=== PATIENT | male | born 1935 | race Caucasian/White ===

== ENCOUNTER 2016-05-30 14:34 | Emergency (ER) | payer MEDICARE, BC ==
[2016-05-30 14:53] VITALS: BP 134/68
--- NOTE | 2016-05-30 15:55 | UC ---
Ear Complaint HPI - HPI Summary HPI Summary: ONE WEEK RIGHT EAR PAIN, MILD TENDERNESS (RIGHT SIDE) WITH SWALLOWING. HISTORY OF FREQUENT EAR INFECTIONS. - History of Current Complaint Chief Complaint: UCEar Stated Complaint: EAR COMPLAINT Time Seen by Provider: 05/30/16 14:49 Hx Obtained From: Patient Onset/Duration: Sudden Onset, Lasting Days, Still Present Severity Initially: Moderate Severity Currently: Moderate Pain Intensity: 5 Pain Scale Used: 0-10 Numeric Associated Signs/Symptoms: Negative: Hearing Loss, Foreign Body Sensation, Trauma to Ear, Swelling @, URI Symptoms - Allergies/Home Medications Allergies/Adverse Reactions: Allergies Allergy/AdvReac Type Severity Reaction Status Date / Time IVP DYE Allergy Intermediate Hives Uncoded 05/30/16 14:53 PMH/Surg Hx/FS Hx/Imm Hx Previously Healthy: Yes Endocrine History Of: Reports: Diabetes - TYPE 2 Denies: Thyroid Disease Cardiovascular History Of: Reports: Hypertension Denies: Cardiac Disorders, Pacemaker/ICD Respiratory History Of: Reports: COPD, Asthma - INHALER, Bronchitis - chronic GI/ History Of: Reports: Kidney Stones - ABOUT 10 YEARS AGO, NO PROBLEMS Denies: Ulcer Neurological History Of: Denies: Seizures, Migraine Psychological History Of: Denies: Anxiety, Depression - Surgical History Surgical History: Yes Surgery Procedure, Year, and Place: LESION REMOVED OFF CHEST, NON MALIGNANT- 2014, [place]. STENT PLACED- 2000. ANGIOPLASTIES-. right eye surgery for glaucoma- 2016. RIGHT eye cataract- 2016 - Family History Known Family History: Positive: Cardiac Disease, Hypertension - Social History Occupation: Retired Lives: With Family Alcohol Use: Occasionally Substance Use Type: None Smoking Status (MU): Former Smoker Amount Used/How Often: 1.5PPD When Did the Patient Quit Smoking/Using Tobacco: 30 YEARS AGO - Immunization History Most Recent Influenza Vaccination: 2016 Review of Systems Constitutional: Negative Skin: Negative Eyes: Negative ENT: Sore Throat, Ear Ache Respiratory: Negative Cardiovascular: Negative Gastrointestinal: Negative Genitourinary: Negative Motor: Negative Neurovascular: Negative Musculoskeletal: Negative Neurological: Negative Psychological: Negative All Other Systems Reviewed And Are Negative: Yes Physical Exam Triage Information Reviewed: Yes Appearance: Well-Appearing, No Pain Distress, Well-Nourished Vital Signs: Initial Vital Signs Temp 96.3 F 05/30/16 14:47 Pulse 67 05/30/16 14:47 Resp 20 03/25/17 14:47 BP 134/68 05/30/16 14:47 Pulse Ox 95 05/30/16 14:47 ENT: Positive: Hearing grossly normal, Pharynx normal, TM dull, TM red - RIGHT EAR Dental Exam: Normal Neck exam: Normal Neck: Positive: Supple, Nontender, No Lymphadenopathy Respiratory Exam: Normal Respiratory: Positive: Chest non-tender, Lungs clear, Normal breath sounds, No respiratory distress, No accessory muscle use Cardiovascular Exam: Normal Cardiovascular: Positive: RRR, No Murmur, Pulses Normal Abdominal Exam: Normal Abdomen Description: Positive: Nontender, No Organomegaly Musculoskeletal Exam: Normal Musculoskeletal: Positive: Strength Intact, ROM Intact Neurological Exam: Normal Psychological Exam: Normal Psychological: Positive: Normal Response To Family Skin Exam: Normal Ear Complaint Course/Dx - Differential Dx/Diagnosis Differential Diagnosis/HQI/PQRI: Otitis Externa, Otitis Media Provider Diagnoses: RIGHT EAR OTITIS MEDIA Discharge - Discharge Plan Condition: Stable Disposition: HOME Prescriptions: Amoxicillin/Clavulanate TAB* [Augmentin TAB 875*] 875 mg PO BID #20 tab Patient Education Materials: Otitis Media (ED) Referrals: Robin Nazario MD [Medical Doctor] -
== END 2016-05-30 15:30 | disposition home or self-care (01) ==
LOC: UCEAST 14:34
DX: H66.91 Otitis media, unspecified, right ear (principal); I10 Essential (primary) hypertension; E11.9 Type 2 diabetes mellitus without complications; J45.909 Unspecified asthma, uncomplicated; J42 Unspecified chronic bronchitis; Z87.442 Personal history of urinary calculi; Z91.041 Radiographic dye allergy status; Z87.891 Personal history of nicotine dependence
CPT/HCPCS: 99212; G0463

== ENCOUNTER 2016-12-29 16:19 | Emergency (ER) | payer MEDICARE, BC ==
--- NOTE | 2016-12-29 17:26 | RAD ---
INDICATION: Hypoglycemia COMPARISON: June 22, 2009 TECHNIQUE: PA and lateral views were obtained. FINDINGS: Bones/Soft Tissues: There are no acute bony findings. Cardiomediastinal: The cardiomediastinal silhouette is normal. Lungs: There is hyperinflation with mild chronic interstitial changes. Pleura: There are no pleural effusions. Other: None IMPRESSION: HYPERINFLATION. NO ACTIVE DISEASE.
[2016-12-29 17:40] LABS: Hematocrit 47 % (42-52); Mean Corpuscular HGB Conc 32 g/dl (31-36); Mean Corpuscular Hemoglobin 27 pg (27-31); Mean Corpuscular Volume 85 fL (80-94); Mean Platelet Volume 9 um3 (7.4-10.4); Red Blood Count 5.53 10^6/ul (4.0-5.4); Red Cell Distribution Width 18 % (10.5-15); White Blood Count 12.6 10^3/ul (3.5-10.8)
[2016-12-29 17:46] LABS: Venous Bicarbonate HCO3 24.7 mmol/L (24-28)
[2016-12-29 18:18] LABS: Albumin 3.6 g/dL (3.2-5.2); BUN/Creatinine Ratio 26.3 (8-20); C Reactive Protein 7.52 mg/L (< 5.00); Calcium 8.7 mg/dL (8.6-10.3); EGFR African American 93.3 (>60); EGFR Non-African American 72.6 (>60); Globulin 3.1 g/dL (2-4); Magnesium 2.3 mg/dL (1.9-2.7); Potassium 3.7 mmol/L (3.5-5.0); Total Bilirubin 0.7 mg/dL (0.2-1.0); Total Protein 6.7 g/dL (6.4-8.9)
[2016-12-29 18:55] LABS: Troponin I 0.02 ng/mL (<0.04)
[2016-12-29 19:03] VITALS: BP 130/65
--- NOTE | 2016-12-31 07:17 | ED ---
Rashard Sue Benjamin, scribed for Erwin San MD on 12/29/16 at 1713 . HPI Diabetic - HPI Summary HPI Summary: 81yo male c/o sudden onset of shaking and jerking this morning in a parking lot. Pt was also pale and briefly passed out. Pt is diabetic and symptoms resolved after receiving glucose. Pt states he may have taken insulin without having a meal. According to family, pt has also been confused lately, unable to remember very familiar places with his house. No hx of aFib. - History Of Current Complaint Chief Complaint: EDDiabeticProb Time Seen by Provider: 12/29/16 16:50 Hx Obtained From: Patient, Family/Quality Control Inspector - daughter Onset/Duration: Sudden Onset, Lasting Minutes, Resolved Timing: Constant Severity Initially: Moderate Severity Currently: Mild Character: Comatose Aggravating: Diet Change - no food intake after taking insulin Alleviating: Other - glucose Associated Signs & Symptoms: Decreased Level of Conciousness - Allergies/Home Medications Allergies/Adverse Reactions: Allergies Allergy/AdvReac Type Severity Reaction Status Date / Time IVP DYE Allergy Intermediate Hives Uncoded 05/30/16 14:53 PMH/Surg Hx/FS Hx/Imm Hx Endocrine/Hematology History: Reports: Hx Diabetes - TYPE 2, Hx Anemia - TAKES IRON Denies: Hx Thyroid Disease Cardiovascular History: Reports: Hx Coronary Artery Disease, Hx Hypertension Denies: Hx Pacemaker/ICD Respiratory History: Reports: Hx Asthma - INHALER, Hx Chronic Obstructive Pulmonary Disease (COPD) Denies: Hx Sleep Apnea GI History: Reports: Hx Gastroesophageal Reflux Disease Denies: Hx Crohn's Disease, Hx Irritable Bowel, Hx Ulcer History: Reports: Hx Kidney Stones - ABOUT 10 YEARS AGO, NO PROBLEMS Denies: Hx Kidney Infection, Other Problems/Disorders Musculoskeletal History: Reports: Hx Arthritis - KNEES Sensory History: Reports: Hx Cataracts - surgery 11/26, Hx Contacts or Glasses - READING Denies: Hx Hearing Aid Opthamlomology History: Reports: Hx Cataracts - surgery 11/26, Hx Contacts or Glasses - READING Neurological History: Denies: Hx Headaches, Hx Migraine, Hx Seizures Psychiatric History: Denies: Hx Anxiety, Hx Depression - Surgical History Surgery Procedure, Year, and Place: LESION REMOVED OFF CHEST, NON MALIGNANT- 2014, [place]. STENT PLACED- 2000. ANGIOPLASTIES-. right eye surgery for glaucoma- 2016. RIGHT eye cataract- 2016 Hx Anesthesia Reactions: No Infectious Disease History: No Infectious Disease History: Denies: Hx Hepatitis, Hx Human Immunodeficiency Virus (HIV), Traveled Outside the [place] in Last 30 Days - Family History Known Family History: Positive: Cardiac Disease, Hypertension - Social History Lives: With Family Alcohol Use: Occasionally Substance Use Type: Reports: None Smoking Status (MU): Former Smoker Amount Used/How Often: 1.5PPD Review of Systems Positive: Other - diabetic Sz Eyes: Negative ENT: Negative Cardiovascular: Negative Respiratory: Negative Gastrointestinal: Negative Genitourinary: Negative Musculoskeletal: Negative Skin: Negative Positive: Syncope Psychological: Normal All Other Systems Reviewed And Are Negative: Yes Physical Exam - Summary Physical Exam Summary: VITAL SIGNS: Reviewed. GENERAL: Patient is a well-developed and nourished male who is lying comfortable in the stretcher. Patient is not in any acute respiratory distress. HEAD AND FACE: No signs of trauma. No ecchymosis, hematomas or skull depressions. No sinus tenderness. EYES: PERRLA, EOMI x 2, No injected conjunctiva, no nystagmus. EARS: Hearing grossly intact. Ear canals and tympanic membranes are within normal limits. MOUTH: Oropharynx within normal limits. NECK: Supple, trachea is midline, no adenopathy, no JVD, no carotid bruit, no c- spine tenderness, neck with full ROM. CHEST: Symmetric, no tenderness at palpation LUNGS: Clear to auscultation bilaterally. No wheezing or crackles. CVS: Regular rate and rhythm, S1 and S2 present, no murmurs or gallops appreciated. ABDOMEN: Soft, non-tender. No signs of distention. No rebound no guarding, and no masses palpated. Bowel sounds are normal. EXTREMITIES: FROM in all major joints, no edema, no cyanosis or clubbing. NEURO: Alert and oriented x 3. No acute neurological deficits. Speech is normal and follows commands. SKIN: Dry and warm Triage Information Reviewed: Yes Vital Signs On Initial Exam: Initial Vitals Temp Pulse Resp BP Pulse Ox 97.3 F 74 18 151/63 90 12/29/16 16:46 12/29/16 16:46 12/29/16 16:46 12/29/16 16:46 12/29/16 16:46 Vital Signs Reviewed: Yes - Roman Coma Scale Coma Scale Total: 15 Diagnostics - Vital Signs Vital Signs Temp Pulse Resp BP Pulse Ox 12/29/16 16:46 97.3 F 74 18 151/63 90 - Laboratory Lab Results: Lab Results 12/29/16 Range/Units 16:53 POC Glucose (mg/dL) 176 H (70-100) mg/dL Result Diagrams: 12/29/16 17:29 12/29/16 17:29 Lab Statement: Any lab studies that have been ordered have been reviewed, and results considered in the medical decision making process. - Radiology CXR Xray Interpretation: No Acute Changes - IMPRESSION: HYPERINFLATION. NO ACTIVE DISEASE. Radiology Interpretation Completed By: Radiologist - ED physician has reviewed this radiology report and agrees. - EKG 1721. Cardiac Rate: NL - 76bpm EKG Rhythm: Sinus Rhythm Ectopy: None EKG Interpretation: ST depression in V2 to V4. Diabetic Course/Dx - Course Assessment/Plan: 81yo male c/o sudden onset of shaking and jerking this morning in a parking lot. Pt was also pale and briefly passed out. Pt is diabetic and symptoms resolved after receiving glucose. Pt states he may have taken insulin without having a meal. According to family, pt has also been confused lately, unable to remember very familiar places with his house. No hx of aFib. Pt denies CP, SOB, and palpitations. He has no cardiac complaints. I believe all of his symptoms are due to hypoglycemia since he injected insulin without eating. Pts symptoms resolved soon after eating eventually. Therefore, pt will be discharged with follow up referral to his PCP. - Diagnoses Differential Dx: Diabetic Ketoacidosis, Hyperglycemia, Hypoglycemia Provider Diagnoses: Hypoglycemia associated with diabetes Discharge - Discharge Plan Condition: Stable Disposition: HOME Patient Education Materials: Hypoglycemia in a Person with Diabetes (ED) Referrals: Edward Bain MD [Primary Care Provider] - The documentation as recorded by the Rashard greco Benjamin accurately reflects the service I personally performed and the decisions made by me, Erwin San MD.
== END 2016-12-29 19:14 | disposition home or self-care (01) ==
LOC: ED 16:19
DX: E11.649 Type 2 diabetes mellitus with hypoglycemia without coma (principal); R55 Syncope and collapse; Z87.891 Personal history of nicotine dependence
CPT/HCPCS: 36415; 71020; 80053; 82550; 82803; 83605; 83735; 84484; 85025; 86140; 93005; 99283

== ENCOUNTER 2017-04-21 16:53 | Inpatient (IN) | payer MEDICARE, BC ==
--- NOTE | 2017-04-21 18:08 | RAD ---
Indication: Syncope. CT of the brain was performed without IV contrast. Ventricular structures are midline. No midline shift is noted. Central and cortical atrophy is noted. There is no evidence of intracranial mass or hemorrhage. No other high or low density lesions are identified. Mastoid air cells and paranasal sinuses are otherwise unremarkable. No fracture is noted. IMPRESSION: No intracranial mass or hemorrhage is noted.
[2017-04-21 18:17] LABS: EGFR Non-African American 70.1 (>60)
--- NOTE | 2017-04-21 18:21 | RAD ---
Indication: Syncope. 2 views of the chest including dual energy PA views demonstrates cardiomegaly. Interstitial edema consistent with vascular congestion is noted. No evidence of alveolar consolidation is noted. When compared to previous exam of December 29, 2016 no significant change is noted. IMPRESSION: Findings consistent with mild vascular congestion.
[2017-04-21 18:40] LABS: Hematocrit 25 % (42-52); Hemoglobin 7.4 g/dl (14.0-18.0); Mean Corpuscular HGB Conc 29 g/dl (31-36); Mean Corpuscular Hemoglobin 21 pg (27-31); Mean Corpuscular Volume 72 fL (80-94); Mean Platelet Volume 9 um3 (7.4-10.4); Platelet Count 175 10^3/ul (150-450); Red Blood Count 3.54 10^6/ul (4.0-5.4); Red Cell Distribution Width 25 % (10.5-15); White Blood Count 11.1 10^3/ul (3.5-10.8)
[2017-04-21 18:44] LABS: ABS Basophils 0.1 10^3/ul (0-0.2); ABS Eosinophils 0.1 10^3/ul (0-0.6); ABS Lymphocytes 0.7 10^3/ul (1.0-4.8); ABS Monocytes 0.9 10^3/ul (0-0.8); ABS Neutrophils 9.3 10^3/ul (1.5-7.7); ABS Nucleated RBC 0 10^3/ul; Eosinophil % 0.7 % (0-6); Lymphocyte % 6.7 % (25-47); Nucleated Red Blood Cells % 0.2
[2017-04-21] MEDS ORDERED: Potassium Chlor TAB* 20 MEQ TAB.ER PO ONE (18:53)
[2017-04-21] MEDS ORDERED: Docusate CAP* 100 MG PO PRN (20:32)
[2017-04-21] MEDS ORDERED: Senna TAB PO PRN (20:32)
[2017-04-21] MEDS ORDERED: Al Hydrox/Mg Hydrox/Simet LIQ* 30 ML UDC PO PRN (20:32)
[2017-04-21] MEDS ORDERED: Acetaminophen TAB* 325 MG PO PRN (20:32)
[2017-04-21] MEDS ORDERED: Ondansetron INJ* 2 MG/ML VIAL IV PRN (20:32)
[2017-04-21] MEDS ORDERED: Pantoprazole IV* 40 MG IV ONE (20:37)
[2017-04-21] MEDS ORDERED: Polyethylene Glycol 3350* 17 GM PACKET PO PRN (20:45)
[2017-04-21] MEDS ORDERED: Dextrose 50% Syringe 50 ML* 25 GM/50 ML SYRINGE IV PUSH PRN (20:46)
[2017-04-21 20:50] LABS: Urine Appearance Clear; Urine Blood Negative (Negative); Urine Color Straw; Urine Ketones Negative (Negative); Urine Protein Negative (Negative); Urine Urobilinogen Negative (Negative)
[2017-04-21] MEDS ORDERED: Furosemide IV* 10 MG/ML 2 ML VIAL (20 MG) IV ONE (22:00)
--- NOTE | 2017-04-21 22:03 | RAD ---
Indication: Constipation. Flat plate of the abdomen demonstrates no free air. Small bowel demonstrates no abnormal dilatation. Stool is present throughout colon. Patient status post cholecystectomy. No organomegaly is noted. Degenerative changes of the lumbar spine is noted. IMPRESSION: STOOL IS PRESENT THROUGHOUT THE COLON. PATIENT STATUS POST CHOLECYSTECTOMY.
[2017-04-21 23:28] LABS: Hematocrit 23 % (42-52); Hemoglobin 6.7 g/dl (14.0-18.0)
--- NOTE | 2017-04-22 00:15 | HP ---
CC: Edward Bain MD * HISTORY AND PHYSICAL: DATE OF ADMISSION: 04/21/17 TIME OF EVALUATION: 1999. PRIMARY CARE PHYSICIAN: Edward Bain MD CHIEF COMPLAINT: Syncope. HISTORY OF PRESENT ILLNESS: This is an 81-year-old male with a past medical history of pulmonary hypertension on 8 L of oxygen, COPD, and diastolic heart failure, who states he has not been feeling well recently. He went to see his captain room service in [place], Dr. Sanchez, for a followup. He saw the nurse practitioner. Because he was fluid overloaded and doubled up on his Lasix on the , he lost about 10 pounds in 4 days. That morning he really did not eat or drink very much. He went in to see them, they took blood, he felt dizzy with the headache all day. He came back home. While he was getting into the house off his oxygen, he fell flat on his face. He states 2 days while he was driving, he seemed really out of it, he was swerving, his was trying to straighten out. He missed the driveway. He did not pass out, but the states he was very out of it. He also states that for the past 2 weeks he has been constipated, which is very unusual for him. He denied any NSAID use. He does have a history of polyps in the past. His last colonoscopy was several years ago and Dr. Alvarez said he did not need to have any more colonoscopies after that. He denies any blood in his stool or bright red blood per rectum or black stools. He has over the past 2 years lost a considerable amount of weight from 190 pounds to 153 pounds. He was 166 pounds a week ago prior to doubling up on his Lasix. The patient denies any shortness of breath at rest. He has no chest pain, no nausea, vomiting. No abdominal discomfort. He does not use inhalers for his COPD. He had an issue with terrible itching when he stopped all of his medications and inhalers to try to limit an adverse reaction contributing to the itching, which did improve the itching. He is scheduled to set up to see Dr. Morrow from Pulmonology, he has not yet seen her yet, but he has an appointment in May. In the emergency room, the patient had labs, imaging, he was given potassium and was referred to the hospitalist service for further evaluation. PAST MEDICAL HISTORY: 1. Diabetes. 2. Diastolic heart failure. 3. COPD. 4. Pulmonary hypertension, on 8 L of oxygen. 5. History of coronary artery disease status post PCI. 6. Hyperlipidemia. 7. History of cholecystectomy. MEDICATIONS: 1. Aspirin 81 mg daily. 2. Lasix 10 mg daily. 3. Atorvastatin 80 mg daily. 4. Vitamin D 1000 units daily. 5. PreserVision AREDS 2 softgel 1 each p.o. daily. ALLERGIES: He is allergic to CONTRAST DYE, develops hives. SOCIAL HISTORY: He lives at home with his . He has limited mobility due to his respiratory status. His is his healthcare proxy. He quit smoking 30 years ago. At that time, he smoked 2 packs per day for 25 years. Rare alcohol use. I did address the code status. He wishes to be a DNR/DNI. FAMILY HISTORY: Mother from old age. Father at age 79 from an [place]. REVIEW OF SYSTEMS: A 14-point review of systems as mentioned in the HPI, otherwise negative. PHYSICAL EXAMINATION GENERAL: Frail elderly male in no acute distress, pale appearing, with his and his daughter at the bedside. VITAL SIGNS: Temp 97.6, pulse rate 77, respiratory rate 21, oxygen saturation 98% on 4 L, blood pressure 105/55. HEENT: Head: Normocephalic. Pupils equal and reactive, anicteric. Oropharynx : Mucous membranes are moist. NECK: Supple. No lymphadenopathy. RESPIRATORY: Diminished breath sounds. No wheezes, rhonchi, or rales. Increased work of breathing. CARDIAC: Regular rate and rhythm. Soft systolic murmur heard, most pronounced at the right sternal base. ABDOMEN: Positive bowel sounds, soft, nontender, nondistended. EXTREMITIES: No clubbing, cyanosis or edema. +1 DPs. NEUROLOGIC: Alert, oriented x3. No focal neurologic deficits. DIAGNOSTIC STUDIES/LAB DATA: White count 11, hemoglobin 7.4, hematocrit 25, platelets 175,000. Sodium is 139, potassium 3.3, chloride 99, bicarb 30, BUN 27 , creatinine 1.02, glucose 284. Lactic acid 3.8. Troponin 0.05. BNP 1095. TSH is 2. Radiographic data. Head CT, no intracranial mass or hemorrhage is noted. Chest x-ray, findings consistent with mild vascular congestion. EKG, sinus rhythm with some ST depression in the lateral leads. ASSESSMENT: This is an 81-year-old male with past medical history of severe pulmonary hypertension, on 8 L of oxygen with diastolic heart failure, who presents to the emergency room after having a syncopal episode. 1. Syncope. Assessment: This appears to be likely vasovagal in the setting of hypovolemia being aggressively diuresed and with his anemia added to that. He just had an echocardiogram done at [facility] on Wednesday, the . We will obtain those records. Plan: We will admit him to telemetry. I am going to give him a unit of blood and give him Lasix. Following his unit, going to hold his p.o. Lasix for now and have the team assess him in the morning for when it is appropriate to resume this. We will hold his aspirin in the setting of GI bleed. We will follow up on his echo results. No indication of repeating his echo. Trend his troponin, monitor his H and H and place him on PPI. In regards to the etiology behind his GI bleed, I am concerned for an underlying malignancy and weight loss and his bowel changes. I discussed at length that he would not tolerate endoscopy or EGD due to his severe pulmonary hypertension. Also of note, he states when he eats food, it feels like there is a knot in his epigastric region , so concerning for an underlying malignancy. I also do not think he would tolerate any management such as chemotherapy or surgery for malignancy. I think starting with an abdominal film to rule out significant constipation and following up with goals of care after getting the echocardiogram results from outside hospital. I discussed with them at length that he may be a candidate for hospice, but without all the information at hand, it is hard to make that decision right now. He seems to be agreeable to pursuing this if it is appropriate. I think if his echo shows severe pulmonary hypertension, it may be worthwhile having Dr. Morrow see him to discuss any further management for him prior to discharge and discussion of hospice eligibility for him. CHRONIC MEDICAL PROBLEMS: 1. Diastolic heart failure. Assessment and plan. I think he is over diuresed. I am giving home Lasix after his blood. We will hold his home Lasix dose for now and reassess with I's and O's, daily weights and clinical exam. 2. Diabetes. Continue Lantus at a lower level of 20 and lispro sliding scale. 3. For the hyperlipidemia, continue his Lipitor 80. 4. We will hold his aspirin as mentioned. 5. FEN. Place him on a low salt heart healthy diet. 6. DVT prophylaxis. We will place the patient on SCDs in the setting of his GI bleed. 7. Code status. DNR/DNI. MOLST form will be completed. TIME SPENT: Greater than 75 minutes was spent doing the history and physical, more than half the time spent in direct patient contact. [id number]/CPS #: [id number] MARTIN
[2017-04-22 06:00] LABS: ABS Basophils 0.1 10^3/ul (0-0.2); ABS Eosinophils 0.2 10^3/ul (0-0.6); ABS Lymphocytes 1.3 10^3/ul (1.0-4.8); ABS Neutrophils 9.4 10^3/ul (1.5-7.7); ABS Nucleated RBC 0 10^3/ul; Eosinophil % 1.6 % (0-6); Hematocrit 27 % (42-52); Lymphocyte % 11.1 % (25-47); Mean Corpuscular HGB Conc 30 g/dl (31-36); Mean Corpuscular Hemoglobin 22 pg (27-31); Mean Corpuscular Volume 74 fL (80-94); Mean Platelet Volume 10 um3 (7.4-10.4); Nucleated Red Blood Cells % 0; Platelet Count 171 10^3/ul (150-450); Red Blood Count 3.62 10^6/ul (4.0-5.4); Red Cell Distribution Width 24 % (10.5-15)
[2017-04-22 06:23] LABS: EGFR Non-African American 72.6 (>60)
[2017-04-22] MEDS: Pantoprazole IV* 40 MG IV SCH (07:57)
[2017-04-22] MEDS: Cholecalciferol TAB* 1000 UNITS PO SCH (07:57)
[2017-04-22] MEDS: Atorvastatin* 80 MG TAB PO SCH (07:57)
[2017-04-22] MEDS: Insulin GLARGINE(*) 1 UNITS UNIT SUBCUT SCH (07:57)
[2017-04-22] MEDS: [UNRECOGNIZED DRUG - OTHER] PO SCH (07:58)
[2017-04-22] MEDS: Insulin LISPRO* 1 UNITS UNIT SUBCUT SCH ×3 (09:36→18:19)
--- NOTE | 2017-04-22 14:14 | PN ---
Subjective Date of Service: 04/22/17 Interval History: Mr. Yun reports feeling ok other than feeling tired. He denies chest pain, SOB, nausea, or abdominal pain. He has ambulated in his room with no symptoms of lightheadedness or dizziness. He is tolerating oral intake. Objective Active Medications: Acetaminophen (Tylenol Tab*) 650 mg PO Q4H PRN Al Hydrox/Mg Hydrox/Simethicone (Maalox Plus*) 30 ml PO Q6H PRN Atorvastatin Calcium (Lipitor*) 80 mg PO DAILY JASON Cholecalciferol (Vitamin D Tab*) 1,000 units PO DAILY JASON Dextrose (D50w Syringe 50 Ml*) 12.5 gm IV PUSH .FOR FS < 60 - SS PRN Docusate Sodium (Colace Cap*) 100 mg PO BID PRN Insulin Glargine (Lantus(*)) 20 units SUBCUT Q24H JASON Insulin Human Lispro (Humalog*) 0 units SUBCUT AC JASON Nf: (Vit C/E/Zn/Coppr/Lutein/Zeaxan [Preservision Areds 2 Softgel] 1 each PO DAILY JASON Ondansetron HCl (Zofran Inj*) 4 mg IV Q4H PRN Pantoprazole Sodium (Protonix Iv*) 40 mg IV Q24H JASON Polyethylene Glycol/Electrolytes (Miralax*) 17 gm PO DAILY PRN Senna (Senokot Tab*) 1 tab PO BID PRN Vital Signs - 8 hr Vital Signs: Temp Pulse Resp BP Pulse Ox 97.5 F 65 16 109/57 99 04/22/17 08:00 04/22/17 08:00 04/22/17 08:00 04/22/17 08:00 04/22/17 08:00 Oxygen Devices in Use Now: High Flow Nasal Cannula Appearance: Male lying in bed in NAD Eyes: No Scleral Icterus Ears/Nose/Mouth/Throat: Mucous Membranes Moist Neck: Trachea Midline Respiratory: Symmetrical Chest Expansion and Respiratory Effort, - - Diminished breath sounds Cardiovascular: NL Sounds; No Murmurs; No JVD, No Edema Abdominal: NL Sounds; No Tenderness; No Distention Lymphatic: No Cervical Adenopathy Extremities: No Edema Skin: No Rash or Ulcers Neurological: Alert and Oriented x 3, NL Muscle Strength and Tone Nutrition: Taking PO's Result Diagrams: 04/22/17 05:45 04/22/17 05:45 Assess/Plan/Problems-Billing Assessment: Mr. Yun is an 81 yo M with a PMH of pulmonary hypertension on 8L NC at home, diabetes, diastolic HF, and COPD who was admitted on 04/21/17 with syncope. - Patient Problems (1) GI bleed Comment: - Hgb responded appropriately to one unit PRBC. - Hemodynamically stable. - Stool occult blood positive. - Patient not a good candidate for endoscopy or colonoscopy due to severe pulmonary hypertension. Will continue to monitor H/H and if bleeding does not resolve with consult GI. (2) Syncope Comment: - Suspect secondary to hypovolemia with aggressive diuresis outpatient as well as anemia. - Patient not orthostatic as of last evening. (3) Pulmonary hypertension Comment: - Severe, on 8L NC at home. (4) COPD (chronic obstructive pulmonary disease) Comment: - No evidence of acute exacerbation. - Not on meds outpatient. (5) Diabetes Comment: - BG 200 this AM. - Continue lantus and lispro SSI coverage with meals. (6) Diastolic CHF Comment: - S/P aggressive diuresis outpatient. - Obtaining most recent echo from [facility] from 04/19/17. - Continue to hold lasix for now. (7) Hyperlipidemia Comment: - Continue atorvastatin. (8) DVT prophylaxis Comment: - SCDs only in setting of GI bleeding. (9) DNR (do not resuscitate) Comment: Status and Disposition: Inpatient with expected LOS > 2 days. Plan for hospice consult.
[2017-04-22] MEDS ORDERED: Potassium Chlor TAB* 20 MEQ TAB.ER PO ONE (16:45)
[2017-04-23 05:56] LABS: Hematocrit 26 % (42-52); Hemoglobin 7.9 g/dl (14.0-18.0)
--- NOTE | 2017-04-23 08:59 | PN ---
Subjective Date of Service: 04/23/17 Interval History: Mr. Yun reports that he is feeling well today. He denies lightheadedness, chest pain, SOB, nausea, or abdominal pain. He denies melena or blood in the stool. Objective Active Medications: Acetaminophen (Tylenol Tab*) 650 mg PO Q4H PRN Al Hydrox/Mg Hydrox/Simethicone (Maalox Plus*) 30 ml PO Q6H PRN Atorvastatin Calcium (Lipitor*) 80 mg PO DAILY JASON Cholecalciferol (Vitamin D Tab*) 1,000 units PO DAILY JASON Dextrose (D50w Syringe 50 Ml*) 12.5 gm IV PUSH .FOR FS < 60 - SS PRN Docusate Sodium (Colace Cap*) 100 mg PO BID PRN Insulin Glargine (Lantus(*)) 20 units SUBCUT Q24H JASON Insulin Human Lispro (Humalog*) 0 units SUBCUT AC JASON Nf: (Vit C/E/Zn/Coppr/Lutein/Zeaxan [Preservision Areds 2 Softgel] 1 each PO DAILY JASON Ondansetron HCl (Zofran Inj*) 4 mg IV Q4H PRN Pantoprazole Sodium (Protonix Iv*) 40 mg IV Q24H JASON Polyethylene Glycol/Electrolytes (Miralax*) 17 gm PO DAILY PRN Senna (Senokot Tab*) 1 tab PO BID PRN Vital Signs: Temp Pulse Resp BP Pulse Ox 99.3 F 71 16 111/57 95 04/23/17 03:57 04/23/17 03:57 04/23/17 03:57 04/23/17 03:57 04/23/17 03:57 Oxygen Devices in Use Now: High Flow Nasal Cannula Appearance: Male lying in bed in NAD Eyes: No Scleral Icterus Ears/Nose/Mouth/Throat: Mucous Membranes Moist Neck: Trachea Midline Respiratory: Symmetrical Chest Expansion and Respiratory Effort, Clear to Auscultation Cardiovascular: NL Sounds; No Murmurs; No JVD, No Edema Abdominal: NL Sounds; No Tenderness; No Distention Lymphatic: No Cervical Adenopathy Extremities: No Edema Skin: No Rash or Ulcers Neurological: Alert and Oriented x 3, NL Muscle Strength and Tone Nutrition: Taking PO's Result Diagrams: 04/23/17 05:37 04/22/17 05:45 Assess/Plan/Problems-Billing Assessment: Mr. Yun is an 81 yo M with a PMH of pulmonary hypertension on 8L NC at home, diabetes, diastolic HF, and COPD who was admitted on 04/21/17 with syncope. - Patient Problems (1) GI bleed Comment: - Hgb stable. Hemodynamically stable. - Stool occult blood positive. - Hold aspirin. - Patient not a good candidate for endoscopy or colonoscopy due to severe pulmonary hypertension. Will continue to monitor H/H and if bleeding does not resolve with consult GI. (2) Syncope Comment: - Suspect secondary to hypovolemia with aggressive diuresis outpatient as well as anemia. - Patient not orthostatic as of last evening. (3) Pulmonary hypertension Comment: - Severe, on 8L NC at home. (4) COPD (chronic obstructive pulmonary disease) Comment: - No evidence of acute exacerbation. - Not on meds outpatient. (5) Diabetes Comment: - BG 200 this AM. - Continue lantus and lispro SSI coverage with meals. (6) Diastolic CHF Comment: - S/P aggressive diuresis outpatient. - Obtaining most recent echo from [place] from 04/19/17. - Continue to hold lasix for now. (7) Hyperlipidemia Comment: - Continue atorvastatin. (8) DVT prophylaxis Comment: - SCDs only in setting of GI bleeding. (9) DNR (do not resuscitate) Comment: Status and Disposition: Inpatient with expected LOS > 2 days. Plan for hospice consult.
[2017-04-23] MEDS: Atorvastatin* 80 MG TAB PO SCH (09:18)
[2017-04-23] MEDS: Cholecalciferol TAB* 1000 UNITS PO SCH (09:18)
[2017-04-23] MEDS: Pantoprazole IV* 40 MG IV SCH (09:19)
[2017-04-23] MEDS: Insulin LISPRO* 1 UNITS UNIT SUBCUT SCH ×3 (09:20→18:11)
[2017-04-23] MEDS: Insulin GLARGINE(*) 1 UNITS UNIT SUBCUT SCH (09:20)
[2017-04-23] MEDS: [UNRECOGNIZED DRUG - OTHER] PO SCH (09:26)
[2017-04-23] MEDS ORDERED: Potassium Chlor TAB* 20 MEQ TAB.ER PO ONE (14:29)
[2017-04-23] MEDS ORDERED: Potassium Chloride LIQUID* 20 MEQ PACKET PO ONE (16:00)
--- NOTE | 2017-04-23 16:06 | ED ---
Chriss Sue Angela, scribed for Erwin San MD on 04/21/17 at 1723 . Syncope/Near Syncope - HPI Summary HPI Summary: This pt is a 81 y/o male presenting to [facility] via EMS for a witnessed syncopal episode. Pt reports that he had a syncopal episode today when he was trying to open the door. He had LOC of 1-2 minutes. Prior to syncopal episode pt denies any pain, he states he only felt weak. Additionally throughout the day he has had "shooting" headaches lasting 10-15 seconds at a time. After he woke up, pt denies chest pain, SOB, headache. He reports he only felt weak. Pt has been on a recently prescribed diuretic for a week. Per EMS, pt's blood sugar today was 413. - History Of Current Complaint Chief Complaint: EDSyncope Time Seen by Provider: 04/21/17 17:02 Hx Obtained From: Patient Onset/Duration: Sudden Onset, Resolved Timing: Minutes - 1-2 Context: Loss Of Consciousness Activity At Onset: Other - opening a door Aggravating Factor(s): Nothing Alleviating Factor(s): Spontaneous Resolution Associated Signs And Symptoms: Headache, Other - weakness - Allergies/Home Medications Allergies/Adverse Reactions: Allergies Allergy/AdvReac Type Severity Reaction Status Date / Time IVP DYE Allergy Intermediate Hives Uncoded 05/30/16 14:53 Home Medications: Home Medications Aspirin EC Low Dose* [Ecotrin EC Low Dose 81 MG*] 81 mg PO DAILY 04/21/17 [ History Confirmed 04/21/17] Atorvastatin* [Lipitor*] 80 mg PO DAILY 04/21/17 [History Confirmed 04/21/17] Cholecalciferol TAB* [Vitamin D TAB*] 1,000 unit PO DAILY 04/21/17 [History Confirmed 04/21/17] Furosemide TAB* [Lasix TAB*] 10 mg PO DAILY 04/21/17 [History Confirmed 04/21/17 ] Vit C/E/Zn/Coppr/Lutein/Zeaxan [Preservision Areds 2 Softgel] 1 each PO DAILY [History Confirmed 04/21/17] PMH/Surg Hx/FS Hx/Imm Hx Endocrine/Hematology History: Reports: Hx Diabetes - TYPE 2, Hx Anemia - TAKES IRON Denies: Hx Thyroid Disease Cardiovascular History: Reports: Hx Coronary Artery Disease, Hx Hypertension Denies: Hx Pacemaker/ICD Respiratory History: Reports: Hx Asthma - INHALER, Hx Chronic Obstructive Pulmonary Disease (COPD) Denies: Hx Sleep Apnea GI History: Reports: Hx Gastroesophageal Reflux Disease Denies: Hx Crohn's Disease, Hx Irritable Bowel, Hx Ulcer History: Reports: Hx Kidney Stones - ABOUT 10 YEARS AGO, NO PROBLEMS Denies: Hx Kidney Infection, Other Problems/Disorders Musculoskeletal History: Reports: Hx Arthritis - KNEES Sensory History: Reports: Hx Cataracts - surgery 11/26, Hx Contacts or Glasses - READING Denies: Hx Hearing Aid Opthamlomology History: Reports: Hx Cataracts - surgery 11/26, Hx Contacts or Glasses - READING Neurological History: Denies: Hx Headaches, Hx Migraine, Hx Seizures Psychiatric History: Denies: Hx Anxiety, Hx Depression - Surgical History Surgery Procedure, Year, and Place: LESION REMOVED OFF CHEST, NON MALIGNANT- 2014, AUGUSTE. STENT PLACED- 2000. ANGIOPLASTIES-. right eye surgery for glaucoma- 2015. RIGHT eye cataract- 2015 Hx Anesthesia Reactions: No Infectious Disease History: No Infectious Disease History: Denies: Hx Hepatitis, Hx Human Immunodeficiency Virus (HIV), Traveled Outside the [place] in Last 30 Days - Family History Known Family History: Positive: Cardiac Disease, Hypertension - Social History Alcohol Use: Occasionally Substance Use Type: Reports: None Smoking Status (MU): Former Smoker Amount Used/How Often: 1.5PPD Review of Systems Negative: Fever, Chills Negative: Chest Pain Negative: Shortness Of Breath Positive: Headache, Weakness - generalized, Syncope All Other Systems Reviewed And Are Negative: Yes Physical Exam - Summary Physical Exam Summary: VITAL SIGNS: Reviewed. GENERAL: Patient is a well-developed and nourished male who is lying comfortable in the stretcher. Patient is not in any acute respiratory distress. HEAD AND FACE: No signs of trauma. No ecchymosis, hematomas or skull depressions. No sinus tenderness. EYES: PERRLA, EOMI x 2, No injected conjunctiva, no nystagmus. EARS: Hearing grossly intact. Ear canals and tympanic membranes are within normal limits. MOUTH: Oropharynx within normal limits. NECK: Supple, trachea is midline, no adenopathy, no JVD, no carotid bruit, no c- spine tenderness, neck with full ROM. CHEST: Symmetric, no tenderness at palpation LUNGS: Clear to auscultation bilaterally. No wheezing or crackles. CVS: Regular rate and rhythm, S1 and S2 present, no murmurs or gallops appreciated. ABDOMEN: Soft, non-tender. No signs of distention. No rebound no guarding, and no masses palpated. Bowel sounds are normal. Rectal Exam: Normal sphincter tone, no tomas blood or melena. EXTREMITIES: FROM in all major joints, no edema, no cyanosis or clubbing. NEURO: Alert and oriented x 3. No acute neurological deficits. Speech is normal and follows commands. SKIN: Dry and warm Triage Information Reviewed: Yes Vital Signs On Initial Exam: Initial Vitals Temp Pulse Resp BP Pulse Ox 98.2 F 70 18 104/82 96 04/21/17 16:55 04/21/17 16:55 04/21/17 16:55 04/21/17 16:55 04/21/17 16:55 Vital Signs Reviewed: Yes Diagnostics - Vital Signs Vital Signs Temp Pulse Resp BP Pulse Ox 04/21/17 16:55 98.2 F 70 18 104/82 96 - Laboratory Result Diagrams: 04/21/17 17:50 04/21/17 17:50 Lab Statement: Any lab studies that have been ordered have been reviewed, and results considered in the medical decision making process. - Radiology Chest XR Xray Interpretation: Positive (See Comments) - Findings consistent with mild vascular congestion. Dr. San has reviewed this radiology report. Radiology Interpretation Completed By: Radiologist - CT Head CT CT Interpretation: No Acute Changes - No intracranial mass or hemorrhage is noted. Dr. San has reviewed this radiology report. CT Interpretation Completed By: Radiologist - EKG 16:51 Cardiac Rate: NL EKG Rhythm: Sinus Rhythm - at 71 bpm EKG Interpretation: No ST elevation. T wave inversion V3-V6. ST depression V3- V6. EKG Comparison: No Significant Change - Different from prior EKG. Course/Dx Assessment/Plan: This pt is a 81 y/o male presenting to [facility] via EMS for a witnessed syncopal episode. Pt reports that he had a syncopal episode today when he was trying to open the door. He had LOC of 1-2 minutes. Prior to syncopal episode pt denies any pain, he states he only felt weak. Additionally throughout the day he has had "shooting" headaches lasting 10-15 seconds at a time. After he woke up, pt denies chest pain, SOB, headache. He reports he only felt weak. Pt has been on a recently prescribed diuretic for a week. Per EMS, pt's blood sugar today was 413. Test results show WBC of 11.1, microcytic anemia 7.4/25, potassium of 3.3, for which pt was given potassium chloride, lactic acid of 3.6, troponin of 0.05, BNP 1095. Head CT: No intracranial mass or hemorrhage is noted. Chest XR: Findings consistent with mild vascular congestion. In the ED course the pt was given IV fluids and potassium chloride. At this time I discussed the test results and finding with Dr. Pearson, hospitalist, who accepted the pt for admission. Pt is hemodynamically stable, alert and oriented x3. - Diagnoses Provider Diagnoses: Syncope, Symptomatic anemia, CHF exacerbation - Physician Notifications Discussed Care of Patient With: Elizabeth Pearson Time Discussed With Above Provider: 18:52 Instructed by Provider To: Other - I discussed pt care with Dr. Pearson, hospitalist, who has agreed to admit the pt. Discharge - Discharge Plan Condition: Stable Disposition: ADMITTED TO [facility] Referrals: Edward Bain MD [Primary Care Provider] - The documentation as recorded by the Chriss greco Angela accurately reflects the service I personally performed and the decisions made by me, Erwin San MD.
[2017-04-24 08:50] LABS: Hematocrit 26 % (42-52); Hemoglobin 7.7 g/dl (14.0-18.0)
[2017-04-24] MEDS: Insulin GLARGINE(*) 1 UNITS UNIT SUBCUT SCH (09:23)
[2017-04-24] MEDS: Cholecalciferol TAB* 1000 UNITS PO SCH (09:24)
[2017-04-24] MEDS: Insulin LISPRO* 1 UNITS UNIT SUBCUT SCH ×3 (09:24→17:51)
[2017-04-24] MEDS: Pantoprazole IV* 40 MG IV SCH (09:24)
[2017-04-24] MEDS: Atorvastatin* 80 MG TAB PO SCH (09:29)
[2017-04-24] MEDS: [UNRECOGNIZED DRUG - OTHER] PO SCH (09:30)
--- NOTE | 2017-04-24 14:27 | PN ---
Subjective Date of Service: 04/24/17 Interval History: Mr. Yun continues to deny any complaint. He feels that his breathing and generalized tiredness are about at baseline. He denies chest pain, SOB, nausea , or abdominal pain. Objective Active Medications: Acetaminophen (Tylenol Tab*) 650 mg PO Q4H PRN Al Hydrox/Mg Hydrox/Simethicone (Maalox Plus*) 30 ml PO Q6H PRN Atorvastatin Calcium (Lipitor*) 80 mg PO DAILY JASON Cholecalciferol (Vitamin D Tab*) 1,000 units PO DAILY JASON Dextrose (D50w Syringe 50 Ml*) 12.5 gm IV PUSH .FOR FS < 60 - SS PRN Docusate Sodium (Colace Cap*) 100 mg PO BID PRN Insulin Glargine (Lantus(*)) 20 units SUBCUT Q24H JASON Insulin Human Lispro (Humalog*) 0 units SUBCUT AC JASON Nf: (Vit C/E/Zn/Coppr/Lutein/Zeaxan [Preservision Areds 2 Softgel] 1 each PO DAILY JASON Ondansetron HCl (Zofran Inj*) 4 mg IV Q4H PRN Pantoprazole Sodium (Protonix Iv*) 40 mg IV Q24H JASON Polyethylene Glycol/Electrolytes (Miralax*) 17 gm PO DAILY PRN Senna (Senokot Tab*) 1 tab PO BID PRN Vital Signs: Temp Pulse Resp BP Pulse Ox 97.2 F 80 20 107/46 88 04/24/17 08:16 04/24/17 08:16 04/24/17 08:16 04/24/17 08:16 04/24/17 08:16 Oxygen Devices in Use Now: High Flow Nasal Cannula Appearance: Male lying in bed in NAD Eyes: No Scleral Icterus Ears/Nose/Mouth/Throat: Mucous Membranes Moist Neck: Trachea Midline Respiratory: Symmetrical Chest Expansion and Respiratory Effort, Clear to Auscultation Cardiovascular: NL Sounds; No Murmurs; No JVD, No Edema Abdominal: NL Sounds; No Tenderness; No Distention Extremities: No Edema Skin: No Rash or Ulcers Neurological: Alert and Oriented x 3, NL Muscle Strength and Tone Nutrition: Taking PO's Result Diagrams: 04/24/17 06:32 04/24/17 06:32 Assess/Plan/Problems-Billing Assessment: Mr. Yun is an 81 yo M with a PMH of pulmonary hypertension on 8L NC at home, diabetes, diastolic HF, and COPD who was admitted on 04/21/17 with syncope. - Patient Problems (1) GI bleed Comment: - Hgb drifting down. Hemodynamically stable. - Plan for another unit PRBC given cardiopulmonary co-morbidities. - Stool occult blood positive. - Hold aspirin. - Patient not a good candidate for endoscopy or colonoscopy due to severe pulmonary hypertension. Will continue to monitor H/H and if bleeding does not resolve with consult GI. (2) Syncope Comment: - Suspect secondary to hypovolemia with aggressive diuresis outpatient as well as anemia. - Patient not orthostatic as of last evening. (3) Pulmonary hypertension Comment: - Severe, on 8L NC at home. (4) COPD (chronic obstructive pulmonary disease) Comment: - No evidence of acute exacerbation. - Not on meds outpatient. (5) Diabetes Comment: - BG 200 this AM. - Continue lantus and lispro SSI coverage with meals. (6) Diastolic CHF Comment: - S/P aggressive diuresis outpatient. - Obtaining most recent echo from [place] from 04/19/17. - Continue to hold lasix for now. (7) Hyperlipidemia Comment: - Continue atorvastatin. (8) DVT prophylaxis Comment: - SCDs only in setting of GI bleeding. (9) DNR (do not resuscitate) Comment: Status and Disposition: Inpatient with expected LOS > 2 days. Plan for palliative consult given severe pulmonary hypertension.
[2017-04-25 06:24] LABS: Hematocrit 28 % (42-52); Hemoglobin 8.8 g/dl (14.0-18.0)
[2017-04-25] MEDS: Atorvastatin* 80 MG TAB PO SCH (09:06)
[2017-04-25] MEDS: Pantoprazole IV* 40 MG IV SCH (09:06)
[2017-04-25] MEDS: Cholecalciferol TAB* 1000 UNITS PO SCH (09:06)
[2017-04-25] MEDS: Insulin LISPRO* 1 UNITS UNIT SUBCUT SCH ×2 (09:07→12:46)
[2017-04-25] MEDS: [UNRECOGNIZED DRUG - OTHER] PO SCH (09:07)
[2017-04-25] MEDS: Insulin GLARGINE(*) 1 UNITS UNIT SUBCUT SCH (09:07)
--- NOTE | 2017-04-25 12:44 | PN ---
Subjective Date of Service: 04/25/17 Interval History: Mr. Yun still feels well and is happy for discharge today. Objective Active Medications: Acetaminophen (Tylenol Tab*) 650 mg PO Q4H PRN Al Hydrox/Mg Hydrox/Simethicone (Maalox Plus*) 30 ml PO Q6H PRN Atorvastatin Calcium (Lipitor*) 80 mg PO DAILY JASON Cholecalciferol (Vitamin D Tab*) 1,000 units PO DAILY JASON Dextrose (D50w Syringe 50 Ml*) 12.5 gm IV PUSH .FOR FS < 60 - SS PRN Docusate Sodium (Colace Cap*) 100 mg PO BID PRN Insulin Glargine (Lantus(*)) 20 units SUBCUT Q24H JASON Insulin Human Lispro (Humalog*) 0 units SUBCUT AC JASON Ondansetron HCl (Zofran Inj*) 4 mg IV Q4H PRN Pantoprazole Sodium (Protonix Iv*) 40 mg IV Q24H JASON Polyethylene Glycol/Electrolytes (Miralax*) 17 gm PO DAILY PRN Senna (Senokot Tab*) 1 tab PO BID PRN Vital Signs - 8 hr 04/25/17 04/25/17 07:25 08:00 Temperature 97.8 F Pulse Rate 70 Respiratory 18 18 Rate Blood Pressure 128/61 (mmHg) O2 Sat by Pulse 94 Oximetry Oxygen Devices in Use Now: High Flow Nasal Cannula Appearance: Male lying in bed in NAD Eyes: No Scleral Icterus Ears/Nose/Mouth/Throat: Mucous Membranes Moist Neck: Trachea Midline Respiratory: Symmetrical Chest Expansion and Respiratory Effort, Clear to Auscultation Cardiovascular: NL Sounds; No Murmurs; No JVD, No Edema Abdominal: NL Sounds; No Tenderness; No Distention Lymphatic: No Cervical Adenopathy Extremities: No Edema Skin: No Rash or Ulcers Neurological: Alert and Oriented x 3, NL Muscle Strength and Tone Nutrition: Taking PO's Result Diagrams: 04/25/17 05:38 04/24/17 06:32 Assess/Plan/Problems-Billing Assessment: Mr. Yun is an 81 yo M with a PMH of pulmonary hypertension on 8L NC at home, diabetes, diastolic HF, and COPD who was admitted on 04/21/17 with syncope. - Patient Problems (1) GI bleed Comment: - Hgb 8.8 after 2 units PRBC since admission. - Asymptomatic. - Stool occult blood positive. - Hold aspirin. - Patient not a good candidate for endoscopy or colonoscopy due to severe pulmonary hypertension. - Patient to have close follow up with PCP and GI if needed (2) Syncope Comment: - Suspect secondary to hypovolemia with aggressive diuresis outpatient as well as anemia. - Patient not orthostatic as of last evening. (3) Pulmonary hypertension Comment: - Severe, on 8L NC at home. (4) COPD (chronic obstructive pulmonary disease) Comment: - No evidence of acute exacerbation. - Not on meds outpatient. (5) Diabetes Comment: - Continue lantus and lispro SSI coverage with meals. (6) Diastolic CHF Comment: - Resume home lasix. (7) Hyperlipidemia Comment: - Continue atorvastatin. (8) DVT prophylaxis Comment: - SCDs only in setting of GI bleeding. (9) DNR (do not resuscitate) Comment: Status and Disposition: Inpatient with expected LOS > 2 days. Discharge to home.
[2017-04-25 12:58] VITALS: BP 103/50
--- NOTE | 2017-04-26 12:01 | DS ---
CC: Dr. Bain. * DISCHARGE SUMMARY: DATE OF ADMISSION: 04/21/17 DATE OF DISCHARGE: 04/25/17 PRIMARY CARE PHYSICIAN: Dr. Bain. ATTENDING PHYSICIAN: Dr. Richard Holcomb * (dictation provided by Vanessa Reilly NP) PRIMARY DIAGNOSES: 1. Anemia. 2. Suspected upper GI bleed. SECONDARY DIAGNOSES: 1. Type 2 diabetes. 2. Diastolic congestive heart failure. 3. Chronic obstructive pulmonary disease. 4. Pulmonary hypertension on 8 liters oxygen. 5. History of coronary artery disease status post PCI. 6. Hyperlipidemia. 7. History of cholecystectomy. MEDICATIONS AT THE TIME OF DISCHARGE: Hold aspirin. 1. Lasix 10 mg p.o. daily. 2. Atorvastatin 80 mg p.o. daily. 3. Vitamin D of 1000 units p.o. daily. 4. PreserVision AREDS 2 softgels 1 each p.o. daily. 5. Omeprazole 20 mg p.o. b.i.d. HOSPITAL COURSE: Mr. Yun is an 81-year-old male with a past medical history of diabetes and severe pulmonary hypertension on 8 liters of oxygen at home, diastolic congestive heart failure, and COPD who presented to the hospital on after a syncopal episode at home. Please see the dictated H and P from Luly Rosario for complete details. In brief, at the time of admission it was reported that the patient had just seen his nurse practitioner at [facility] due to fluid overload on the 16 of April. It is reported that he had lost about 10 pounds over 4 days with increased diuresis for fluid overload. He got up in the morning on the day of admission and synopsized and fell "flat on his face". He had also had a period a couple of days prior where he felt out of it and was confused. In the emergency room Mr. Yun had labs which showed a hemoglobin of 7.4, his last hemoglobin from our records was from December 2016 and it was 15 at that time. The patient's guaiac stool was positive. He was hemodynamically stable without tachycardia or hypotension. Mr. Yun was admitted to the hospital. His aspirin was held and he was started on Protonix b.i.d. He was given 1 unit of blood. The following day his hemoglobin was 8. On April 24 his hemoglobin had fallen to 7.7 likely in part due to blood draws perhaps with equilibration, but based on his numerous comorbidities he was transfused an additional unit. Today his hemoglobin is 8.8. I reviewed this case several times with Dr. Garcia from gastroenterology. We note that the patient would be a poor candidate for endoscopic evaluation given his severe pulmonary hypertension and 8 liters home oxygen. It is also likely that given the slow nature of the bleed that we might not find a treatable source. Plan was to hold the patient's aspirin and to monitor for 24 to 48 hours which we have accomplished. The patient has no overt evidence of bleeding. Our hope is that he will hopefully stop bleeding on his own, especially given they were holding aspirin and adding in a Proton-pump inhibitor b.i.d. Mr. Yun is feeling well today. He is up ambulating in his room without any difficulty. He is tired and short of breath at times, but he states this is entirely consistent with his baseline history of severe pulmonary hypertension on 8 liters nasal cannula. Mr. Yun is to follow up with a hemoglobin and hematocrit check on Wednesday with results forwarded to Dr. Bain. I have also asked that he follow up closely with Dr. Bain or someone from his staff this week. DISPOSITION: Home. DIET: Regular. ACTIVITY: As tolerated. FOLLOWUP PLANS: 1. Please follow up with Dr. Bain within the next week. 2. Please follow up with hemoglobin and hematocrit on Wednesday of this week. 3. Please follow up with gastroenterology as needed regarding this suspected slow upper GI bleed. TIME SPENT: Approximately 60 minutes were spent on the discharge of this patient, more than half the time spent with the patient at the bedside reviewing the events leading up to and during this hospitalization, performing the physical examination, and reviewing my plan of care. VANESSA REILLY NP [id number]/[facility] #: [id number] [facility]
== END 2017-04-25 16:14 | disposition home or self-care (01) | DRG 812 ==
LOC: ED 16:53 → MEDTELE 20:32
PROVIDERS: ADMIT Pediatrics; ATTEND Internal Medicine
PROC: 30233N1 Transfusion of Nonautologous Red Blood Cells into Peripheral Vein, Percutaneous Approach (ICD-10-PCS; principal; 2017-04-21)
DX: D64.9 Anemia, unspecified (principal); I11.0 Hypertensive heart disease with heart failure; I50.30 Unspecified diastolic (congestive) heart failure; I27.20 Pulmonary hypertension, unspecified; K92.2 Gastrointestinal hemorrhage, unspecified; E11.9 Type 2 diabetes mellitus without complications; J44.9 Chronic obstructive pulmonary disease, unspecified; I25.10 Atherosclerotic heart disease of native coronary artery without angina pectoris; E78.5 Hyperlipidemia, unspecified; Z98.61 Coronary angioplasty status; Z99.81 Dependence on supplemental oxygen; Z79.82 Long term (current) use of aspirin; Z79.899 Other long term (current) drug therapy; Z91.041 Radiographic dye allergy status; Z87.891 Personal history of nicotine dependence; Z66 Do not resuscitate; Z82.49 Family history of ischemic heart disease and other diseases of the circulatory system; E86.1 Hypovolemia
CPT/HCPCS: 36415; 70450; 71046; 74018; 80048; 80053; 81003; 82270; 82550; 82728; 83036; 83540; 83550; 83605; 83735; 83880; 84443; 84484; 85014; 85018; 85025; 85060; 85730; 86850; 86900; 86901; 86922; 93005; 94760; 99284; A9270-GY; J1940; P9040

== ENCOUNTER 2018-02-13 08:55 | Emergency (ER) | payer MEDICARE, BC ==
--- OUTSIDE RECORDS SUMMARY | 2018-02-13 09:13 | XMS REPORT | Continuity of Care Document ---
:1935 External Reference #:[id number] Author Name Boo Danielle M.D. Address [address] [place] [address] Care Team Providers Name Role Phone Edward Bain M.D. Primary Care Physician Unavailable Payers Type Date Identification Numbers Payment Provider Subscriber Effective: 2000 Policy Number: [id number] Medicare - [facility] Harjinder Yun PayID: [id number] [address] [facility] [place] [address] Policy Number: [id number] [facility] Emilia Yun PayID: [id number] [address] [address] [place] [address] Policy Number: [id number] [facility] Harjinder Yun PayID: [id number] [address] [place] [address] Advance Directives Description No Information Available Problems Date Description Provider Status Onset: 05/28/2014 Essential hypertension Active Onset: 05/28/2014 Pure hypercholesterolemia Active Onset: Asthma Active Onset: Pulmonary emphysema Active Onset: Benign prostatic hyperplasia Active Onset: Seasonal allergy Active Onset: Kidney stone Active Onset: Anemia Active Onset: Type 2 diabetes mellitus Active Onset: 08/13/2014 Primary open angle glaucoma Boo Danielle M.D. Active Onset: 08/13/2014 Severe / Advanced / End Stage Boo Danielle M.D. Active Glaucoma Onset: [place] - Hard of hearing Active Onset: 05/17/2015 Nonexudative age-related macular Boo Danielle M.D. Active degeneration Onset: 05/17/2015 Combined form of senile cataract Boo Danielle M.D. Active Onset: 05/17/2015 Type 2 diabetes mellitus with mild Boo Danielle M.D. Active nonproliferative diabetic retinopathy without macular edema Onset: 06/25/2015 Exudative age-related macular Boo Danielle M.D. Active degeneration Onset: 10/21/2015 Retinal edema Boo Danielle M.D. Active Onset: 12/26/2015 Presence of intraocular lens Boo Danielle M.D. Active Onset: 12/26/2015 Type 2 diabetes mellitus with mild Boo Danielle M.D. 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 Active degeneration, bilateral, with inactive choroidal neovascularization Onset: 02/19/2016 Type 2 diabetes mellitus with severe Eusebio Saunders M.D. Active nonproliferative diabetic retinopathy with macular edema, left eye Onset: 04/14/2016 Central retinal vein occlusion with Boo Danielle M.D. Active macular edema Onset: 04/14/2016 Bilateral primary open angle glaucoma Boo Danielle M.D. 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 Active disorders, left eye, moderate stage Onset: 10/11/2017 Migraine with typical aura Boo Danielle M.D. Active Family History Date Family Member(s) Problem(s) Comments Father No Current Problems Mother Cataract Social History Type Date Description Comments Sex Unknown Marital Status Legal Status: Occupation [employer] - Retired ETOH Use Rarely consumes alcohol Tobacco Use Start: Unknown End: Unknown Patient is a former smoker Recreational Drug Use Denies Drug Use Smoking Status Reviewed: 02/01/18 Patient is a former smoker Allergies, Adverse Reactions, Alerts Date Description Reaction Status Severity Comments 06/22/2016 Atenolol Active 06/22/2016 Sildenafil Active 05/28/2014 NKDA Inactive Medications Medication Date Status Form Strength Qnty SIG Indications Ordering Provider Patricia 05/31 Active Suspension 1-0.2% 8ml one drop H40.52x2 Boo Shrestha /2017 left eye Oseas Danielle twice per day Timolol Maleate 12/04 Active GFS 0.5% 5unit Instill 1 Boo Shrestha Ophthalmic Gel s Drop Into Oseas Danielle Forming Each Eye Once Daily Preservision 06/23 Active Capsules Areds 2 60cap 1 cap by Boo Shrestha Aresudarshan s mouth Oseas Danielle twice a day Accu-Chek Ena Active Strips Unknown Plus Oxygen Active Unknown Lantus Solostar Active Solution 100Unit/M Shelby,Matth Pen-Inject L leonard M.DDiane Vitamin D Active Tablets 2000Unit every day Unknown Atorvastatin Active Tablets 80mg McClintic, Calcium Urban Farooq Pantoprazole Active Tablets DR 20mg Unknown Sodium / Losartan Active Tablets 50mg Shelby,Matth Potassium ew M.DDiane Anoro Ellipta Active Aerosol 62.5-25mc Shelby,Matth 0000 g/Inh ew M.DDiane Vigamox 06/03 Hx Solution 0.5% 6ml one drop Boo Shrestha /2017 left eye Oseas Danielle - three 07/04 times day, start the day before surgery Prednisolone 06/03 Hx Suspension 1% 15uni 1 drops Boo Chavez ts left eye Oseas Danielle - three 07/16 times day. taper as directed Prednisolone 07/19 Hx Suspension 1% 10ml 1 drop Boo Shrestha Acetate /2016 right eye Oseas Danielle - every day 08/06 Simbrinza 12/04 Hx Suspension 1-0.2% 8ml 1 drop Z96.1 Boo Shrestha right eye Oseas Danielle - twice a 12/24 day /2015 Ciprofloxacin 11/21 Hx Solution 0.3% 10ml instill Boo Shrestha HCL one drop Oseas Danielle - in the 11/30 right eye /2015 three times a day, start the day before surgery Ketorolac 11/21 Hx Solution 0.5% 10ml 1 drop Boo Shrestha Tromethamine /2015 right eye Oseas Danielle - twice 12/24 /2015 Prednisolone 11/21 Hx Suspension 1% 15ml 1 drop Boo Shrestha Acetate /2015 right eye Oseas Danielle - twice 12/24 Atropine 01/03 Hx Solution 1% 5ml 1 drop Boo Shrestha Sulfate /2014 right eye Oseas Danielle - three 02/07 times a day Pred Forte 01/03 Hx Suspension 1% 15ml one in Boo Shrestha /2014 the drop Oseas Danielle - right eye 05/15 times a day Vigamox 01/03 Hx Solution 0.5% 3ml one drop Boo Shrestha /2014 right eye Oseas Danielle - three 01/09 times day Travoprost 10/28 Hx Solution 0.004% 5ml 1 drop Boo Shrestha /2014 right eye Oseas Danielle - every 01/04 Brimonidine 10/28 Hx Solution 0.15% 90Day 1 drop Boo Shrestha Tarconsuelo /2014 right matilde Danielle M.D. - twice a Alphagan P 10/15 Hx Solution 0.1% 1 drop 365.11 Boo Shrestha /2014 right matilde Danielle M.D. - twice a Simbrinza 08/31 Hx Suspension 1-0.2% 8ml 1 drop 365.11 Boo Shrestha /2014 right eye Oseas Danielle - twice a Alphagan P 08/13 Hx Solution 0.15% 15ml 1 drop 365.11 Boo Shrestha /2014 right matilde Danielle M.D. - twice a Travoprost 05/28 Hx Solution 0.004% 5ml 1 drop 365.11 Boo Shrestha /2014 Right Shashi M.D. - eyes 08/30 night Timolol Maleate 05/27 Hx GFS 0.5% 5ml 1 drop Boo Shrestha /2014 both eyes Oseas Danielle - every day 12/04 Humalog Mix 00 Hx Supn (75-25)10 25 units Unknown 75/25 Kwikpen /0000 0Unit/ML 2x per - day 07/04 Proventil HFA 00/ Hx Aerosol 108(90Bas Unknown e) - mcg/Act 11/28 Tamsulosin HCL 00/ Hx Capsules 0.4mg Unknown - 12/21 Valsartan / Hx Tablets 320mg Unknown / - 11/02 Diltiazem HCL / Hx Caps ER 180mg Unknown ER Coated Beads / 24HR - 05/15 Atenolol / Hx Tablets 25mg Unknown / - 06/22 Pantoprazole / Hx Tablets DR 40mg Unknown Sodium / - 11/02 Janumet Hx Tablets 50-1000mg - 12/21 Atorvastatin / Hx Tablets 80mg Unknown Calcium / - 11/02 Nitrostat Hx Tablets Sub 0.4mg 06/22 Aspir-[address] 81mg Unknown - 11/28 Iron / Hx Tablets 325(65Fe) Unknown / mg - 08/06 Brilinta / Hx Tablets 90mg Unknown - 03/04 Clopidogrel 00/00 Hx Tablets 75mg Unknown Bisulfate / - 11/02 Janumet Hx Tablets 50-500mg Unknown - 11/02 Advair Diskus 00/00 Hx Aerosol 100-50mcg Shelby,Matth / /Petar valle M.D. - 07/04 Prednisone 00/00 Hx Tablets 20mg McClintic, Urban García M.D. 06/22 Sildenafil 00/00 Hx Tablets 20mg McClintic, Citrate / Urban García M.D. 06/22 Aspirin Low /00 Hx Chewtabs 81mg Unknown Strength / - 11/02 Doxepin HCL 00/00 Hx Capsules 25mg Jama, Jose Aguila M.D. 07/04 Clopidogrel 00/00 Hx Tablets 75mg McClintic, Bisulfate / Urban García M.D. 06/07 Hydroxyzine HCL 00/00 Hx Tablets 25mg Unknown - 10/13 Doxepin HCL 00/00 Hx Capsules 10mg Unknown /0000 - 07/[address] 20mg Odell,Matth /0000 ew M.D. - 07/04 Atropine Hx Solution 1% 1 drop Boo Shrestha Sulfate /0000 left eye Oseas Danielle - 3 times 07/16 Latanoprost Hx Solution 0.005% 7.5un 1 drop Boo Shrestha /0000 its left eye Oseas Danielle - daily 07/[address] 20mg Odell,Matth / ew M.DDiane - 01/06 Medications Administered in Office Medication Date Status Form Strength Qnty SIG Indications Ordering Provider Avastin Administered Injection Boo Shrestha Bevacizumab Darrick Danielle M.D. Avastin Administered Injection Boo Shrestha Bevacizumab Darrick Danielle M.D. Avastin Administered Injection Boo Shrestha Bevacizumab 018 Oseas Danielle Avastin Administered Injection Boo Shrestha Bevacizumab 018 Oseas Danielle Avastin Administered Injection Boo Shrestha Bevacizumab 017 Oseas Danielle Avastin Administered Injection Boo Shrestha Bevacizumab Yu Danielle M.D. Avastin Administered Injection Boo Shrestha Bevacizumab Yu Danielle M.D. Avastin Administered Injection Boo Shrestha Bevacizumab 017 Oseas Danielle Avastin Administered Injection Boo Shrestha Bevacizumab 017 Oseas Danielle Avastin Administered Injection Boo Ha. Bevacizumab 017 Oseas Danielle Avastin Administered Injection Boo Shrestha Bevacizumab 017 Oesas Danielle Avastin Administered Injection Boo Ha. Bevacizumab 017 Oseas Danielle Avastin Administered Injection Boo J. Bevacizumab 017 Oseas Danielle Avastin Administered Injection Boo Shrestha Bevacizumab 017 Oseas Danielle Avastin Administered Injection Boo Shrestha Bevacizumab 017 Oseas Danielle Avastin Administered Injection Boo J. Bevacizumab 017 Oseas Danielle Avastin Administered Injection Boo Shrestha Bevacizumab 017 Oseas Danielle Avastin Administered Injection Boo Shrestha Bevacizumab 017 Oseas Danielle Avastin Administered Injection Eusebio Bevacizumab 016 Oseas Saunders Avastin Administered Injection Eusebio Bevacizumab 016 Oseas Saunders Avastin Administered Injection Eusebio Bevacizumab 016 Oseas Saunders Avastin Administered Injection Boo Shrestha Bevacizumab 016 Oseas Danielle Avastin Administered Injection Boo Shrestha Bevacizumab 016 Oseas Danielle Avastin Administered Injection Boo Shrestha Bevacizumab 016 Oseas Danielle Avastin Administered Injection Boo Shrestha Bevacizumab 016 Oseas Danielle Avastin Administered Injection Boo Shrsetha Bevacizumab Jose Antonio Danielle M.D. Immunizations Description No Information Available Vital Signs Date Vital Result Comment 01/10/2018 2:33pm BP Systolic 148 mmHg BP Diastolic 70 mmHg Heart Rate 68 /min Respiratory Rate 16 /min 12/06/2017 3:03pm BP Systolic 152 mmHg BP Diastolic 78 mmHg Heart Rate 74 /min Respiratory Rate 15 /min 07/05/2017 2:21pm BP Systolic 138 mmHg BP Diastolic 70 mmHg Heart Rate 74 /min Respiratory Rate 16 /min 06/01/2017 1:27pm BP Systolic 154 mmHg BP Diastolic 79 mmHg Heart Rate 70 /min Respiratory Rate 16 /min 03/22/2017 2:22pm BP Systolic 132 mmHg BP Diastolic 69 mmHg Heart Rate 78 /min Respiratory Rate 16 /min 02/15/2017 2:15pm BP Systolic 168 mmHg BP Diastolic 90 mmHg Heart Rate 88 /min Respiratory Rate 16 /min 01/11/2017 3:12pm BP Systolic 165 mmHg BP Diastolic 88 mmHg Heart Rate 88 /min Respiratory Rate 16 /min 11/23/2016 2:19pm BP Systolic 156 mmHg BP Diastolic 90 mmHg Heart Rate 77 /min Respiratory Rate 16 /min 11/03/2016 2:11pm BP Systolic 142 mmHg BP Diastolic 78 mmHg Heart Rate 80 /min Respiratory Rate 16 /min 10/05/2016 2:24pm BP Systolic 142 mmHg BP Diastolic 84 mmHg Heart Rate 89 /min Respiratory Rate 13 /min 09/28/2016 2:10pm BP Systolic 128 mmHg BP Diastolic 66 mmHg Heart Rate 88 /min Respiratory Rate 12 /min 08/31/2016 1:54pm BP Systolic 150 mmHg BP Diastolic 84 mmHg Heart Rate 94 /min Respiratory Rate 15 /min 08/24/2016 2:26pm BP Systolic 184 mmHg BP Diastolic 95 mmHg Heart Rate 72 /min Respiratory Rate 17 /min 07/20/2016 2:07pm BP Systolic 162 mmHg BP Diastolic 64 mmHg Heart Rate 86 /min Respiratory Rate 16 /min 06/22/2016 3:28pm BP Systolic 120 mmHg BP Diastolic 73 mmHg Heart Rate 70 /min Respiratory Rate 16 /min 06/15/2016 2:05pm BP Systolic 116 mmHg BP Diastolic 62 mmHg Heart Rate 64 /min Respiratory Rate 16 /min 05/12/2016 2:55pm BP Systolic 138 mmHg BP Diastolic 71 mmHg Heart Rate 60 /min Respiratory Rate 12 /min 04/14/2016 2:44pm BP Systolic 110 mmHg BP Diastolic 55 mmHg Heart Rate 60 /min Respiratory Rate 16 /min 03/31/2016 3:36pm BP Systolic 150 mmHg BP Diastolic 76 mmHg Heart Rate 79 /min Respiratory Rate 12 /min 03/04/2016 3:20pm BP Systolic 112 mmHg BP Diastolic 64 mmHg Heart Rate 73 /min Respiratory Rate 16 /min 02/19/2016 1:30pm BP Systolic 128 mmHg BP Diastolic 60 mmHg Heart Rate 80 /min Respiratory Rate 18 /min 01/15/2016 2:23pm BP Systolic 140 mmHg BP Diastolic 73 mmHg Heart Rate 70 /min Respiratory Rate 20 /min 10/21/2015 3:13pm BP Systolic 115 mmHg BP Diastolic 70 mmHg Heart Rate 60 /min Respiratory Rate 16 /min 09/30/2015 2:54pm BP Systolic 166 mmHg BP Diastolic 86 mmHg Heart Rate 69 /min Respiratory Rate 12 /min 09/23/2015 4:26pm BP Systolic 120 mmHg BP Diastolic 75 mmHg Heart Rate 68 /min Respiratory Rate 15 /min 09/02/2015 1:48pm BP Systolic 113 mmHg BP Diastolic 60 mmHg Heart Rate 63 /min Respiratory Rate 20 /min 07/29/2015 3:22pm BP Systolic 109 mmHg BP Diastolic 57 mmHg Heart Rate 83 /min Respiratory Rate 16 /min Results Description No Information Available Procedures Date Code Description Status 01/10/2018 77217 Injection Intravitreal Of A Pharmacologic Agent Completed 12/06/2017 16982 Injection Intravitreal Of A Pharmacologic Agent Completed 11/29/2017 61900 Scanning Computerized Opthalmic Diagnostic Posterior Seg Completed Retina 11/29/2017 18991 Est Patient Intermediate Exam Completed 10/25/2017 29191 Scanning Computerized Opthalmic Diagnostic Posterior Seg Completed Retina 10/25/2017 44192 Est Patient Intermediate Exam Completed 10/11/2017 93030 Scanning Computerized Opthalmic Diagnostic Posterior Seg Completed Retina 10/11/2017 40102 Est Patient Comprehensive Exam Completed 06/01/2017 30460 Injection Intravitreal Of A Pharmacologic Agent Completed 05/31/2017 57088 Scanning Computerized Opthalmic Diagnostic Posterior Seg Completed Retina 05/31/2017 97328 Est Patient Intermediate Exam Completed 03/22/2017 01794 Injection Intravitreal Of A Pharmacologic Agent Completed 02/15/2017 53564 Injection Intravitreal Of A Pharmacologic Agent Completed 01/11/2017 44610 Injection Intravitreal Of A Pharmacologic Agent Completed 12/11/2016 55378 Scanning Computerized Opthalmic Diagnostic Posterior Seg Completed Retina 12/11/2016 82947 Visual Field Exam Extended Completed 12/11/2016 55884 Est Patient Comprehensive Exam Completed 11/23/2016 75890 Injection Intravitreal Of A Pharmacologic Agent Completed 11/03/2016 35797 Injection Intravitreal Of A Pharmacologic Agent Completed 10/05/2016 67369 Injection Intravitreal Of A Pharmacologic Agent Completed 09/28/2016 70048 Injection Intravitreal Of A Pharmacologic Agent Completed 08/31/2016 06906 Injection Intravitreal Of A Pharmacologic Agent Completed 08/24/2016 38066 Injection Intravitreal Of A Pharmacologic Agent Completed 08/07/2016 06451 Scanning Computerized Opthalmic Diagnostic Posterior Seg Completed Retina 08/07/2016 70191 Est Patient Comprehensive Exam Completed 07/20/2016 01597 Injection Intravitreal Of A Pharmacologic Agent Completed 06/22/2016 17083 Injection Intravitreal Of A Pharmacologic Agent Completed 06/15/2016 39583 Injection Intravitreal Of A Pharmacologic Agent Completed 05/12/2016 12760 Injection Intravitreal Of A Pharmacologic Agent Completed 04/14/2016 70296 Scanning Computerized Opthalmic Diagnostic Posterior Seg Completed Retina 04/14/2016 08359 Est Patient Comprehensive Exam Completed 04/14/2016 86189 Injection Intravitreal Of A Pharmacologic Agent Completed 03/31/2016 85046 Injection Intravitreal Of A Pharmacologic Agent Completed 03/04/2016 46981 Injection Intravitreal Of A Pharmacologic Agent Completed 02/19/2016 31940 Injection Intravitreal Of A Pharmacologic Agent Completed 01/15/2016 54939 Injection Intravitreal Of A Pharmacologic Agent Completed 01/07/2016 97581 Scanning Computerized Opthalmic Diagnostic Posterior Seg Completed Retina 11/27/2015 98741 Extracapsular Cataract Extraction W/Intraocular Lens Completed 11/27/2015 0191T I-Stent Aqueous Drainage Device Completed 11/22/2015 21704 Computerized Corneal Topography Completed 11/22/2015 08163 Ophthalmic Biometry Completed 11/07/2015 54269 Scanning Computerized Opthalmic Diagnostic Posterior Seg Completed Retina 11/07/2015 47508 Est Patient Comprehensive Exam Completed 10/21/2015 34256 Injection Intravitreal Of A Pharmacologic Agent Completed 09/30/2015 12263 Injection Intravitreal Of A Pharmacologic Agent Completed 09/23/2015 93241 Injection Intravitreal Of A Pharmacologic Agent Completed 09/16/2015 01287 Scanning Computerized Opthalmic Diagnostic Posterior Seg Completed Retina 09/16/2015 85559 Est Patient Comprehensive Exam Completed 09/02/2015 87626 Injection Intravitreal Of A Pharmacologic Agent Completed 07/29/2015 30631 Injection Intravitreal Of A Pharmacologic Agent Completed 07/23/2015 31815 Scanning Computerized Opthalmic Diagnostic Posterior Seg Completed Retina 07/23/2015 65664 Est Patient Comprehensive Exam Completed 06/25/2015 61926 Est Patient Comprehensive Exam Completed 06/25/2015 69591 Determination Of Refractive State Completed 06/25/2015 56169 Scanning Computerized Opthalmic Diagnostic Posterior Seg Completed Retina 05/17/2015 82325 Scanning Computerized Ophthalmic Diagnostic Imag Posterior Completed Seg On 05/17/2015 74965 Visual Field Exam Extended Completed 05/17/2015 62876 Est Patient Comprehensive Exam Completed 01/02/2015 27254 Fistulization Sclera For Glaucoma, Trabeculectomy AB Completed Externo 10/15/2014 33646 Est Patient Intermediate Exam Completed 08/13/2014 94378 Visual Field Exam Extended Completed 08/13/2014 72411 Est Patient Intermediate Exam Completed 04/19/2014 54149 Trabeculoplasty By Laser Surgery Completed 03/23/2014 77996 Scanning Computerized Opthalmic Diagnostic Posterior Seg Completed Retina 03/23/2014 06836 Est Patient Comprehensive Exam Completed 03/17/2014 84512 Est Patient Comprehensive Exam Completed 02/08/2014 50992 Visual Field Exam Extended Completed 02/06/2014 34485 Est Patient Comprehensive Exam Completed 08/08/2013 44248 Scanning Computerized Opthalmic Diagnostic Posterior Seg Completed Retina 08/08/2013 92530 Visual Field Exam Extended Completed 08/08/2013 46706 Est Patient Comprehensive Exam Completed 01/02/2013 09700 Fundus Photography With Interpretation And Report Completed 01/02/2013 26515 Est Patient Comprehensive Exam Completed 06/28/2012 54688 Visual Field Exam Extended Completed 06/28/2012 16123 Est Patient Intermediate Exam Completed 12/31/2011 70607 Scanning Computerized Ophthalmic Diagnostic Imag Posterior Completed Seg On 12/31/2011 22031 Visual Field Exam Extended Completed 12/31/2011 64804 Determination Of Refractive State Completed 12/31/2011 97487 Est Patient Comprehensive Exam Completed 08/17/2011 06062 Trabeculoplasty By Laser Surgery Completed 08/10/2011 29906 Trabeculoplasty By Laser Surgery Completed 05/29/2011 51963 Visual Field Exam Extended Completed 05/29/2011 84566 Est Patient Intermediate Exam Completed 11/14/2010 95230 Scanning Computerized Ophthalmic Diagnostic Imag Posterior Completed Seg On 11/14/2010 30242 Est Patient Comprehensive Exam Completed 05/12/2010 22522 Scanning Computerized Ophthalmic Diagnostic Imag Posterior Completed Seg On 05/12/2010 31904 Scanning Computerized Ophthalmic Diagnostic Imag Posterior Completed Seg On 05/12/2010 78494 Visual Field Exam Extended Completed 05/12/2010 27217 Est Patient Comprehensive Exam Completed 10/15/2009 23704 Visual Field Exam Extended Completed 10/08/2009 46319 Est Patient Comprehensive Exam Completed 09/19/2008 82055 Visual Field Exam Extended Completed 09/11/2008 39033 Fundus Photography With Interpretation And Report Completed 09/11/2008 72790 Est Patient Comprehensive Exam Completed 08/31/2007 62609 Pachymetry Completed 08/31/2007 91104 Visual Field Exam Extended Completed 08/12/2007 17802 Scanning Laser W/Interp And Report Completed 08/12/2007 48766 Determination Of Refractive State Completed 08/12/2007 24236 Est Patient Comprehensive Exam Completed 03/30/2006 15276 Determination Of Refractive State Completed 03/30/2006 49652 Est Patient Comprehensive Exam Completed 02/13/2005 78756 Fundus Photography With Interpretation And Report Completed 02/13/2005 63287 Determination Of Refractive State Completed 02/13/2005 23350 Est Patient Comprehensive Exam Completed 02/13/2005 507 Refresh Tears Eye Drops Completed 01/22/2004 03661 Determination Of Refractive State Completed 01/22/2004 29374 Est Patient Comprehensive Exam Completed 12/24/2003 36725 Rescheduled Appointment Completed Encounters Type Date Location Provider Dx Diagnosis Office Visit 08/30/2017 Boo So H40.52x2 Glaucoma sec to 11:15a hollie PENALOZA M.D. [facility], left eye, moderate stage H34.8120 Central retinal vein occlusion, left eye, with macular edema H35.3212 Exdtve age-rel mclr degn, right eye, with inact chrdl neovas Office Visit 07/16/2017 11:45a Boo So H40.52x2 Glaucoma sec to hollie PENALOZA M.D. [facility], left eye, moderate stage Office Visit 07/05/2017 2:00p Boo So H40.52x2 Glaucoma sec to hollie PENALOZA M.D. [facility], left eye, moderate stage Office Visit 06/10/2017 1:00p Boo So H40.52x2 Glaucoma sec to hollie PENALOZA M.D. [facility], left eye, moderate stage H34.8120 Central retinal vein occlusion, left eye, with macular edema Office Visit 06/03/2017 1:00p Boo So H40.52x2 Glaucoma sec to hollie PENALOZA M.D. [facility], left eye, moderate stage H34.8120 Central retinal vein occlusion, left eye, with macular edema Office Visit 11/22/2015 11:45a Boo Shrestha H25.811 Combined forms of MD Danielle pc Arle[place], M.D. age-related cataract, right eye H25.812 Combined forms of age-related cataract, left eye H40.11x2 Primary open-angle glaucoma, moderate stage H35.32 Exudative age-related macular degeneration E11.329 Type 2 diab w mild nonprlf diabetic rtnop w/o macular edema Office Visit 12/21/2014 11:15a Boo Shrestha H40.11x3 Primary MD Danielle pc Arleo, M.D. open-angle glaucoma, severe stage Office Visit 10/29/2014 10:45a Boo Shrestha 365.11 Primary Open MD Shashi, hollie Danielle M.D. Angle Glaucoma 365.73 Severe / Advanced / End Stage Glaucoma Office Visit 08/31/2014 8:00a Boo So 365.11 Primary Open hollie PENALOZA M.D. Angle Glaucoma 365.73 Severe / Advanced / End Stage Glaucoma Office Visit 05/28/2014 9:15a Boo So 365.11 Primary Open hollie PENALOZA M.D. Angle Glaucoma 365.73 Severe / Advanced / End Stage Glaucoma Office Visit 09/28/2011 9:00a Boo So 365.11 Primary Open hollie PENALOZA M.D. Angle Glaucoma 365.72 Moderate Glaucoma Office Visit 07/10/2011 10:45a Boo So.11 Primary Open hollie PENALOZA M.D. Angle Glaucoma 365.73 Severe / Advanced / End Stage Glaucoma Plan of Treatment 02/01/2018 - Boo Danielle M.D.H35.3211 Exudative age-related macular degeneration, right eye, withComments:Smoking can increase the risk of developing or worsening any eye related disease, as well as affect your overall health. If you are a smoker, we strongly recommend that you quit.If you are not a smoker, we strongly recommend that you do not start. Dr. Danielle can detect changes in your Macular Degeneration that require treatment in your right eye. It is very important to keep all of your appointments and follow Dr. Danielle's instructions. If you have any questions, please call our office.Follow up:See Procedure Order LogH40.52x2 Glaucoma secondary to other eye disorders, left eye, ibiytnmS88.1 Presence of intraocular lensComments:The artificial lens implants in both eyes appear to be stable at this time.H34.4127 Central retinal vein occlusion, left eye, with macular edemaComments:You have a Central Retinal Vein Occlusion. This occurs when the retinal veins have become blocked by, amongst other things, fat deposits or a blood clot. You are at an increased risk of having a Central Retinal Vein Occlusion if there has been any hardening of the arteries in the eye. Please follow any instructions given to you by Dr. Danielle.
[2018-02-13 09:35] LABS: ABS Basophils 0.1 10^3/ul (0-0.2); ABS Eosinophils 0.2 10^3/ul (0-0.6); ABS Lymphocytes 0.9 10^3/ul (1.0-4.8); ABS Monocytes 0.7 10^3/ul (0-0.8); ABS Nucleated RBC 0 10^3/ul; Eosinophil % 1.6 %; Hematocrit 49 % (42-52); Hemoglobin 15.9 g/dl (14.0-18.0); Lymphocyte % 9.5 %; Mean Corpuscular HGB Conc 32 g/dl (31-36); Mean Corpuscular Hemoglobin 31 pg (27-31); Mean Corpuscular Volume 94 fL (80-94); Mean Platelet Volume 10.6 fL (7.4-10.4); Nucleated Red Blood Cells % 0.1; Platelet Count 134 10^3/ul (150-450); Red Blood Count 5.22 10^6/ul (4.00-5.40); Red Cell Distribution Width 15 % (10.5-15); White Blood Count 9.9 10^3/ul (3.5-10.8)
[2018-02-13 09:50] LABS: INR 1.23 (0.77-1.02)
[2018-02-13] MEDS ORDERED: Tranexamic Acid 1,000 MG/10 ML SDV IV ONE (09:56)
[2018-02-13 11:09] VITALS: BP 173/99
--- NOTE | 2018-02-13 11:12 | ED ---
Throat Pain/Nasal Congestion - HPI Summary HPI Summary: Pt. is an 82 y.o male who presents to the ER for a nose bleed x 3 days. Pt. lives at home with his . He has a hx COPD and pulmonary HTN and wears 6L NC for the last two years. Pt. is not anticoagulated. He denies hx of epistaxis. Pt. denies SOB, CP, lightheadness, dizziness, syncope. Pt. states his nose has been "gushing" blood the last few days. Pt. notes spitting out blood clots. Pt. states he was seen yesterday at [facility] and they attempted to cauterize right nare with silver nitrate stick. Symptoms are moderate in severity. No current modifying factors. - History of Current Complaint Chief Complaint: EDEpistaxis Time Seen by Provider: 02/13/18 09:10 Hx Obtained From: Patient, Family/[employer] Curer - Allergies/Home Medications Allergies/Adverse Reactions: Allergies Allergy/AdvReac Type Severity Reaction Status Date / Time Iodinated Contrast- Oral and Allergy Intermediate Hives Verified 02/13/18 09:01 IV Dye PMH/Surg Hx/FS Hx/Imm Hx Previously Healthy: Yes Endocrine/Hematology History: Reports: Hx Diabetes - TYPE 1, TAKES LANTUS DAILY , Hx Anemia - TAKES IRON Denies: Hx Bone Marrow Disease, Hx Sickle Cell Disease, Hx Thyroid Disease Cardiovascular History: Reports: Hx Congestive Heart Failure, Hx Coronary Artery Disease - STENTS PLACED X 2, 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, 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, Hx Hypertension , Other Cardiovascular Problems/Disorders - PULMONARY HTN, HYPERLIPIDEMIA Denies: Hx Pacemaker/ICD Respiratory History: Reports: Hx Asthma - INHALER, Hx Chronic Obstructive Pulmonary Disease (COPD), Other Respiratory Problems/Disorders - PULMONARY HTN Denies: Hx Sleep Apnea GI History: Reports: Hx Gastroesophageal Reflux Disease, Other GI Disorders - GI BLEED 04/25 Denies: Hx Cirrhosis, Hx Crohn's Disease, Hx Hiatal Hernia, Hx Irritable Bowel, Hx Jaundice, Hx Ulcer History: Reports: Hx Kidney Stones - ABOUT 10 YEARS AGO, NO PROBLEMS Denies: Hx Kidney Infection, Other Problems/Disorders Musculoskeletal History: Reports: Hx Arthritis - KNEES Sensory History: Reports: Hx Cataracts - SURGERY- RIGHT EYE 2016, Hx Contacts or Glasses - READING, Hx Glaucoma - LEFT EYE, Hx Hearing Problem Denies: Hx Hearing Aid Opthamlomology History: Reports: Hx Cataracts - SURGERY- RIGHT EYE 2016, Hx Contacts or Glasses - READING, Hx Glaucoma - LEFT EYE Neurological History: Denies: Hx Headaches, Hx Migraine, Hx Seizures Psychiatric History: Denies: Hx Anxiety, Hx Depression - Cancer History Hx Chemotherapy: No - Surgical History Surgery Procedure, Year, and Place: ANGIOPLASTIES- [facility]. STENTS PLACED- 2000, 2014 [facility]. LESION REMOVED FROM CHEST, BENIGN- 12/2014, [facility]. CATARACT RIGHT EYE 2016 [facility]. GLAUCOMA RIGHT EYE 2016 [facility] Hx Anesthesia Reactions: Yes - PT STATES NO GENERAL ANES, PULMONARY HTN - Immunization History Immunizations Up to Date: Yes Infectious Disease History: No Infectious Disease History: Denies: Hx Hepatitis, Hx Human Immunodeficiency Virus (HIV), Traveled Outside the US in Last 30 Days - Family History Known Family History: Positive: Cardiac Disease, Hypertension - Social History Occupation: Retired Lives: With Family Alcohol Use: Rare Alcohol Amount: 1 BEER/WEEK Substance Use Type: Reports: None Smoking Status (MU): Former Smoker Type: Cigarettes Amount Used/How Often: 1.5 PPD FOR 30 YRS Length of Time of Smoking/Using Tobacco: 30 YRS Have You Smoked in the Last Year: No Review of Systems Positive: Epistaxis Cardiovascular: Negative Respiratory: Negative Neurological: Negative All Other Systems Reviewed And Are Negative: Yes Physical Exam Triage Information Reviewed: Yes Vital Signs On Initial Exam: Initial Vitals Temp Pulse Resp BP Pulse Ox 97.1 F 87 16 159/108 85 02/13/18 08:58 02/13/18 08:58 02/13/18 08:58 02/13/18 08:58 02/13/18 08:58 Vital Signs Reviewed: Yes Appearance: Positive: Well-Appearing - Pt. sitting on side of bed in NAD. Wearing O2 mask. Family present Skin: Positive: Warm, Dry Head/Face: Positive: Normal Head/Face Inspection Eyes: Positive: Normal, EOMI ENT: Positive: Other - Small amount of dried blood in left nare. Mild active bleeding from right nare. I cannot see a definite source of bleeding. Small amount of blood in posterior pharynx. Neck: Positive: Supple Neurological: Positive: Normal, CN Intact II-III Psychiatric: Positive: Affect/Mood Appropriate Procedures - Procedure Summary Procedure Summary: 2cc TXA placed on 7.5cm anterior/posterior rhinorocket that was placed into right nare. 3cc air used to inflate balloon. Secured to right cheek with tape. Pt. tolerated well. Diagnostics - Vital Signs Vital Signs Temp Pulse Resp BP Pulse Ox 02/13/18 08:58 97.1 F 87 16 159/108 85 - Laboratory Lab Results: Lab Results 02/13/18 02/13/18 Range/Units 09:30 09:30 WBC 9.9 (3.5-10.8) 10^3/ul RBC 5.22 (4.00-5.40) 10^6/ul Hgb 15.9 (14.0-18.0) g/dl Hct 49 (42-52) % MCV 94 (80-94) fL MCH 31 (27-31) pg MCHC 32 (31-36) g/dl RDW 15 (10.5-15) % Plt Count 134 L (150-450) 10^3/ul MPV 10.6 H (7.4-10.4) fL Neut % (Auto) 80.3 % Lymph % (Auto) 9.5 % Charles % (Auto) 7.4 % Eos % (Auto) 1.6 % Baso % (Auto) 1.2 % Absolute Neuts (auto) 8.0 H (1.5-7.7) 10^3/ul Absolute Lymphs (auto) 0.9 L (1.0-4.8) 10^3/ul Absolute Monos (auto) 0.7 (0-0.8) 10^3/ul Absolute Eos (auto) 0.2 (0-0.6) 10^3/ul Absolute Basos (auto) 0.1 (0-0.2) 10^3/ul Absolute Nucleated RBC 0 10^3/ul Nucleated RBC % 0.1 INR (Anticoag Therapy) 1.23 H (0.77-1.02) APTT 30.1 (26.0-36.3) seconds Result Diagrams: 02/13/18 09:30 Lab Statement: Any lab studies that have been ordered have been reviewed, and results considered in the medical decision making process. EENT Course/Dx - Course Course Of Treatment: Pt. presenting with ongoing epistaxis from right nare. He chronically wears O2 NC. Suspect cause of his bleeding. Pt. was switched to a face mask. Pt. examined by Dr. Corrigan as well. Basic labs checked. Given fail of cauterization yeserday we have decided to place a rhinorocket for ongoing bleeding. VS stable and pt. well appearing. Dr. Corrigan recommends using TXA on packing. Right nare packed as noted above. CBC shows stable H and H. Platelets mildly low at 134k, INR 1.34, APTT 30. Pt. observed for about an hour of packing placed. On re-exam he has had no further bleeding and no blood in posterior pharynx. Will send pt. home with face mask. Augmentin rx. Pt. given ENT f.u and to schedule an apt. for packing removal in 48-72 hours. To avoid touching and blowing nose. To return to ER if bleeding returns. Pt. and family understand and agree with plan. - Differential Diagnoses Differential Diagnoses: Epistaxis - Diagnoses Provider Diagnoses: Epistaxis Discharge - Sign-Out/Discharge Documenting (check all that apply): Patient Departure - Discharge Plan Condition: Improved Disposition: HOME Prescriptions: Amoxicillin/Clavulanate TAB* [Augmentin TAB 875*] 875 mg PO BID #14 tab Patient Education Materials: Nosebleed (ED) Referrals: Toño Jaime MD [Medical Doctor] - Additional Instructions: Call Dr. Jaime's office tomorrow morning to schedule an appointment for Wednesday or Wednesday to have packing removed Schedule a follow up appointment with your PCP for repeat blood work Take antibiotic as directed to prevent infection Wear oxygen mask instead of nasal cannula Avoid touching and blowing nose Return to ER if bleeding returns - Billing Disposition and Condition Condition: IMPROVED Disposition: Home
== END 2018-02-13 11:09 | disposition home or self-care (01) ==
LOC: ED 08:55
DX: R04.0 Epistaxis (principal); Z87.442 Personal history of urinary calculi; Z87.891 Personal history of nicotine dependence; D69.6 Thrombocytopenia, unspecified
CPT/HCPCS: 36415; 85025; 85610; 85730; 99282

== ENCOUNTER 2018-07-13 20:47 | Inpatient (IN) | payer MEDICARE, BC ==
[2018-07-13] MEDS ORDERED: methylPREDNISolone 125 MG* 2 ML VIAL IV ONE (21:21)
[2018-07-13] MEDS ORDERED: Albuterol/Ipratropium NEB.SOL* Albuterol 2.5 MG/Ipratropium 0.5 MG 3 ML INH ONE (21:21)
--- NOTE | 2018-07-13 21:22 | ED ---
HPI Diabetic - HPI Summary HPI Summary: An 83 y/o male accompanied by family presents to [facility] with a chief complaint of low blood sugar today. The patient has a Hx of DM and takes Lantus. Per family, the patient did not eat much this morning, and at 14:00 he had a blood glucose of 35, he drank orange juice and it improved to 70, then he ate beans and chicken and it improved to 85 but then went back down to 72 over the course of 5 hours. He denies any pain or fever, but family reports that he was weak and confused. The patient is also having difficulty breathing upon arrival, but family report that he is always SOB. The patient is on O2 at home. He says that he usually sleeps in a recliner with no pillows. - History Of Current Complaint Chief Complaint: EDShortnessOfBreath Time Seen by Provider: 07/13/18 21:07 Hx Obtained From: Patient Onset/Duration: Lasting Hours, Still Present Timing: Hours Severity Initially: Mild Severity Currently: Mild Character: Alert Aggravating: Nothing Alleviating: Nothing Associated Signs & Symptoms: Shortness of Breath - Allergies/Home Medications Allergies/Adverse Reactions: Allergies Allergy/AdvReac Type Severity Reaction Status Date / Time Iodinated Contrast- Oral and Allergy Intermediate Hives Verified 02/13/18 09:01 IV Dye PMH/Surg Hx/FS Hx/Imm Hx Endocrine/Hematology History: Reports: Hx Diabetes - TYPE 1, TAKES LANTUS DAILY , Hx Anemia - TAKES IRON Denies: Hx Bone Marrow Disease, Hx Sickle Cell Disease, Hx Thyroid Disease Cardiovascular History: Reports: Hx Congestive Heart Failure, Hx Coronary Artery Disease - STENTS PLACED X 2, 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, 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, Hx Hypertension , Other Cardiovascular Problems/Disorders - PULMONARY HTN, HYPERLIPIDEMIA Denies: Hx Pacemaker/ICD Respiratory History: Reports: Hx Asthma - INHALER, Hx Chronic Obstructive Pulmonary Disease (COPD), Other Respiratory Problems/Disorders - PULMONARY HTN Denies: Hx Sleep Apnea GI History: Reports: Hx Gastroesophageal Reflux Disease, Other GI Disorders - GI BLEED 04/25 Denies: Hx Cirrhosis, Hx Crohn's Disease, Hx Hiatal Hernia, Hx Irritable Bowel, Hx Jaundice, Hx Ulcer History: Reports: Hx Kidney Stones - ABOUT 10 YEARS AGO, NO PROBLEMS Denies: Hx Kidney Infection, Other Problems/Disorders Musculoskeletal History: Reports: Hx Arthritis - KNEES Sensory History: Reports: Hx Cataracts - SURGERY- RIGHT EYE 2016, Hx Contacts or Glasses - READING, Hx Glaucoma - LEFT EYE, Hx Hearing Problem Denies: Hx Hearing Aid Opthamlomology History: Reports: Hx Cataracts - SURGERY- RIGHT EYE 2016, Hx Contacts or Glasses - READING, Hx Glaucoma - LEFT EYE Neurological History: Denies: Hx Headaches, Hx Migraine, Hx Seizures Psychiatric History: Denies: Hx Anxiety, Hx Depression - Cancer History Hx Chemotherapy: No - Surgical History Surgery Procedure, Year, and Place: ANGIOPLASTIES- [facility]. STENTS PLACED- 2000, 2014 [facility]. LESION REMOVED FROM CHEST, BENIGN- 12/2014, [place]. CATARACT RIGHT EYE 2016 [facility]. GLAUCOMA RIGHT EYE 2016 [facility] Hx Anesthesia Reactions: Yes - PT STATES NO GENERAL ANES, PULMONARY HTN Infectious Disease History: No Infectious Disease History: Denies: Hx Hepatitis, Hx Human Immunodeficiency Virus (HIV), Traveled Outside the US in Last 30 Days - Family History Known Family History: Positive: Cardiac Disease, Hypertension - Social History Alcohol Use: Rare Alcohol Amount: 1 BEER/WEEK Substance Use Type: Reports: None Smoking Status (MU): Former Smoker Type: Cigarettes Amount Used/How Often: 1.5 PPD FOR 30 YRS Length of Time of Smoking/Using Tobacco: 30 YRS Have You Smoked in the Last Year: No Review of Systems Positive: Other - 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 GENERAL: Patient is a well-developed and nourished MALE who is lying comfortable in the stretcher. Patient is not in any acute respiratory distress. HEAD AND FACE: No signs of trauma. No ecchymosis, hematomas or skull depressions. No sinus tenderness. EYES: PERRLA, EOMI x 2, No injected conjunctiva, no nystagmus. EARS: Hearing grossly intact. Ear canals and tympanic membranes are within normal limits. MOUTH: Oropharynx within normal limits. NECK: Supple, trachea is midline, no adenopathy, no JVD, no carotid bruit, no c- spine tenderness, neck with full ROM CHEST: Barrel chest, no tenderness at palpation LUNGS: Decreased breath sounds bilaterally. CVS: Regular rate and rhythm, S1 and S2 present, no murmurs or gallops appreciated. ABDOMEN: Soft, non-tender. No signs of distention. No rebound no guarding, and no masses palpated. Bowel sounds are normal. EXTREMITIES: FROM in all major joints, no edema, no cyanosis or clubbing. NEURO: Alert and oriented x 3. No acute neurological deficits. Speech is normal and follows commands. SKIN: Dry and warm Triage Information Reviewed: Yes Vital Signs On Initial Exam: Initial Vitals Temp Pulse Resp BP Pulse Ox 97.4 F 77 22 115/70 83 07/13/18 20:49 07/13/18 20:49 07/13/18 20:49 07/13/18 20:49 07/13/18 20:49 Vital Signs Reviewed: Yes Diagnostics - Vital Signs Vital Signs Temp Pulse Resp BP Pulse Ox 07/13/18 20:49 97.4 F 77 22 115/70 83 - Laboratory Result Diagrams: 07/13/18 21:30 07/13/18 21:33 Lab Statement: Any lab studies that have been ordered have been reviewed, and results considered in the medical decision making process. - Radiology CXR Radiology Interpretation Completed By: ED Physician Summary of Radiographic Findings: no acute process. Pending official imaging report. - EKG 22:19 Cardiac Rate: NL - 68 bpm EKG Rhythm: Sinus Rhythm Summary of EKG Findings: NSR at 68 bpm, minimal ST depression in ekaterina-septal leads. Diabetic Course/Dx - Course Course Of Treatment: An 83 y/o male presents to [facility] c/o low blood sugar and SOB. The physical exam revealed barrel chest and decreased breath sounds bilaterally. In the ED course the patient was given Albuterol INH, Duoneb INH, Magnesium IV, and Solu-medrol IV. CXR showed no acute process. Bloodwork and chemistries obtained. Troponin of 0.04 at 21:33. EKG showed NSR at 68 bpm, minimal ST depression in ekaterina-septal leads. Case discussed with Dr. Rosario, hospitalist, who accepted the patient for admission. The patient is agreeable with this plan. - Diagnoses Provider Diagnoses: COPD (chronic obstructive pulmonary disease) - Physician Notifications Discussed Care Of Patient With: Luly Rosario Time Discussed With Above Provider: 22:16 Instructed by Provider To: Admit As Inpatient Discharge - Sign-Out/Discharge Documenting (check all that apply): Patient Departure - admit Patient Received Moderate/Deep Sedation with Procedure: No - Discharge Plan Condition: Fair Disposition: ADMITTED TO [facility] - Billing Disposition and Condition Condition: FAIR Disposition: Admitted to [facility] - Attestation Statements Document Initiated by Scribe: Yes Documenting Scribe: Quoc Burrows Provider For Whom Scribe is Documenting (Include Credential): Reyna Shah MD Scribe Attestation: Quoc Sue, scribed for Reyna Shah MD on 07/14/18 at 0558. Scribe Documentation Reviewed: Yes Provider Attestation: The documentation as recorded by the Quoc greco accurately reflects the service I personally performed and the decisions made by Yelena alejandro MD Status of Scribe Document: Viewed
[2018-07-13] MEDS ORDERED: Magnesium Sulfate 2 GM IV* 2 GM/50 ML BAG IVPB ONE (21:23)
[2018-07-13 21:43] LABS: ABS Basophils 0.1 10^3/ul (0-0.2); ABS Eosinophils 0.2 10^3/ul (0-0.6); ABS Lymphocytes 0.8 10^3/ul (1.0-4.8); ABS Monocytes 0.6 10^3/ul (0-0.8); ABS Neutrophils 5.6 10^3/ul (1.5-7.7); Eosinophil % 2.9 %; Hematocrit 50 % (42-52); Hemoglobin 16.1 g/dL (14.0-18.0); Lymphocyte % 11.5 %; Mean Corpuscular HGB Conc 32 g/dL (31-36); Mean Corpuscular Hemoglobin 29 pg (27-31); Mean Corpuscular Volume 91 fL (80-94); Platelet Count 131 10^3/uL (150-450); Red Blood Count 5.54 10^6 /uL (4.18-5.48); Red Cell Distribution Width 18 % (10.5-15); White Blood Count 7.3 10^3/uL (3.5-10.8)
[2018-07-13 21:52] LABS: Activated Partial Thrombo Time 30.7 seconds (26.0-36.3); INR 1.41 (0.82-1.09)
[2018-07-13 22:03] LABS: Albumin 3.7 g/dL (3.2-5.2); Anion Gap 7 mmol/L (2-11); CO2 Carbon Dioxide 32 mmol/L (22-32); Calcium 9.1 mg/dL (8.6-10.3); Chloride 104 mmol/L (101-111); Potassium 3.8 mmol/L (3.5-5.0); Sodium 143 mmol/L (135-145)
[2018-07-13 22:09] LABS: ALT 24 U/L (7-52); AST 26 U/L (13-39); Albumin/Globulin Ratio 1.2 (1-3); Alkaline Phosphatase 144 U/L (34-104); BUN/Creatinine Ratio 22.8 (8-20); Blood Urea Nitrogen 36 mg/dL (6-24); C Reactive Protein 13.87 mg/L (<8.01); EGFR African American 50.9 (>60); EGFR Non-African American 42.1 (>60); Globulin 3.1 g/dL (2-4); Glucose 126 mg/dL (70-100); Total Protein 6.8 g/dL (6.4-8.9)
[2018-07-13 22:11] LABS: Troponin I 0.04 ng/mL (<0.04)
[2018-07-13] MEDS: Albuterol 2.5 MG/3 ML NEB.SOL* (0.083%) INH SCH (22:27)
[2018-07-14] MEDS ORDERED: Furosemide IV* 10 MG/ML 10 ML VIAL (100 MG) IV ONE (00:10)
[2018-07-14] MEDS ORDERED: hydrOXYzine HCL TAB* 25 MG PO PRN (00:11)
[2018-07-14] MEDS ORDERED: Acetaminophen TAB* 325 MG PO PRN (00:14)
[2018-07-14] MEDS ORDERED: Albuterol/Ipratropium NEB.SOL* Albuterol 2.5 MG/Ipratropium 0.5 MG 3 ML INH PRN (00:14)
[2018-07-14 00:55] LABS: Magnesium 2.8 mg/dL (1.9-2.7)
[2018-07-14 00:58] LABS: Troponin I 0.03 ng/mL (<0.04)
[2018-07-14] MEDS: Albuterol 2.5 MG/3 ML NEB.SOL* (0.083%) INH SCH (01:03)
[2018-07-14 01:26] LABS: TSH (Thyroid Stimulating Horm) 1.96 mcIU/mL (0.34-5.60)
--- NOTE | 2018-07-14 03:46 | HP ---
CC: Edward Bain MD* HISTORY AND PHYSICAL: DATE OF ADMISSION: 07/14/18 TIME OF EVALUATION: 0000 PRIMARY CARE PHYSICIAN: Edward Bain MD CHIEF COMPLAINT: Low blood sugars. HISTORY OF PRESENT ILLNESS: This is an 83-year-old man with a past medical history of severe pulmonary hypertension and COPD, on 6 to 8 L continuous, who presented to the emergency room for concern with low blood sugars. The and the daughter who are constantly with him had to go out and around 2 p.m. when they returned home earlier today, he seemed out of it, asking for juice. They checked his blood sugar, it was 36. They give him several glasses of orange juice, it came up somewhat to 67 and then he ate some chicken and beans and his blood glucose went up to 85 at that point, but then it started to go back down in the 70s and because of this, he came in for further evaluation. He also fell while he was trying to get up when his blood sugar was low. The patient denies any chest pain. He states his breathing is the same, no worse, he sleeps in a recliner. He has noticed an increase in lower extremity swelling and abdominal distention and 10-pound weight gain over the past month despite minimal p.o. intake. They could not get in to see their primary care physician, so the daughter was giving him torsemide 10 mg in the morning and giving him another dose in the afternoon for the past week. He had lost a few pounds, but still has a lot of lower extremity swelling. The patient denies any fevers, states he is always cold. No recent changes in his insulin. He normally takes Lantus 35 units in the morning. He states regarding his COPD and pulmonary hypertension, he is usually on 6 to 8 L. When he wakes up, his O2 stat is usually in the high 70s and then he has to cough and take some deep breaths and then eventually he can bring it up to the high to low 90s. Otherwise, review of systems is negative. In the emergency room, the patient had labs and imaging, there were concerns for his hypoxia. He was given Solu-Medrol 125 mg, magnesium 2 g, 1 DuoNeb and albuterol neb and referred to the hospitalist service for further evaluation. PAST MEDICAL HISTORY: 1. COPD, on 6 to 8 L. 2. Severe pulmonary hypertension. 3. Diabetes. 4. Coronary artery disease. 5. Recent diagnosis of chronic itching with an unclear etiology, followed by Dr. Yun. 6. Hyperlipidemia. 7. GERD. 8. History of an upper GI bleed. MEDICATIONS: 1. The patient is taking 2 medications, triamcinolone cream for the itching and another oral medication. They are not sure for the cream as well. 2. Lantus 35 units in the morning. 3. Torsemide 10 mg, recently increased over the past week to b.i.d. by the family. 4. Atorvastatin 80 mg p.o. daily. 5. Timolol eye drops. 6. Simbrinza eye drops. 7. Anoro Ellipta. 8. Albuterol inhaler as needed. ALLERGIES: CONTRAST. FAMILY HISTORY: Reviewed and noncontributory. SOCIAL HISTORY: The patient lives at home with his . He is a former smoker , quit more than 30 years ago, 50-pack year history. No alcohol use or illicit drug use. He does ambulate independently. He is independent with ADLs, but takes very long to do anything. According to the daughter, he sleeps about 90% of the time. Code status confirmed he is a DNR/DNI. REVIEW OF SYSTEMS: A 14-point review of systems is as mentioned in the HPI, otherwise negative. PHYSICAL EXAMINATION GENERAL: Frail, elderly male, in no acute distress. Daughter at the bedside. VITAL SIGNS: Temp 97.4, pulse rate 79, respiratory rate 17, oxygen saturation 88% on 10 L, blood pressure 144/93. HEENT: Head normocephalic. Pupils equal and reactive. Conjunctivae injected. No purulent drainage. Oropharynx: Mucous membranes moist. Positive posterior oropharynx erythema. No exudate or tonsillar edema. NECK: Supple. No lymphadenopathy. RESPIRATORY: Poor aeration. No wheeze, rhonchi, or rales. CARDIAC: Regular rate and rhythm. Systolic murmur heard throughout. ABDOMEN: Positive bowel sounds. Soft, nontender, nondistended. EXTREMITIES: +2 pretibial edema, +1 DPs. NEUROLOGIC: Alert and oriented x3. No gross focal neurologic deficits. DIAGNOSTIC STUDIES/LAB DATA: White count 7.3, hemoglobin 16.1, hematocrit 50, platelets 131. INR is 1.41. Sodium 143, potassium 3.8, chloride 104, bicarb 32 , BUN 36, creatinine 1.58, glucose 126, troponin is 0.04, CRP is 13. BNP is greater than 1300. Radiographic Data: Chest x-ray is unremarkable. No significant findings. EKG: Normal sinus rhythm with nonspecific ST changes. 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 1. Hypoglycemia. Assessment: I suspect with patient's bump in his BUN and creatinine that the Lantus was not excreted appropriately and with his minimal p.o. intake, this further exacerbated his hypoglycemia. Plan: We will check his glucose q.4 hours. We will hold his Lantus this evening. Anticipate if his renal function improves, this may improve his hypoglycemia issues, but would dramatically drop his Lantus at discharge. 2. Acute kidney injury. The patient with elevated BUN and creatinine. I suspect this is related to acute decompensated diastolic heart failure. His respiratory status seems to be at his baseline, but he has gained some weight and has some lower extremity edema. Plan: We will go ahead and give him 1 dose of Lasix and see how he responds, then repeat his labs in the morning. The daughter states he just had an echocardiogram in the past few months at [place]. We will request records and follow up with that. There is likely no indication of getting another echo and I recommend adjusting his diuretics at discharge. 3. Chronic obstructive lung disease/pulmonary hypertension. The patient is end - stage, likely hypoxic at baseline, unable to mentate and maintain normal reasonable function. I discussed hospice to them, stating he is eligible for hospice with end- stage lung disease with hypoxic respiratory failure. They did seem interested, but did not want to have anyone come and consult with them. The daughter states that she will call hospice care. Continue his inhaler regimen. I do not think he needs any steroids or any further treatment. 4. Chronic medical problems. We will resume his home medications as prescribed. His home med rec is not accurate, I am not sure what he is taking for his chronic itching. We will continue him on the hydroxyzine though and hold the Lantus as mentioned above. 5. FEN. Place the patient on a regular diet. 6. DVT prophylaxis: The patient scores high risk. Placed him on heparin subcu t.i.d. 7. Code status: The patient is a DNR/DNI. PATIENT TIME: Greater than 45 minutes spent doing the history and physical, more than half was spent in direct patient contact. [id number]/CPS #: [id number] MARTIN
[2018-07-14] MEDS: Heparin VIAL(*) 5000 UNITS/ML VIAL (FIVE THOUSAND) SUBCUT SCH ×3 (04:58→21:22)
[2018-07-14] MEDS ORDERED: Dextrose 50% Syringe 50 ML* 25 GM/50 ML SYRINGE IV PUSH PRN (06:21)
[2018-07-14 06:22] LABS: Hematocrit 47 % (42-52); Hemoglobin 15.1 g/dL (14.0-18.0); Mean Corpuscular HGB Conc 32 g/dL (31-36); Mean Corpuscular Hemoglobin 29 pg (27-31); Mean Corpuscular Volume 90 fL (80-94); Mean Platelet Volume 10.2 fL (7.4-10.4); Platelet Count 104 10^3/uL (150-450); Red Blood Count 5.18 10^6 /uL (4.18-5.48); Red Cell Distribution Width 18 % (10.5-15); White Blood Count 5.5 10^3/uL (3.5-10.8)
[2018-07-14 06:33] LABS: BUN/Creatinine Ratio 23.9 (8-20); Calcium 8.4 mg/dL (8.6-10.3); EGFR African American 57.6 (>60); EGFR Non-African American 47.6 (>60); Potassium 3.6 mmol/L (3.5-5.0)
[2018-07-14] MEDS: PTO: Umeclidin/Vilant 62.5 MDI 62.5/25 mcg 14 INH ELLIPTA DEVICE INH SCH (07:14)
[2018-07-14 07:32] LABS: ABS Lymphocytes 0.3 10^3/ul (1.0-4.8); ABS Monocytes 0.1 10^3/ul (0-0.8); ABS Neutrophils 5.1 10^3/ul (1.5-7.7); Eosinophil % 0.2 %; Lymphocyte % 4.8 %; Nucleated Red Blood Cells % 0.1
[2018-07-14] MEDS ORDERED: Insulin GLARGINE(*) 1 UNITS UNIT SUBCUT ONE (08:45)
[2018-07-14] MEDS ORDERED: Bumetanide TAB* 2 MG PO SCH (09:00)
[2018-07-14] MEDS: Pantoprazole TAB * 40 MG TAB PO SCH ×2 (09:21→20:12)
[2018-07-14] MEDS: Insulin LISPRO* 1 UNITS UNIT SUBCUT SCH ×3 (09:24→18:30)
[2018-07-14] MEDS: predniSONE TAB* 20 MG PO SCH (09:24)
[2018-07-14] MEDS: NFT: Multivitamins/Mins (NF) AREDS2 1 CAP CAP PO SCH (09:26)
[2018-07-14] MEDS: Timolol 0.5% OPTH.SOL* BTL LEFT EYE SCH (09:26)
--- NOTE | 2018-07-14 17:07 | PN ---
Subjective Date of Service: 07/14/18 Interval History: Patient awake, alert no acute events. He remains on high oxygen requirement. 10 Liters via NC. BG improved. Unable to wean off below 8 liters. He was started on prednisone and will reassess in am. Bumex 1 mg PO given while lasix on hold Past Medical History: Unchanged from Admission Objective Active Medications: Acetaminophen (Tylenol Tab*) 650 mg PO Q4H PRN PRN Reason: FEVER/PAIN Albuterol/Ipratropium (Duoneb (Albuterol 2.5 Mg/Ipratropium 0.5 Mg)) 1 neb INH [id number] AWAKE PRN PRN Reason: sob/wheexing Atorvastatin Calcium (Lipitor*) 80 mg PO QPM [facility] Bumetanide (Bumex Tab*) 1 mg PO DAILY [facility] Last Admin: 07/14/18 09:22 Dose: 1 mg Dextrose (D50w Syringe 50 Ml*) 12.5 gm IV PUSH .FOR FS < 60 - SS PRN PRN Reason: FS < 60 Heparin Sodium (Porcine) (Heparin Vial(*)) 5,000 units SUBCUT Q8HR [facility] Last Admin: 07/14/18 13:01 Dose: 5,000 units Hydroxyzine HCl (Atarax Tab*) 25 mg PO Q6H PRN PRN Reason: itching Insulin Human Lispro (Humalog*) 0 units SUBCUT AC [facility]; Protocol Last Admin: 07/14/18 13:01 Dose: 3 unit Multivitamins/Minerals (Preservision Areds 2) 1 cap PO QAM [facility] Last Admin: 07/14/18 09:26 Dose: Not Given Pantoprazole Sodium (Protonix Tab*) 40 mg PO BID [facility] Last Admin: 07/14/18 09:21 Dose: 40 mg Prednisone (Deltasone Tab*) 40 mg PO DAILY [facility] Last Admin: 07/14/18 09:24 Dose: 40 mg Timolol Maleate (Timoptic 0.5% Opth*) 1 drop LEFT EYE QAM [facility] Last Admin: 07/14/18 09:26 Dose: 1 drp Umeclidinium/Vilanterol (Anoro 62.5/25 Ellipta Device (Nf)) 1 inh INH DAILY [facility] Last Admin: 07/14/18 07:14 Dose: Not Given Vital Signs - 8 hr 07/14/18 07/14/18 07/14/18 13:04 13:06 13:10 O2 Sat by Pulse 78 89 90 Oximetry Oxygen Devices in Use Now: OxyMask Appearance: Awake, alert. no acute distress. Family not at bedside Eyes: No Scleral Icterus, - - EOMI Ears/Nose/Mouth/Throat: NL Teeth, Lips, Gums, Mucous Membranes Moist Neck: NL Appearance and Movements; NL JVP, Trachea Midline Respiratory: - - expiratory wheezing Cardiovascular: NL Sounds; No Murmurs; No JVD, - - + edema +1 B/L Abdominal: NL Sounds; No Tenderness; No Distention Extremities: - - + 1 Edema Skin: No Rash or Ulcers Neurological: Alert and Oriented x 3 Result Diagrams: 07/14/18 05:36 07/14/18 05:36 Assess/Plan/Problems-Billing Assessment: 83 year old male admitted for hypoglycemia and hypoxia with SOB most likely due to COPD exacerbations and CHF exacerbations - Patient Problems (1) COPD (chronic obstructive pulmonary disease) Current Visit: No Status: Acute Code(s): J44.9 - CHRONIC OBSTRUCTIVE PULMONARY DISEASE, UNSPECIFIED SNOMED Code(s): 62691252 Comment: - I suspect he has mild exacerbations - Continue Duoneb and Anoro - I added Prednisone 40 mg daily and I will add Doxycycline 100 mg po bid (2) Diabetes Current Visit: No Status: Acute Code(s): E11.9 - TYPE 2 DIABETES MELLITUS WITHOUT COMPLICATIONS SNOMED Code(s): 62537113 Comment: - Presented with hypoglycemia - Continue lantus (dose decrease to 20 units) and lispro SSI coverage with meals. (3) Diastolic CHF Current Visit: No Status: Acute Code(s): I50.30 - UNSPECIFIED DIASTOLIC ( CONGESTIVE) HEART FAILURE SNOMED Code(s): 052795176 Comment: - I will place him on bumex [address] lasix on hold for now (4) Hyperlipidemia Current Visit: No Status: Acute Code(s): E78.5 - HYPERLIPIDEMIA, UNSPECIFIED SNOMED Code(s): 97961151 Comment: - Continue atorvastatin 80 mg HS (5) DVT prophylaxis Current Visit: No Status: Acute Code(s): VYC3193 - SNOMED Code(s): 081876066 Comment: - Heparin 5000 SQ Q 8hrs
[2018-07-14] MEDS: Atorvastatin* 80 MG TAB PO SCH (18:29)
[2018-07-14] MEDS: Potassium Chlor TAB* 20 MEQ TAB.ER PO SCH (20:12)
[2018-07-14] MEDS: Bumetanide TAB* 1 MG PO SCH (20:12)
[2018-07-14] MEDS: DOXYcycline CAP(*) 100 MG PO SCH (20:12)
[2018-07-15] MEDS: Heparin VIAL(*) 5000 UNITS/ML VIAL (FIVE THOUSAND) SUBCUT SCH ×3 (05:51→22:00)
[2018-07-15] MEDS: DOXYcycline CAP(*) 100 MG PO SCH ×2 (09:31→21:57)
[2018-07-15] MEDS: Timolol 0.5% OPTH.SOL* BTL LEFT EYE SCH (09:31)
[2018-07-15] MEDS: Insulin LISPRO* 1 UNITS UNIT SUBCUT SCH ×3 (09:31→18:20)
[2018-07-15] MEDS: predniSONE TAB* 20 MG PO SCH (09:31)
[2018-07-15] MEDS: Pantoprazole TAB * 40 MG TAB PO SCH ×2 (09:31→21:57)
[2018-07-15] MEDS: Potassium Chlor TAB* 20 MEQ TAB.ER PO SCH ×2 (09:31→21:57)
[2018-07-15] MEDS: Bumetanide TAB* 1 MG PO SCH ×2 (09:31→21:56)
[2018-07-15] MEDS: NFT: Multivitamins/Mins (NF) AREDS2 1 CAP CAP PO SCH (09:35)
[2018-07-15] MEDS: PTO: Umeclidin/Vilant 62.5 MDI 62.5/25 mcg 14 INH ELLIPTA DEVICE INH SCH (09:35)
--- NOTE | 2018-07-15 17:58 | PN ---
Subjective Date of Service: 07/15/18 Interval History: Patient seen today, doing well. but remains on high oxygen requirement. He is on 10 Liters and has low oxygen saturations. Past Medical History: Unchanged from Admission Objective Active Medications: Acetaminophen (Tylenol Tab*) 650 mg PO Q4H PRN PRN Reason: FEVER/PAIN Albuterol/Ipratropium (Duoneb (Albuterol 2.5 Mg/Ipratropium 0.5 Mg)) 1 neb INH [id number] AWAKE PRN PRN Reason: sob/wheexing Atorvastatin Calcium (Lipitor*) 80 mg PO QPM [facility] Last Admin: 07/14/18 18:29 Dose: 80 mg Bumetanide (Bumex Tab*) 1 mg PO BID [facility] Last Admin: 07/15/18 09:31 Dose: 1 mg Dextrose (D50w Syringe 50 Ml*) 12.5 gm IV PUSH .FOR FS < 60 - SS PRN PRN Reason: FS < 60 Doxycycline Hyclate (Vibramycin Cap(*)) 100 mg PO BID [facility] Last Admin: 07/15/18 09:31 Dose: 100 mg Heparin Sodium (Porcine) (Heparin Vial(*)) 5,000 units SUBCUT Q8HR [facility] Last Admin: 07/15/18 13:19 Dose: 5,000 units Hydroxyzine HCl (Atarax Tab*) 25 mg PO Q6H PRN PRN Reason: itching Insulin Human Lispro (Humalog*) 0 units SUBCUT AC [facility]; Protocol Last Admin: 07/15/18 13:19 Dose: 3 unit Multivitamins/Minerals (Preservision Areds 2) 1 cap PO QAM [facility] Last Admin: 07/15/18 09:35 Dose: Not Given Pantoprazole Sodium (Protonix Tab*) 40 mg PO BID [facility] Last Admin: 07/15/18 09:31 Dose: 40 mg Potassium Chloride (Klor Con Er Tab*) 20 meq PO BID [facility] Last Admin: 07/15/18 09:31 Dose: 20 meq Prednisone (Deltasone Tab*) 40 mg PO DAILY [facility] Last Admin: 07/15/18 09:31 Dose: 40 mg Timolol Maleate (Timoptic 0.5% Opth*) 1 drop LEFT EYE QAM [facility] Last Admin: 07/15/18 09:31 Dose: 1 drp Umeclidinium/Vilanterol (Anoro 62.5/25 Ellipta Device (Nf)) 1 inh INH DAILY [facility] Last Admin: 07/15/18 09:35 Dose: Not Given Vital Signs - 8 hr 07/15/18 14:25 Temperature 96.7 F Pulse Rate 65 Respiratory 20 Rate Blood Pressure 114/53 (mmHg) O2 Sat by Pulse 94 Oximetry Oxygen Devices in Use Now: OxyMask Appearance: awake, alert Eyes: No Scleral Icterus Ears/Nose/Mouth/Throat: NL Teeth, Lips, Gums Neck: NL Appearance and Movements; NL JVP, Trachea Midline Respiratory: - - expiratory wheezing Cardiovascular: NL Sounds; No Murmurs; No JVD, No Edema Abdominal: NL Sounds; No Tenderness; No Distention Extremities: No Edema Skin: No Rash or Ulcers Neurological: Alert and Oriented x 3 Result Diagrams: 07/14/18 05:36 07/14/18 05:36 Microbiology and Other Data: Microbiology 07/13/18 21:33 Aerobic Blood Culture - Preliminary Blood Venous No Growth Day 1 Anaerobic Blood Culture - Preliminary No Growth Day 1 07/13/18 21:33 Aerobic Blood Culture - Preliminary Blood Venous No Growth Day 1 Anaerobic Blood Culture - Preliminary No Growth Day 1 Assess/Plan/Problems-Billing Assessment: 83 year old male admitted for hypoglycemia and hypoxia with SOB most likely due to COPD exacerbations and CHF exacerbations - Patient Problems (1) COPD (chronic obstructive pulmonary disease) Current Visit: No Status: Acute Code(s): J44.9 - CHRONIC OBSTRUCTIVE PULMONARY DISEASE, UNSPECIFIED SNOMED Code(s): 78667603 Comment: - I suspect he has mild exacerbations - Continue Duoneb and Anoro - I added Prednisone 40 mg daily and I did add Doxycycline 100 mg po bid - He is not improving accordingly. I will maintain on current treatment. check ABG in am to see if we are getting accurate pulse oximetry reading. (2) Diabetes Current Visit: No Status: Acute Code(s): E11.9 - TYPE 2 DIABETES MELLITUS WITHOUT COMPLICATIONS SNOMED Code(s): 66984982 Comment: - Presented with hypoglycemia - Continue lantus (dose decrease to 20 units) and lispro SSI coverage with meals. (3) Diastolic CHF Current Visit: No Status: Acute Code(s): I50.30 - UNSPECIFIED DIASTOLIC ( CONGESTIVE) HEART FAILURE SNOMED Code(s): 600833033 Comment: - I did place him on bumex [address] lasix on hold for now - I will check Echo as I do not have echo baseline to compare. (4) Hyperlipidemia Current Visit: No Status: Acute Code(s): E78.5 - HYPERLIPIDEMIA, UNSPECIFIED SNOMED Code(s): 34993410 Comment: - Continue atorvastatin 80 mg HS (5) DVT prophylaxis Current Visit: No Status: Acute Code(s): UWT7731 - SNOMED Code(s): 859679467 Comment: - Heparin 5000 SQ Q 8hrs Status and Disposition: Spoke to family in details and they are not ready for hospice or comfort care. They do want to provide full treatment as necessary with the exception of cardiopulmonary resuscitation. they confirmed the DNR but wishes to provide full course treatment
[2018-07-15] MEDS: Atorvastatin* 80 MG TAB PO SCH (18:20)
[2018-07-16] MEDS: Heparin VIAL(*) 5000 UNITS/ML VIAL (FIVE THOUSAND) SUBCUT SCH ×3 (05:08→21:01)
[2018-07-16 06:43] LABS: ABS Lymphocytes 0.8 10^3/ul (1.0-4.8); ABS Monocytes 0.7 10^3/ul (0-0.8); ABS Neutrophils 8.4 10^3/ul (1.5-7.7); Eosinophil % 0.2 %; Hematocrit 46 % (42-52); Hemoglobin 14.7 g/dL (14.0-18.0); Lymphocyte % 7.8 %; Mean Corpuscular HGB Conc 32 g/dL (31-36); Mean Corpuscular Hemoglobin 29 pg (27-31); Mean Corpuscular Volume 91 fL (80-94); Mean Platelet Volume 10.1 fL (7.4-10.4); Platelet Count 117 10^3/uL (150-450); Red Blood Count 5.07 10^6 /uL (4.18-5.48); Red Cell Distribution Width 18 % (10.5-15); White Blood Count 9.9 10^3/uL (3.5-10.8)
[2018-07-16 07:02] LABS: BUN/Creatinine Ratio 23.4 (8-20); Calcium 7.9 mg/dL (8.6-10.3); EGFR African American 64.9 (>60); EGFR Non-African American 53.7 (>60); Magnesium 1.8 mg/dL (1.9-2.7); Phosphorus 2.8 mg/dL (2.5-5.0); Potassium 3.3 mmol/L (3.5-5.0)
[2018-07-16] MEDS: PTO: Umeclidin/Vilant 62.5 MDI 62.5/25 mcg 14 INH ELLIPTA DEVICE INH SCH (07:03)
[2018-07-16] MEDS: Insulin LISPRO* 1 UNITS UNIT SUBCUT SCH ×3 (09:53→18:50)
[2018-07-16] MEDS: Bumetanide TAB* 1 MG PO SCH (09:55)
[2018-07-16] MEDS: Pantoprazole TAB * 40 MG TAB PO SCH ×2 (09:56→21:01)
[2018-07-16] MEDS: predniSONE TAB* 20 MG PO SCH (09:56)
[2018-07-16] MEDS: DOXYcycline CAP(*) 100 MG PO SCH ×2 (09:57→21:03)
[2018-07-16] MEDS: NFT: Multivitamins/Mins (NF) AREDS2 1 CAP CAP PO SCH (09:57)
[2018-07-16] MEDS: Potassium Chlor TAB* 20 MEQ TAB.ER PO SCH ×2 (09:57→21:01)
[2018-07-16] MEDS: Timolol 0.5% OPTH.SOL* BTL LEFT EYE SCH (09:57)
[2018-07-16] MEDS ORDERED: Dextrose 50% Syringe 50 ML* 25 GM/50 ML SYRINGE ONE (10:35)
[2018-07-16 11:36] LABS: Hematocrit 50 % (42-52); Hemoglobin 15.6 g/dL (14.0-18.0); Mean Corpuscular HGB Conc 32 g/dL (31-36); Mean Corpuscular Hemoglobin 29 pg (27-31); Mean Corpuscular Volume 91 fL (80-94); Mean Platelet Volume 9.9 fL (7.4-10.4); Platelet Count 140 10^3/uL (150-450); Red Blood Count 5.44 10^6 /uL (4.18-5.48); Red Cell Distribution Width 18 % (10.5-15); White Blood Count 13.1 10^3/uL (3.5-10.8)
[2018-07-16 12:00] LABS: ABS Eosinophils 0.1 10^3/ul (0-0.6); ABS Neutrophils 11.1 10^3/ul (1.5-7.7); ABS Neutrophils 11.3 10^3/ul (1.5-7.7)
[2018-07-16 12:02] LABS: Albumin 3.6 g/dL (3.2-5.2); Albumin/Globulin Ratio 1.2 (1-3); BUN/Creatinine Ratio 20.7 (8-20); Calcium 8.1 mg/dL (8.6-10.3); EGFR African American 54.1 (>60); EGFR Non-African American 44.7 (>60); Globulin 2.9 g/dL (2-4); Magnesium 1.9 mg/dL (1.9-2.7); Phosphorus 2.9 mg/dL (2.5-5.0); Potassium 3.3 mmol/L (3.5-5.0); Total Bilirubin 1.4 mg/dL (0.2-1.0); Total Protein 6.5 g/dL (6.4-8.9)
[2018-07-16 12:03] LABS: Troponin I 0.03 ng/mL (<0.04)
[2018-07-16] MEDS ORDERED: predniSONE TAB* 50 MG PO ONE ×2 (13:00→18:00)
[2018-07-16] MEDS ORDERED: Furosemide IV* 10 MG/ML VIAL (40 MG) ONE (13:20)
[2018-07-16] MEDS: Furosemide IV* 10 MG/ML VIAL (40 MG) IV SCH ×2 (13:21→22:49)
--- NOTE | 2018-07-16 15:48 | PN ---
Subjective Date of Service: 07/16/18 Interval History: Patient seen today during " CAT CALL " on the floor. His pulse oximetry dropped to low 60's unable to be aroused. found cyanotic but with pulse, diaphoretic. tele strip reviewed during the event it was sinus rhythm and 2 sec pause. Otherwise unremarkable. BG was in 170's. He was placed on 100% Fio2 we were not abble to bring his oxygen above 88%, Hence patient transferred to ICU and placed on Vapotherm. Family contacted and informed of the events and they did request full treatment but they did not want intubation. I spoke to the patient's Past Medical History: Unchanged from Admission Objective Active Medications: Acetaminophen (Tylenol Tab*) 650 mg PO Q4H PRN PRN Reason: FEVER/PAIN Albuterol/Ipratropium (Duoneb (Albuterol 2.5 Mg/Ipratropium 0.5 Mg)) 1 neb INH [id number] AWAKE PRN PRN Reason: sob/wheexing Atorvastatin Calcium (Lipitor*) 80 mg PO QPM [facility] Last Admin: 07/15/18 18:20 Dose: 80 mg Dextrose (D50w Syringe 50 Ml*) 12.5 gm IV PUSH .FOR FS < 60 - SS PRN PRN Reason: FS < 60 Diphenhydramine HCl (Benadryl Po*) 50 mg PO ONCE ONE Stop: 07/17/18 01:01 Doxycycline Hyclate (Vibramycin Cap(*)) 100 mg PO BID [facility] Last Admin: 07/16/18 09:57 Dose: 100 mg Furosemide (Lasix Iv*) 40 mg IV BID [facility] Last Admin: 07/16/18 13:21 Dose: 40 mg Heparin Sodium (Porcine) (Heparin Vial(*)) 5,000 units SUBCUT Q8HR [facility] Last Admin: 07/16/18 13:21 Dose: 5,000 units Hydroxyzine HCl (Atarax Tab*) 25 mg PO Q6H PRN PRN Reason: itching Insulin Human Lispro (Humalog*) 0 units SUBCUT AC [facility]; Protocol Last Admin: 07/16/18 13:11 Dose: Not Given Multivitamins/Minerals (Preservision Areds 2) 1 cap PO QAM [facility] Last Admin: 07/16/18 09:57 Dose: Not Given Pantoprazole Sodium (Protonix Tab*) 40 mg PO BID [facility] Last Admin: 07/16/18 09:56 Dose: 40 mg Potassium Chloride (Klor Con Er Tab*) 20 meq PO BID [facility] Last Admin: 07/16/18 09:57 Dose: 20 meq Prednisone (Deltasone Tab*) 40 mg PO DAILY [facility] Last Admin: 07/16/18 09:56 Dose: 40 mg Prednisone (Deltasone Tab*) 50 mg PO ONCE ONE Stop: 07/16/18 18:01 Prednisone (Deltasone Tab*) 50 mg PO ONCE ONE Stop: 07/17/18 01:01 Timolol Maleate (Timoptic 0.5% Opth*) 1 drop LEFT EYE QAM [facility] Last Admin: 07/16/18 09:57 Dose: 1 drp Umeclidinium/Vilanterol (Anoro 62.5/25 Ellipta Device (Nf)) 1 inh INH DAILY [facility] Last Admin: 07/16/18 07:03 Dose: Not Given Vital Signs - 8 hr 07/16/18 07/16/18 07/16/18 07:48 08:00 10:35 Temperature 97.8 F Pulse Rate 65 Respiratory 19 20 Rate Blood Pressure 142/86 92/60 (mmHg) O2 Sat by Pulse 99 Oximetry 07/16/18 10:42 Temperature 96.8 F Pulse Rate 59 Respiratory Rate Blood Pressure 102/64 (mmHg) O2 Sat by Pulse 82 Oximetry Oxygen Devices in Use Now: OxyMask Appearance: arousable, dyspneic. Eyes: No Scleral Icterus, - - EOMI Ears/Nose/Mouth/Throat: NL Teeth, Lips, Gums, - - dry oral mucosa. cyanotic Neck: Trachea Midline Respiratory: Symmetrical Chest Expansion and Respiratory Effort, - - poor airflow Cardiovascular: - - edema Abdominal: NL Sounds; No Tenderness; No Distention Result Diagrams: 07/16/18 11:29 07/16/18 11:29 Microbiology and Other Data: Microbiology 07/13/18 21:33 Aerobic Blood Culture - Preliminary Blood Venous No Growth Day 1 Anaerobic Blood Culture - Preliminary No Growth Day 1 07/13/18 21:33 Aerobic Blood Culture - Preliminary Blood Venous No Growth Day 1 Anaerobic Blood Culture - Preliminary No Growth Day 1 Assess/Plan/Problems-Billing Assessment: 83 year old male admitted for hypoglycemia and hypoxia with SOB most likely due to COPD exacerbations and CHF exacerbations - Patient Problems (1) Acute respiratory failure with hypoxia Current Visit: Yes Status: Acute Code(s): J96.01 - ACUTE RESPIRATORY FAILURE WITH HYPOXIA SNOMED Code(s): 26695465 Comment: - Initially his treatment was targetted for COPD and CHF exacerbations. - He does have poor lung disease (on high oxygen at home as baseline 6-8L) - Today hospital day # 3 and he has not improved on prednisone, doxy, neb and increase dose of diuretics. Given his CAT call this morning (07/16/18), I became more concerned that he may have had PE. I will pretreat his IV contrast allergy with benadyl and prednisone as per protocol and will send for CTA chest afterward. (He was covered with heparin for prophylaxis since admission). Meanwhile, I will change his diruetic to IV and will need to place him on IV solumedrol (2) COPD (chronic obstructive pulmonary disease) Current Visit: No Status: Acute Code(s): J44.9 - CHRONIC OBSTRUCTIVE PULMONARY DISEASE, UNSPECIFIED SNOMED Code(s): 36369182 Comment: - I suspect he has mild exacerbations , Continue Duoneb and Anoro - I did add Prednisone 40 mg daily and I did add Doxycycline 100 mg po bid but he has not improved and he continue to decline espescially this morning in the setting of his acute hypoxia, - Concerned for PE. Allergic to IV dye will pre treat and order CTA post Allergy contrast treatment (3) Diabetes Current Visit: No Status: Acute Code(s): E11.9 - TYPE 2 DIABETES MELLITUS WITHOUT COMPLICATIONS SNOMED Code(s): 03436828 Comment: - Presented with hypoglycemia - Continue lantus (dose decrease to 20 units) and lispro SSI coverage with meals. (4) Diastolic CHF Current Visit: No Status: Acute Code(s): I50.30 - UNSPECIFIED DIASTOLIC ( CONGESTIVE) HEART FAILURE SNOMED Code(s): 891989534 Comment: - I did place him on bumex 1 mg bid and I placed hos home PO lasix on hold - I did order Echo awaiting test to be done - Given his acute respiratory decline and the CAT CALL, I will swith to IV lasix for now and d/c his po diuretics. (5) Hyperlipidemia Current Visit: No Status: Acute Code(s): E78.5 - HYPERLIPIDEMIA, UNSPECIFIED SNOMED Code(s): 30136136 Comment: - Continue atorvastatin 80 mg HS (6) DVT prophylaxis Current Visit: No Status: Acute Code(s): XSD2887 - SNOMED Code(s): 932662750 Comment: - Heparin 5000 SQ Q 8hrs Status and Disposition: Spoke to family in details and they are not ready for hospice or comfort care. They do want to provide full treatment as necessary with the exception of cardiopulmonary resuscitation. they confirmed the DNR but wishes to provide full course treatment
[2018-07-16] MEDS: Atorvastatin* 80 MG TAB PO SCH (19:08)
[2018-07-17] MEDS ORDERED: diPHENhydraMINE PO* 50 MG PO ONE (01:00)
[2018-07-17] MEDS ORDERED: predniSONE TAB* 50 MG PO ONE (01:00)
[2018-07-17] MEDS ORDERED: Iodixanol* (CONTRAST) 320 MG/ML 100 ML SDV IV ONE (01:42)
[2018-07-17] MEDS: Heparin VIAL(*) 5000 UNITS/ML VIAL (FIVE THOUSAND) SUBCUT SCH ×3 (05:28→21:17)
[2018-07-17 05:40] LABS: ABS Lymphocytes 0.6 10^3/ul (1.0-4.8); ABS Monocytes 0.2 10^3/ul (0-0.8); ABS Neutrophils 7.2 10^3/ul (1.5-7.7); Hematocrit 49 % (42-52); Hemoglobin 15.7 g/dL (14.0-18.0); Lymphocyte % 7.5 %; Mean Corpuscular HGB Conc 32 g/dL (31-36); Mean Corpuscular Hemoglobin 29 pg (27-31); Mean Corpuscular Volume 91 fL (80-94); Mean Platelet Volume 9.9 fL (7.4-10.4); Nucleated Red Blood Cells % 0.2; Platelet Count 109 10^3/uL (150-450); Red Blood Count 5.43 10^6 /uL (4.18-5.48); Red Cell Distribution Width 18 % (10.5-15)
[2018-07-17 06:02] LABS: BUN/Creatinine Ratio 22.4 (8-20); Calcium 8.1 mg/dL (8.6-10.3); EGFR African American 57.1 (>60); EGFR Non-African American 47.2 (>60); Magnesium 1.7 mg/dL (1.9-2.7); Potassium 3.4 mmol/L (3.5-5.0)
[2018-07-17] MEDS: PTO: Umeclidin/Vilant 62.5 MDI 62.5/25 mcg 14 INH ELLIPTA DEVICE INH SCH (07:47)
[2018-07-17] MEDS ORDERED: methylPREDNISolone SOD 40 MG* 1 ML VIAL IV SCH (09:00)
--- NOTE | 2018-07-17 09:21 | PN ---
Progress Note - Progress Note Date of Service: 07/17/18 - Pulmonary note Note: Pt seen and examined at bedside. Pt known to me from out pt evaluation. Pt with h/o severe pulm fibrosis, hypoxic resp failure. Pt had progressively worsening course with progression of hypoxic resp failure. Pt has been requiring high flow and BiPAP. Pt is lethargic, non-communicative. Is on BiPAP, in mild distress Active Medications Generic Name Dose Route Start Last Admin Trade Name Freq PRN Reason Stop Dose Admin Acetaminophen 650 mg 07/14/18 00:14 Tylenol Tab* PO Q4H PRN FEVER/PAIN Albuterol/Ipratropium 1 neb 07/14/18 00:14 Duoneb (Albuterol 2.5 Mg/Ipratropium 0.5 Mg) INH [id number] AWAKE PRN sob/wheexing Atorvastatin Calcium 80 mg 07/14/18 18:00 07/16/18 19:08 Lipitor* PO 80 mg QPM [facility] Administration Dextrose 12.5 gm 07/14/18 06:21 D50w Syringe 50 Ml* IV PUSH .FOR FS < 60 - SS PRN FS < 60 Doxycycline Hyclate 100 mg 07/14/18 21:00 07/16/18 21:03 Vibramycin Cap(*) PO 100 mg BID [facility] Administration Furosemide 40 mg 07/16/18 13:01 07/16/18 22:49 Lasix Iv* IV 40 mg BID [facility] Administration Heparin Sodium (Porcine) 5,000 units 07/14/18 06:00 07/17/18 05:28 Heparin Vial(*) SUBCUT 5,000 units Q8HR [facility] Administration Hydroxyzine HCl 25 mg 07/14/18 00:11 Atarax Tab* PO Q6H PRN itching Insulin Human Lispro 0 units 07/14/18 07:30 07/16/18 18:50 Humalog* SUBCUT Not Given AC REPLACED BY [facility] Protocol Methylprednisolone Sodium Succinate 40 mg 07/17/18 09:00 Solu-Medrol 40 Mg IV Q6H REPLACED BY [facility] Multivitamins/Minerals 1 cap 07/14/18 09:00 07/16/18 09:57 Preservision Areds 2 PO Not Given QAM [facility] Pantoprazole Sodium 40 mg 07/14/18 09:00 07/16/18 21:01 Protonix Tab* PO 40 mg BID [facility] Administration Potassium Chloride 20 meq 07/14/18 21:00 07/16/18 21:01 Klor Con Er Tab* PO 20 meq BID [facility] Administration Prednisone 40 mg 07/14/18 09:00 07/16/18 09:56 Deltasone Tab* PO 40 mg DAILY [facility] Administration Timolol Maleate 1 drop 07/14/18 09:00 07/16/18 09:57 Timoptic 0.5% Opth* LEFT EYE 1 drp QAM [facility] Administration Umeclidinium/Vilanterol 1 inh 07/14/18 09:00 07/17/18 07:47 Anoro 62.5/25 Ellipta Device (Nf) INH Not Given DAILY [facility] Vital Signs Temp Pulse Resp BP Pulse Ox 98.4 F 64 16 154/91 94 07/17/18 08:00 07/17/18 07:00 07/17/18 07:00 07/17/18 07:00 07/17/18 07:00 O/E: Pt in mild distress, using accessory muscles of respiration HEENT: Pupils reactive Lungs: Diminished air entry b/l, scattered rhonchi CVS: S1, S2+, irregular Abd: Soft, BS+ Neuro: Lethargic Laboratory Results - last 24 hr 07/16/18 07/16/18 07/16/18 10:34 10:40 11:29 WBC RBC Hgb Hct MCV MCH MCHC RDW Plt Count MPV Neut % (Auto) Lymph % (Auto) Gar[place] % (Auto) Eos % (Auto) Baso % (Auto) Absolute Neuts (auto) Absolute Lymphs (auto) Absolute Monos (auto) Absolute Eos (auto) Absolute Basos (auto) Absolute Nucleated RBC Neutrophils % Lymphocytes % Monocytes % Eosinophils % Basophils % Nucleated RBC % Abs Neuts (Manual) Abs Lymphs (Manual) Abs Monocytes (Manual) Absolute Eos (Manual) Abs Basophils (Manual) Normal RBC Morphology D-Dimer, Quantitative Patient Temperature Not Reportable ABG pH 7.41 ABG pH (Temp Correct) Not Reportable ABG pCO2 31 L ABG pCO2 (Temp Corrct Not Reportable ABG pO2 51 L* ABG pO2 (Temp Correct Not Reportable ABG HCO3 21.4 ABG O2 Saturation 83.5 L ABG Base Excess -4.0 L Respiration Rate Not Reportable O2 Delivery Device oxymask Ventilator Type Not Reportable Vent Mode Not Reportable FiO2 15 Inspiratory Time Not Reportable PEEP Not Reportable Pressure Support Not Reportable Pressure Control Not Reportable EPAP Not Reportable IPAP Not Reportable BiPAP Not Reportable Sodium 140 Potassium 3.3 L Chloride 100 L Carbon Dioxide 33 H Anion Gap 7 BUN 31 H Creatinine 1.50 H Est GFR ( Amer) 54.1 Est GFR (Non-Af Amer) 44.7 BUN/Creatinine Ratio 20.7 H Glucose 148 H POC Glucose (mg/dL) 170 H Calcium 8.1 L Phosphorus 2.9 Magnesium 1.9 Total Bilirubin 1.40 H Direct Bilirubin 0.40 H Indirect Bilirubin 1.0 AST 35 ALT 28 Alkaline Phosphatase 113 H Troponin I 0.03 Total Protein 6.5 Albumin 3.6 Globulin 2.9 Albumin/Globulin Ratio 1.2 07/16/18 07/16/18 07/16/18 11:29 11:29 17:32 WBC 13.1 H RBC 5.44 Hgb 15.6 Hct 50 MCV 91 MCH 29 MCHC 32 RDW 18 H Plt Count 140 L MPV 9.9 Neut % (Auto) Not Reportable Lymph % (Auto) Not Reportable Garland % (Auto) Not Reportable Eos % (Auto) Not Reportable Baso % (Auto) Not Reportable Absolute Neuts (auto) 11.1 H Absolute Lymphs (auto) Not Reportable Absolute Monos (auto) Not Reportable Absolute Eos (auto) Not Reportable Absolute Basos (auto) Not Reportable Absolute Nucleated RBC Not Reportable Neutrophils % 86.0 Lymphocytes % 8.0 Monocytes % 5.0 Eosinophils % 1.0 Basophils % 0.0 Nucleated RBC % Not Reportable Abs Neuts (Manual) 11.3 H Abs Lymphs (Manual) 1.0 Abs Monocytes (Manual) 0.7 Absolute Eos (Manual) 0.1 Abs Basophils (Manual) 0.0 Normal RBC Morphology Normal D-Dimer, Quantitative 288 H Patient Temperature ABG pH ABG pH (Temp Correct) ABG pCO2 ABG pCO2 (Temp Corrct ABG pO2 ABG pO2 (Temp Correct ABG HCO3 ABG O2 Saturation ABG Base Excess Respiration Rate O2 Delivery Device Ventilator Type Vent Mode FiO2 Inspiratory Time PEEP Pressure Support Pressure Control EPAP IPAP BiPAP Sodium Potassium Chloride Carbon Dioxide Anion Gap BUN Creatinine Est GFR ( Amer) Est GFR (Non-Af Amer) BUN/Creatinine Ratio Glucose POC Glucose (mg/dL) 160 H Calcium Phosphorus Magnesium Total Bilirubin Direct Bilirubin Indirect Bilirubin AST ALT Alkaline Phosphatase Troponin I Total Protein Albumin Globulin Albumin/Globulin Ratio 07/16/18 07/17/18 07/17/18 22:57 05:26 05:26 WBC 8.0 RBC 5.43 Hgb 15.7 Hct 49 MCV 91 MCH 29 MCHC 32 RDW 18 H Plt Count 109 L MPV 9.9 Neut % (Auto) 89.5 Lymph % (Auto) 7.5 Garland % (Auto) 2.8 Eos % (Auto) 0.0 Baso % (Auto) 0.2 Absolute Neuts (auto) 7.2 Absolute Lymphs (auto) 0.6 L Absolute Monos (auto) 0.2 Absolute Eos (auto) 0.0 Absolute Basos (auto) 0.0 Absolute Nucleated RBC 0.0 Neutrophils % Lymphocytes % Monocytes % Eosinophils % Basophils % Nucleated RBC % 0.2 Abs Neuts (Manual) Abs Lymphs (Manual) Abs Monocytes (Manual) Absolute Eos (Manual) Abs Basophils (Manual) Normal RBC Morphology D-Dimer, Quantitative Patient Temperature ABG pH ABG pH (Temp Correct) ABG pCO2 ABG pCO2 (Temp Corrct ABG pO2 ABG pO2 (Temp Correct ABG HCO3 ABG O2 Saturation ABG Base Excess Respiration Rate O2 Delivery Device Ventilator Type Vent Mode FiO2 Inspiratory Time PEEP Pressure Support Pressure Control EPAP IPAP BiPAP Sodium 141 Potassium 3.4 L Chloride 99 L Carbon Dioxide 31 Anion Gap 11 BUN 32 H Creatinine 1.43 H Est GFR ( Amer) 57.1 Est GFR (Non-Af Amer) 47.2 BUN/Creatinine Ratio 22.4 H Glucose 174 H POC Glucose (mg/dL) 158 H Calcium 8.1 L Phosphorus 4.0 Magnesium 1.7 L Total Bilirubin Direct Bilirubin Indirect Bilirubin AST ALT Alkaline Phosphatase Troponin I Total Protein Albumin Globulin Albumin/Globulin Ratio I/R: 83 y o m with severe pulm fibrosis and hypoxic resp failure Pt with progression of pulm fibrosis with possible acute exacerbation Hypoxic resp failure is worsening Pt in resp distress inspite of BiPAP Discussed with family at bedside. Family would like comfort measures Morphine prn ordered for comfort All meds and invasive measures were d/rajinder Will switch to vapotherm D/w bedside RN
[2018-07-17] MEDS: Potassium Chlor TAB* 20 MEQ TAB.ER PO SCH ×2 (10:04→20:10)
[2018-07-17] MEDS: Pantoprazole TAB * 40 MG TAB PO SCH ×2 (10:04→20:10)
[2018-07-17] MEDS: DOXYcycline CAP(*) 100 MG PO SCH ×2 (10:05→20:11)
[2018-07-17] MEDS: Timolol 0.5% OPTH.SOL* BTL LEFT EYE SCH (10:05)
[2018-07-17] MEDS ORDERED: Magnesium Sulfate 1 GM IV* 1 GM/100 ML BAG IV ONE (10:07)
[2018-07-17] MEDS ORDERED: Potassium Chlor TAB* 10 MEQ TAB.ER PO ONE (10:08)
--- NOTE | 2018-07-17 10:13 | PN ---
Subjective Date of Service: 07/17/18 Interval History: Pt feels better. Feels hungry. Denies cough, wants to go home. Past Medical History: Unchanged from Admission Objective Active Medications: Acetaminophen (Tylenol Tab*) 650 mg PO Q4H PRN PRN Reason: FEVER/PAIN Albuterol/Ipratropium (Duoneb (Albuterol 2.5 Mg/Ipratropium 0.5 Mg)) 1 neb INH [id number] AWAKE PRN PRN Reason: sob/wheexing Atorvastatin Calcium (Lipitor*) 80 mg PO QPM [facility] Last Admin: 07/16/18 19:08 Dose: 80 mg Dextrose (D50w Syringe 50 Ml*) 12.5 gm IV PUSH .FOR FS < 60 - SS PRN PRN Reason: FS < 60 Doxycycline Hyclate (Vibramycin Cap(*)) 100 mg PO BID [facility] Last Admin: 07/17/18 10:05 Dose: 100 mg Heparin Sodium (Porcine) (Heparin Vial(*)) 5,000 units SUBCUT Q8HR [facility] Last Admin: 07/17/18 05:28 Dose: 5,000 units Hydroxyzine HCl (Atarax Tab*) 25 mg PO Q6H PRN PRN Reason: itching Magnesium Sulfate/Dextrose (Magnesium Sulfate 1 Gm Iv*) 1 gm in 100 mls @ 200 mls/hr IV ONCE ONE Stop: 07/17/18 10:36 Insulin Human Lispro (Humalog*) 0 units SUBCUT AC [facility]; Protocol Last Admin: 07/16/18 18:50 Dose: Not Given Magnesium Oxide (Magox 400 Tab*) 400 mg PO DAILY [facility] Methylprednisolone Sodium Succinate (Solu-Medrol 40 Mg) 40 mg IV Q6H [facility] Last Admin: 07/17/18 10:05 Dose: 40 mg Multivitamins/Minerals (Preservision Areds 2) 1 cap PO QAM [facility] Last Admin: 07/16/18 09:57 Dose: Not Given Pantoprazole Sodium (Protonix Tab*) 40 mg PO BID [facility] Last Admin: 07/17/18 10:04 Dose: 40 mg Potassium Chloride (Klor Con Er Tab*) 20 meq PO BID [facility] Last Admin: 07/17/18 10:04 Dose: 20 meq Potassium Chloride (Klor Con Er Tab*) 20 meq PO ONCE ONE Stop: 07/17/18 10:09 Timolol Maleate (Timoptic 0.5% Opth*) 1 drop LEFT EYE QAM [facility] Last Admin: 07/17/18 10:05 Dose: 1 drp Umeclidinium/Vilanterol (Anoro 62.5/25 Ellipta Device (Nf)) 1 inh INH DAILY [facility] Last Admin: 07/17/18 07:47 Dose: Not Given Vital Signs - 8 hr 07/17/18 07/17/18 07/17/18 02:30 02:45 03:00 Temperature Pulse Rate 68 69 74 Respiratory 13 15 23 Rate Blood Pressure 151/91 151/87 (mmHg) O2 Sat by Pulse 98 98 90 Oximetry 07/17/18 07/17/18 07/17/18 03:10 03:15 03:30 Temperature Pulse Rate 69 70 66 Respiratory 15 15 14 Rate Blood Pressure 156/91 148/86 156/89 (mmHg) O2 Sat by Pulse 96 95 94 Oximetry 07/17/18 07/17/18 07/17/18 03:45 04:00 04:15 Temperature Pulse Rate 64 69 70 Respiratory 14 17 12 Rate Blood Pressure 153/88 150/89 161/88 (mmHg) O2 Sat by Pulse 96 93 96 Oximetry 07/17/18 07/17/18 07/17/18 04:30 04:45 04:49 Temperature Pulse Rate 65 69 Respiratory 19 13 14 Rate Blood Pressure 157/84 152/88 (mmHg) O2 Sat by Pulse 95 95 Oximetry 07/17/18 07/17/18 07/17/18 05:00 05:02 05:15 Temperature Pulse Rate 80 78 67 Respiratory 17 19 17 Rate Blood Pressure 140/99 158/90 (mmHg) O2 Sat by Pulse 92 89 97 Oximetry 07/17/18 07/17/18 07/17/18 05:30 05:45 06:00 Temperature Pulse Rate 68 68 68 Respiratory 14 15 12 Rate Blood Pressure 150/88 158/91 159/89 (mmHg) O2 Sat by Pulse 96 97 96 Oximetry 07/17/18 07/17/18 07/17/18 06:01 06:15 06:30 Temperature Pulse Rate 63 68 69 Respiratory 17 15 13 Rate Blood Pressure 157/89 152/90 (mmHg) O2 Sat by Pulse 96 95 95 Oximetry 07/17/18 07/17/18 07/17/18 06:45 07:00 08:00 Temperature 98.4 F Pulse Rate 69 64 Respiratory 17 17 Rate Blood Pressure 161/92 154/91 (mmHg) O2 Sat by Pulse 95 94 Oximetry Oxygen Devices in Use Now: OxyMask Appearance: 83 yo M in nAD, AAOx3 Eyes: No Scleral Icterus, PERRLA Ears/Nose/Mouth/Throat: NL Teeth, Lips, Gums, Mucous Membranes Moist Neck: NL Appearance and Movements; NL JVP, Trachea Midline Respiratory: Symmetrical Chest Expansion and Respiratory Effort, Clear to Auscultation Cardiovascular: NL Sounds; No Murmurs; No JVD, RRR Abdominal: NL Sounds; No Tenderness; No Distention Lymphatic: No Cervical Adenopathy Extremities: No Clubbing, Cyanosis, - - trace ankle edema b/l Skin: No Nodules or Sclerosis Neurological: Alert and Oriented x 3, NL Muscle Strength and Tone Result Diagrams: 07/17/18 05:26 07/17/18 05:26 Microbiology and Other Data: Microbiology 07/13/18 21:33 Aerobic Blood Culture - Preliminary Blood Venous No Growth Day 1 Anaerobic Blood Culture - Preliminary No Growth Day 1 07/13/18 21:33 Aerobic Blood Culture - Preliminary Blood Venous No Growth Day 1 Anaerobic Blood Culture - Preliminary No Growth Day 1 Assess/Plan/Problems-Billing Assessment: 83 year old male admitted for hypoglycemia and hypoxia with SOB most likely due to COPD exacerbations and CHF exacerbations - Patient Problems (1) Acute respiratory failure with hypoxia Comment: - Initially his treatment was targetted for COPD and CHF exacerbations. - He does have severe lung disease (on high oxygen at home as baseline 6-8L) - had CAT call (07/16/18) that appeared to be related more to diastolic CHF. Today after diuresis pt is doing much better. Down to 11 L 02 via mask -CTA 07/16 neg for PE, but shows severe COPD (2) COPD (chronic obstructive pulmonary disease) Comment: - with exacerbation , Continue Duoneb and Anoro - cont Solu Medrol and Doxycycline (3) Diabetes Comment: - Presented with hypoglycemia - lispro SSI coverage with meals, holding Lantus (4) Diastolic CHF Comment: - d/c IV Lasix, cont home PO torsemide today - Echo -awaiting test to be done (5) DVT prophylaxis Comment: - Heparin 5000 SQ Q 8hrs Status and Disposition: cont ICU for now, poss transfer to floor later on today
[2018-07-17] MEDS: Magnesium Oxide TAB* 400 MG PO SCH (10:42)
[2018-07-17] MEDS: Insulin LISPRO* 1 UNITS UNIT SUBCUT SCH ×4 (11:22→20:39)
[2018-07-17] MEDS: NFT: Multivitamins/Mins (NF) AREDS2 1 CAP CAP PO SCH (11:23)
--- NOTE | 2018-07-17 16:18 | CONS ---
PULMONARY CONSULTATION REPORT: DATE OF CONSULT: 07/17/18 CONSULTATION REQUESTED BY: Dr. Pearson. REASON FOR CONSULT: Evaluation of COPD, hypoxemic respiratory failure. HISTORY OF PRESENT ILLNESS: The patient is an 83-year-old with history of severe COPD, severe pulmonary hypertension secondary to chronic hypoxemia. The patient is on 6 to 8 L O2 at home. The patient initially was brought in to the ED for evaluation of low blood sugars. His sugar was found to be 36, which increased to 67 after some juice. He had eaten with improvement in blood sugar. His sugars have been fluctuating since. He also has been having lower extremity swelling and abdominal distension with 10-pound weight gain. He has been receiving torsemide, which helped slightly with fluid overload. He usually takes Lantus of 35 in the morning. He has been compliant with his medications as prescribed. He has been compliant with oxygen. The patient's hospital course also complicated with worsening acute on chronic hypoxemic respiratory failure, significant dyspnea secondary to COPD and CHF exacerbation. The patient was transferred to ICU for close monitoring and increased FiO2 requirements. He had CAT call on the floor when his pulse ox dropped to low 60s on 07/16/18. The patient also found to be cyanotic and diaphoretic. He was found to have sinus rhythm with 2-second pause. His sugars were around 170s. He was placed on 100% FiO2 and was transferred to ICU. The patient improved since. His FiO2 requirements have decreased, currently requiring 15 L oxygen. The patient does not appear to be in any distress on my evaluation. He has been feeling better. He has been asking about when he would be able to go home. Denied significant cough or sputum production. Denied chest pain. The patient denied urinary complaints. The patient appeared to be mildly anxious. He denied headaches, skin rash. The patient denied constipation. PAST MEDICAL HISTORY: 1. COPD, on home O2 6 to 8 L at baseline. 2. Severe pulmonary hypertension. 3. Chronic hypoxemic respiratory failure. 4. Diabetes. 5. Coronary artery disease. 6. Recent diagnosis of chronic itching of unclear etiology. 7. Dyslipidemia. 8. GERD. 9. Upper GI bleed. MEDICATIONS: 1. Triamcinolone cream for itching. 2. Lantus 35 in the morning. 3. Torsemide. 4. Atorvastatin. 5. Timolol. 6. Simbrinza eye drops. 7. Anoro. 8. Albuterol. ALLERGIES: CONTRAST. FAMILY HISTORY: Noncontributory to current presentation. SOCIAL HISTORY: The patient lives at home with his . Former smoker with significant smoking history of 50-pack years. No alcohol or drug abuse. REVIEW OF SYSTEMS: All 14 systems reviewed as per HPI. PHYSICAL EXAM: The patient in bed, in no apparent distress, slightly anxious. Vital Signs: Temperature 98.4, pulse 72 beats per minute, respiratory rate 17 per minute, O2 sat 92% on 15 L, blood pressure 141/88. HEENT: Pupils equal, reactive to light. Mucous membranes moist. Lungs: Diminished air entry bilaterally. No wheeze. Cardiovascular: S1 and S2 present, regular. Abdomen : Soft, nontender, nondistended. Bowel sounds present. Extremities: Trace ankle edema bilaterally. Skin: No rash. Neurologic: Alert, awake, oriented x3. No focal deficits. DIAGNOSTIC STUDIES/LAB DATA: WBC count 8.0, hemoglobin 15.7, hematocrit 49, platelet counts of 109. Sodium 141, potassium 3.4, chloride 99, bicarb 31, BUN 32, creatinine 1.43. CTA from 07/17/18 was personally reviewed by me - no acute air space opacities noted. The patient with severe emphysematous changes bilaterally. No suspicious nodules or masses noted. IMPRESSION AND RECOMMENDATIONS: 83-year-old male with history of severe emphysema, chronic hypoxemic respiratory failure, history of congestive heart failure, admitted with hypoglycemia, acute chronic obstructive pulmonary disease and congestive heart failure excerebration. The patient is improving. FiO2 requirements are coming down. The patient has been on IV Solu-Medrol. I think it can be changed to p.o. to avoid further fluid overload. Continue with nebulizers. Hypoglycemia resolved. Sugars are well controlled at this time. He is also receiving torsemide for diuresis. He is not in significant overload at this time. We will continue to titrate FiO2 as tolerated. The patient not wanting noninvasive ventilation at this time. He has had chronic progressive course recently. Given his severe chronic obstructive pulmonary disease and requirement for higher FiO2, he would benefit from palliative care evaluation. He might be appropriate candidate for PATH or even hospice program. Out of bed to chair as tolerated. Rest of the management as per primary team. Thank you for allowing me to participate in the care of your patient. [id number]/[facility] #: [id number] MARTIN
[2018-07-17] MEDS: methylPREDNISolone SOD 40 MG* 1 ML VIAL IV SCH (18:15)
[2018-07-17] MEDS: Atorvastatin* 80 MG TAB PO SCH (18:15)
[2018-07-17] MEDS ORDERED: Insulin LISPRO* 1 UNITS UNIT SUBCUT ONE (18:42)
[2018-07-17] MEDS ORDERED: Insulin GLARGINE(*) 1 UNITS UNIT SUBCUT SCH (20:00)
[2018-07-17] MEDS ORDERED: Torsemide TAB 10 MG PO SCH (21:00)
[2018-07-18] MEDS: methylPREDNISolone SOD 40 MG* 1 ML VIAL IV SCH ×3 (01:29→23:05)
[2018-07-18 04:28] LABS: ABS Basophils 0.1 10^3/ul (0-0.2); ABS Lymphocytes 0.5 10^3/ul (1.0-4.8); ABS Monocytes 0.5 10^3/ul (0-0.8); Hematocrit 50 % (42-52); Hemoglobin 15.9 g/dL (14.0-18.0); Lymphocyte % 3.6 %; Mean Corpuscular HGB Conc 32 g/dL (31-36); Mean Corpuscular Hemoglobin 29 pg (27-31); Mean Corpuscular Volume 90 fL (80-94); Mean Platelet Volume 9.8 fL (7.4-10.4); Platelet Count 142 10^3/uL (150-450); Red Cell Distribution Width 18 % (10.5-15); White Blood Count 13.1 10^3/uL (3.5-10.8)
[2018-07-18 04:42] LABS: BUN/Creatinine Ratio 25.9 (8-20); Calcium 8.5 mg/dL (8.6-10.3); EGFR African American 42.5 (>60); EGFR Non-African American 35.1 (>60); Magnesium 2.3 mg/dL (1.9-2.7); Potassium 4.6 mmol/L (3.5-5.0)
[2018-07-18] MEDS: Heparin VIAL(*) 5000 UNITS/ML VIAL (FIVE THOUSAND) SUBCUT SCH ×3 (05:23→23:03)
[2018-07-18] MEDS: PTO: Umeclidin/Vilant 62.5 MDI 62.5/25 mcg 14 INH ELLIPTA DEVICE INH SCH (07:00)
[2018-07-18] MEDS: Insulin LISPRO* 1 UNITS UNIT SUBCUT SCH ×5 (08:31→23:01)
[2018-07-18] MEDS: DOXYcycline CAP(*) 100 MG PO SCH ×2 (08:32→23:01)
[2018-07-18] MEDS: Pantoprazole TAB * 40 MG TAB PO SCH ×2 (08:32→23:00)
[2018-07-18] MEDS: Potassium Chlor TAB* 20 MEQ TAB.ER PO SCH (08:32)
[2018-07-18] MEDS: [UNRECOGNIZED DRUG - OTHER] PO SCH (08:32)
[2018-07-18] MEDS: Magnesium Oxide TAB* 400 MG PO SCH (08:32)
[2018-07-18] MEDS: Timolol 0.5% OPTH.SOL* BTL LEFT EYE SCH (08:38)
[2018-07-18] MEDS: predniSONE TAB* 20 MG PO SCH (08:58)
[2018-07-18] MEDS: Furosemide IV* 10 MG/ML VIAL (40 MG) IV SCH (08:58)
--- NOTE | 2018-07-18 09:22 | PN ---
Subjective Date of Service: 07/18/18 Interval History: Pt feels well, down to 10 L on 02. No cough Past Medical History: Unchanged from Admission Objective Active Medications: Acetaminophen (Tylenol Tab*) 650 mg PO Q4H PRN PRN Reason: FEVER/PAIN Albuterol/Ipratropium (Duoneb (Albuterol 2.5 Mg/Ipratropium 0.5 Mg)) 1 neb INH [id number] AWAKE PRN PRN Reason: sob/wheexing Atorvastatin Calcium (Lipitor*) 80 mg PO QPM [facility] Last Admin: 07/17/18 18:15 Dose: 80 mg Dextrose (D50w Syringe 50 Ml*) 12.5 gm IV PUSH .FOR FS < 60 - SS PRN PRN Reason: FS < 60 Doxycycline Hyclate (Vibramycin Cap(*)) 100 mg PO BID [facility] Last Admin: 07/18/18 08:32 Dose: 100 mg Heparin Sodium (Porcine) (Heparin Vial(*)) 5,000 units SUBCUT Q8HR [facility] Last Admin: 07/18/18 05:23 Dose: 5,000 units Hydroxyzine HCl (Atarax Tab*) 25 mg PO Q6H PRN PRN Reason: itching Insulin Glargine (Lantus(*)) 20 units SUBCUT Q24H [facility] Last Admin: 07/17/18 20:11 Dose: 20 units Insulin Human Lispro (Humalog*) 0 units SUBCUT ACHS [facility]; Protocol Last Admin: 07/18/18 08:31 Dose: 2 unit Magnesium Oxide (Magox 400 Tab*) 400 mg PO DAILY [facility] Last Admin: 07/18/18 08:32 Dose: 400 mg Methylprednisolone Sodium Succinate (Solu-Medrol 40 Mg) 40 mg IV Q12H [facility] Last Admin: 07/18/18 08:32 Dose: 40 mg Pto: Equate Men's (Adult Gummy Vitamin) 1 dose PO QAM [facility] Last Admin: 07/18/18 08:32 Dose: 1 dose Pantoprazole Sodium (Protonix Tab*) 40 mg PO BID [facility] Last Admin: 07/18/18 08:32 Dose: 40 mg Potassium Chloride (Klor Con Er Tab*) 20 meq PO BID [facility] Last Admin: 07/18/18 08:32 Dose: 20 meq Timolol Maleate (Timoptic 0.5% Opth*) 1 drop LEFT EYE QAM [facility] Last Admin: 07/18/18 08:38 Dose: 1 drp Torsemide (Torsemide) 10 mg PO BID [facility] Umeclidinium/Vilanterol (Anoro 62.5/25 Ellipta Device (Nf)) 1 inh INH DAILY [facility] Last Admin: 07/18/18 07:00 Dose: Not Given Vital Signs - 8 hr 07/18/18 07/18/18 07/18/18 02:00 03:00 04:00 Pulse Rate 69 63 74 Respiratory 17 16 29 Rate Blood Pressure 101/79 109/69 135/83 (mmHg) O2 Sat by Pulse 91 92 94 Oximetry 07/18/18 07/18/18 07/18/18 04:02 05:00 05:01 Pulse Rate 73 63 69 Respiratory 20 17 18 Rate Blood Pressure 124/78 (mmHg) O2 Sat by Pulse 92 97 97 Oximetry 07/18/18 07/18/18 07/18/18 06:00 06:01 07:00 Pulse Rate 60 62 62 Respiratory 16 16 15 Rate Blood Pressure 126/76 108/67 (mmHg) O2 Sat by Pulse 92 91 92 Oximetry 07/18/18 07/18/18 07/18/18 08:00 08:15 09:00 Pulse Rate 67 61 78 Respiratory 16 18 20 Rate Blood Pressure 115/69 134/78 (mmHg) O2 Sat by Pulse 97 99 86 Oximetry Oxygen Devices in Use Now: OxyMask Appearance: 83 yo M in nAD, aAOx3 Eyes: No Scleral Icterus, PERRLA Ears/Nose/Mouth/Throat: NL Teeth, Lips, Gums, Mucous Membranes Moist Neck: NL Appearance and Movements; NL JVP, Trachea Midline Respiratory: Symmetrical Chest Expansion and Respiratory Effort, - - scant wheezes-b/l mid lungs Cardiovascular: NL Sounds; No Murmurs; No JVD, RRR Abdominal: NL Sounds; No Tenderness; No Distention Lymphatic: No Cervical Adenopathy Extremities: No Edema, No Clubbing, Cyanosis Skin: No Rash or Ulcers, No Nodules or Sclerosis Neurological: Alert and Oriented x 3, NL Muscle Strength and Tone Result Diagrams: 07/18/18 04:19 07/18/18 04:19 Microbiology and Other Data: Microbiology 07/13/18 21:33 Aerobic Blood Culture - Preliminary Blood Venous No Growth Day 1 Anaerobic Blood Culture - Preliminary No Growth Day 1 07/13/18 21:33 Aerobic Blood Culture - Preliminary Blood Venous No Growth Day 1 Anaerobic Blood Culture - Preliminary No Growth Day 1 Assess/Plan/Problems-Billing Assessment: 83 year old male admitted for hypoglycemia and hypoxia with SOB most likely due to COPD exacerbations and CHF exacerbations - Patient Problems (1) Acute respiratory failure with hypoxia Comment: - Initially his treatment was targetted for COPD and CHF exacerbations. - He does have severe lung disease (on high oxygen at home as baseline 6-8L) - had CAT call (07/16/18) that appeared to be related more to diastolic CHF.After diuresis pt is doing much better. Down to 10 L 02 via mask. will transfer to med floor -CTA 07/16 neg for PE, but shows severe COPD -cont solu Medrol with slow taper for COPD exacerbation and doxy. Leukocytosis likely related to steroid tx (2) COPD (chronic obstructive pulmonary disease) Comment: - with exacerbation , Continue Duoneb and Anoro - cont Solu Medrol and Doxycycline (3) Diabetes Comment: - Presented with hypoglycemia - lispro SSI coverage with meals, restarted Lantus (4) Diastolic CHF Comment: - dtreated with IV Lasix, cont home PO torsemide tomorrow. hold diuretics x one day today due to increase in creat and DAPHNE - Echo -awaiting test to be done (5) DAPHNE (acute kidney injury) Comment: creat climbing up due to use of diuretics and cotrast study on 07/16/18 Holding torsemide x one day (6) DVT prophylaxis Comment: - Heparin 5000 SQ Q 8hrs Status and Disposition: transfer to floor later on today. PT /OT placed for poss STR
--- NOTE | 2018-07-18 12:53 | ECHO ---
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 History: Coronary artery disease. Pulmonary hypertension. PMH: COPD exacerbation. Risk factors: Diabetes mellitus. Hyperlipidemia. Conclusions Summary: 1. Left ventricle: There is mild concentric hypertrophy. Systolic function is mildly reduced. The estimated ejection fraction is 40-45%. 2. Right ventricle: Systolic function is moderately reduced. Systolic pressure is severely increased. 3. Ventricular septum: There is septal flattening of the interventricular septum consistent with RV volume or pressure overload. 4. Right atrium: The atrium is severely dilated. 5. Mitral valve: There is moderate regurgitation, directed eccentrically. 6. Aortic valve: There is no evidence of stenosis. 7. Tricuspid valve: There is severe regurgitation. 8. Impressions: No previous study was available for comparison. Study data: Transthoracic echocardiogram. Complete 2D, spectral Doppler, and color flow Doppler. Location: ICU Patient status: Inpatient. Patient room number: ICU-8. Rhythm: Normal sinus rhythm with PAC's. Findings Left ventricle: The cavity size is below normal. There is mild concentric hypertrophy. Systolic function is mildly reduced. The estimated ejection fraction is 40-45%. Wall motion is normal; there are no regional wall motion abnormalities. Doppler parameters are consistent with abnormal left ventricular relaxation (grade 1 diastolic dysfunction). Right ventricle: The cavity size is mildly dilated. Wall thickness is mildly increased. Systolic function is moderately reduced. Systolic pressure is severely increased. Ventricular septum: There is septal flattening of the interventricular septum consistent with RV volume or pressure overload. Left atrium: The atrium is mildly dilated. Right atrium: The atrium is severely dilated. Mitral valve: The leaflets are mildly thickened. There is no evidence of stenosis. There is moderate regurgitation, directed eccentrically. Aortic valve: The valve is trileaflet. The leaflets are mildly thickened. There is no evidence of stenosis. There is no significant regurgitation. The LVOT to aortic valve VTI ratio is 0.44. The valve area by the velocity-time integral method is 1.40 cm^2. The valve area index by the velocity-time integral method is 0.79 cm^2/m^2. The ratio of LVOT to aortic valve peak velocity is 0.57. The valve area by the peak velocity method is 1.79 cm^2. The valve area index by the peak velocity method is 1.01 cm^2/m^2. The ratio of LVOT to aortic valve mean velocity is 0.49. The valve area by the mean velocity method is 1.5 cm^2. The valve area index by the mean velocity method is 0.87 cm^2/m^2. The mean systolic gradient is 2.0 mm Hg. The peak systolic gradient is 4.0 mm Hg. Tricuspid valve: The leaflets are mildly thickened. There is no evidence of stenosis. There is severe regurgitation. Pulmonic valve: The leaflets are normal thickness. There is no evidence of stenosis. There is mild regurgitation. The peak systolic gradient is 3.0 mm Hg. Aorta: Ascending aorta: The ascending aorta is appears normal. Aortic arch: The aortic arch is poorly visualized. The aortic root is not dilated. Pericardium: There is no pericardial effusion. Pulmonary arteries: Not well visualized. Systemic veins: Inferior vena cava: The vessel is dilated. The respirophasic diameter changes are blunted (< 50%). Measurements Left ventricle Value Ref Aortic valve Value Ref CLIF, LAX (L) 3.2 cm 4.2 - 5.8 Gabriela diam, ED 1.8 cm ----- ESD, LAX (L) 2.1 cm 2.5 - 4.0 Peak v, S 0.95 m/sec ----- FS, LAX 36 % 25 - 43 Mean v, S 0.63 m/sec ----- PW, ED, LAX (H) 1.1 cm 0.6 - 1.0 VTI, S 22.5 cm ----- CLIF (L) 3.2 cm 4.2 - 5.8 Mean grad, S 2.0 mm Hg ----- ESD (L) 2.1 cm 2.5 - 4.0 Peak grad, S 4.0 mm Hg ----- FS 36 % 25 - 43 LVOT/AV, VTI ratio 0.44 ----- PW, ED (H) 1.1 cm 0.6 - 1.0 EDGAR, VTI 1.40 cm^2 ----- EF 67 % 52 - 72 LVOT/AV, Vpeak ratio 0.57 ----- Mass 104 g 96 - 200 EDGAR, Vmax 1.79 cm^2 ----- Mass/bsa 59 g/m^2 50 - 102 Mass/ht 60.86 g/m --------- Mitral valve Value Ref Mass/ht^2.7 24.65 g/m^2.7 --------- Peak E 0.4 m/sec ----- E', lat gabriela, TDI (L) 4.5 cm/sec >=10.0 Peak A 0.65 m/sec -- --- E/e', lat gabriela, 9 --------- Decel time 162 ms ----- TDI Peak E/A ratio 0.6 ----- E', med gabriela, TDI (L) 3.1 cm/sec >=7.0 MR alias velocity 0.31 m/sec -- --- E/e', med gabriela, 13 --------- MR PISA radius 0.4 cm ----- TDI Max MR v 5.21 m/sec ----- E', avg, TDI 3.8 cm/sec --------- Regurg VTI 179.0 cm ----- E/e', avg, TDI 10 <=14 ERO, PISA 0.06 cm^2 -- --- MR vol, PISA 11 ml ----- LVOT Value Ref MR fraction, PISA 27 % ----- Diam, S 2.00 cm --------- Area 3.1 cm^2 --------- Pulmonic valve Value Ref Peak andres, S 0.54 m/sec --------- Peak v, S 0.84 m/sec ----- Mean andres, S 0.31 m/sec --------- Peak grad, S 3.0 mm Hg ----- VTI, S 10.0 cm --------- AL v, ED 2.28 m/sec ----- Mean grad, S 0 mm Hg --------- AL grad, ED 21 mm Hg ----- SV 30 ml --------- Tricuspid valve Value Ref Ventricular septum Value Ref TR peak v (H) 4.2 m/sec <=2.8 IVS, ED, LAX (H) 1.1 cm 0.6 - 1.0 Peak RV-RA grad, S 71 mm Hg ----- IVS, ED (H) 1.1 cm 0.6 - 1.0 Aortic root Value Ref Right ventricle Value Ref Root diam 3.4 cm <4.0 CLIF, LAX 3.9 cm --------- CLIF minor ax, A4C (H) 5.0 cm 1.9 - 3.5 Ascending aorta Value Ref mid AAo AP diam, S 3.1 cm ----- Pressure, S 86 mm Hg --------- Decending aorta Value Ref Left atrium Value Ref Ja peak andres 0.5 m/sec ----- AP dim, ES (H) 4.50 cm 3.00 - 4.00 Pulmonary artery Value Ref ML dim, A4C 4.1 cm --------- Pressure, S 83.0 mm Hg ----- SI dim, A4C 5.4 cm --------- Vol/bsa, ES, 1-p 37 ml/m^2 12 - 37 Inferior vena cava Value Ref A4C Diam 2.6 cm ----- Vol/bsa, ES, A/L 33 ml/m^2 16 - 34 Right atrium Value Ref SI dim, ES (H) 7.6 cm 3.4 - 5.3 ML dim, ES, A4C (H) 5.2 cm 2.6 - 4.4 Estimated RAP 15 mm Hg --------- Legend: (L) and (H) bradley values outside specified reference range. Prepared and electronically signed by Abhijit Wang MD 07/18/2018 12:52
[2018-07-18] MEDS ORDERED: Insulin LISPRO* 1 UNITS UNIT SUBCUT ONE (17:13)
[2018-07-18] MEDS ORDERED: Dextrose 50% Syringe 50 ML* 25 GM/50 ML SYRINGE IV PUSH PRN (17:13)
[2018-07-18] MEDS: Insulin GLARGINE(*) 1 UNITS UNIT SUBCUT SCH (17:27)
[2018-07-18] MEDS: Atorvastatin* 80 MG TAB PO SCH (17:27)
[2018-07-19] MEDS: Heparin VIAL(*) 5000 UNITS/ML VIAL (FIVE THOUSAND) SUBCUT SCH ×2 (06:04→13:25)
[2018-07-19 06:45] LABS: Hematocrit 45 % (42-52); Hemoglobin 14.6 g/dL (14.0-18.0); Mean Corpuscular HGB Conc 32 g/dL (31-36); Mean Corpuscular Hemoglobin 29 pg (27-31); Mean Corpuscular Volume 89 fL (80-94); Platelet Count 109 10^3/uL (150-450); Red Blood Count 5.06 10^6 /uL (4.18-5.48); Red Cell Distribution Width 17 % (10.5-15); White Blood Count 14.4 10^3/uL (3.5-10.8)
[2018-07-19 07:02] LABS: BUN/Creatinine Ratio 30.3 (8-20); Calcium 8.3 mg/dL (8.6-10.3); EGFR African American 41.7 (>60); EGFR Non-African American 34.4 (>60); Potassium 4.2 mmol/L (3.5-5.0)
[2018-07-19] MEDS: PTO: Umeclidin/Vilant 62.5 MDI 62.5/25 mcg 14 INH ELLIPTA DEVICE INH SCH (07:44)
[2018-07-19] MEDS: [UNRECOGNIZED DRUG - OTHER] PO SCH (08:17)
[2018-07-19] MEDS: Timolol 0.5% OPTH.SOL* BTL LEFT EYE SCH (08:18)
[2018-07-19] MEDS: Insulin LISPRO* 1 UNITS UNIT SUBCUT SCH ×4 (08:19→21:05)
[2018-07-19] MEDS: Pantoprazole TAB * 40 MG TAB PO SCH (08:19)
[2018-07-19] MEDS: Magnesium Oxide TAB* 400 MG PO SCH (08:19)
[2018-07-19] MEDS: DOXYcycline CAP(*) 100 MG PO SCH ×2 (08:19→20:45)
[2018-07-19] MEDS: methylPREDNISolone SOD 40 MG* 1 ML VIAL IV SCH (08:20)
[2018-07-19] MEDS ORDERED: Torsemide TAB 10 MG PO SCH (09:00)
[2018-07-19 11:59] LABS: Magnesium 2.4 mg/dL (1.9-2.7)
--- NOTE | 2018-07-19 16:53 | PN ---
Subjective Date of Service: 07/19/18 Interval History: Transferred from ICU yesterday. Pt on 8L of O2 this AM. Reports feeling back to his baseline while at rest, although normally he uses 6L at home. Walked with PT and not at his baseline while walking. Will need to determine home PT vs [facility] on DC. Will start PO steroids tomorrow. Past Medical History: Unchanged from Admission Objective Active Medications: Acetaminophen (Tylenol Tab*) 650 mg PO Q4H PRN PRN Reason: FEVER/PAIN Albuterol/Ipratropium (Duoneb (Albuterol 2.5 Mg/Ipratropium 0.5 Mg)) 1 neb INH [id number] AWAKE PRN PRN Reason: sob/wheexing Atorvastatin Calcium (Lipitor*) 80 mg PO QPM [facility] Last Admin: 07/18/18 17:27 Dose: 80 mg Dextrose (D50w Syringe 50 Ml*) 12.5 gm IV PUSH .FOR FS < 60 - SS PRN PRN Reason: FS < 60 Doxycycline Hyclate (Vibramycin Cap(*)) 100 mg PO BID [facility] Last Admin: 07/19/18 08:19 Dose: 100 mg Enoxaparin Sodium (Lovenox(*)) 40 mg SUBCUT BEDTIME [facility] Hydroxyzine HCl (Atarax Tab*) 25 mg PO Q6H PRN PRN Reason: itching Insulin Glargine (Lantus(*)) 35 units SUBCUT Q24H [facility] Last Admin: 07/18/18 17:27 Dose: 35 units Insulin Human Lispro (Humalog*) 0 units SUBCUT ACHS [facility]; Protocol Last Admin: 07/19/18 13:26 Dose: 4 unit Magnesium Oxide (Magox 400 Tab*) 400 mg PO DAILY [facility] Last Admin: 07/19/18 08:19 Dose: 400 mg Pto: Equate Men's (Adult Gummy Vitamin) 1 dose PO QAM [facility] Last Admin: 07/19/18 08:17 Dose: 1 dose Pantoprazole Sodium (Protonix Tab*) 40 mg PO DAILY [facility] Prednisone (Deltasone Tab*) 50 mg PO DAILY [facility] Timolol Maleate (Timoptic 0.5% Opth*) 1 drop LEFT EYE QAM [facility] Last Admin: 07/19/18 08:18 Dose: 1 drp Torsemide (Torsemide) 10 mg PO BID [facility] Last Admin: 07/19/18 08:19 Dose: 10 mg Umeclidinium/Vilanterol (Anoro 62.5/25 Ellipta Device (Nf)) 1 inh INH DAILY [facility] Last Admin: 07/19/18 07:44 Dose: Not Given Vital Signs - 8 hr 07/19/18 07/19/18 07/19/18 12:35 13:30 16:13 Temperature 97.1 F 97.8 F Pulse Rate 48 64 75 Respiratory 16 14 Rate Blood Pressure 114/56 119/66 (mmHg) O2 Sat by Pulse 88 90 90 Oximetry 07/19/18 16:14 Temperature Pulse Rate Respiratory Rate Blood Pressure (mmHg) O2 Sat by Pulse 90 Oximetry Oxygen Devices in Use Now: Nasal Cannula Appearance: chronically ill appearing elderly man in no acute distress, alert and interactive Ears/Nose/Mouth/Throat: Clear Oropharnyx, Mucous Membranes Moist Neck: NL Appearance and Movements; NL JVP Respiratory: - - mildly decrease air movement with scant wheeze b/l Cardiovascular: RRR Abdominal: NL Sounds; No Tenderness; No Distention, No Hepatosplenomegaly Extremities: No Edema, No Clubbing, Cyanosis Skin: No Rash or Ulcers Neurological: Alert and Oriented x 3 Result Diagrams: 07/19/18 06:38 07/19/18 06:38 Microbiology and Other Data: Microbiology 07/13/18 21:33 Aerobic Blood Culture - Preliminary Blood Venous No Growth Day 1 Anaerobic Blood Culture - Preliminary No Growth Day 1 07/13/18 21:33 Aerobic Blood Culture - Preliminary Blood Venous No Growth Day 1 Anaerobic Blood Culture - Preliminary No Growth Day 1 Assess/Plan/Problems-Billing Assessment: 83M with COPD, HF, admitted for hypoglycemia and hypoxia with SOB most likely due to COPD exacerbations and CHF exacerbations. - Patient Problems (1) Acute respiratory failure with hypoxia Comment: Initially his treatment was targetted for COPD and CHF exacerbations. He does have severe lung disease with home O2 6L. CAT call (07/16/18) that appeared to be related more to diastolic CHF, with CTA neg for PA, and improved after diuresis. Tranferred from ICU 07/18. -switch back to PO prednisone, cont doxy. Leukocytosis likely related to steroid tx (2) COPD (chronic obstructive pulmonary disease) Comment: - with exacerbation, continue home Anoro standing with Duoneb prn - cont PO steroid and doxycycline (3) Diastolic CHF Comment: - s/p IV Lasix, cont home PO torsemide (4) Diabetes Comment: - Presented with hypoglycemia - lispro SSI coverage with meals, restarted Lantus (5) DAPHNE (acute kidney injury) Comment: creat increased due to use of diuretics and cotrast study on 07/16/18 - cont to monitor Status and Disposition: Pending PT for [facility] vs home PT.
[2018-07-19] MEDS: Atorvastatin* 80 MG TAB PO SCH (17:36)
[2018-07-19] MEDS: Insulin GLARGINE(*) 1 UNITS UNIT SUBCUT SCH (17:38)
[2018-07-19] MEDS ORDERED: Enoxaparin(*) 40 MG/0.4 ML SYR SUBCUT SCH (18:00)
[2018-07-19] MEDS ORDERED: Enoxaparin(*) 30 MG/0.3 ML SYR SUBCUT SCH (21:00)
[2018-07-20 07:37] LABS: BUN/Creatinine Ratio 33.9 (8-20); Calcium 8.6 mg/dL (8.6-10.3); EGFR African American 46.5 (>60); EGFR Non-African American 38.4 (>60); Magnesium 2.4 mg/dL (1.9-2.7); Potassium 3.9 mmol/L (3.5-5.0)
[2018-07-20] MEDS: PTO: Umeclidin/Vilant 62.5 MDI 62.5/25 mcg 14 INH ELLIPTA DEVICE INH SCH (07:37)
[2018-07-20] MEDS ORDERED: Potassium Chloride* LIQUID 20 MEQ/15 ML UDC PO ONE (08:29)
--- NOTE | 2018-07-20 08:39 | PN ---
Subjective Date of Service: 07/20/18 Interval History: Starting PO steroids today. Will need to continue working with PT to determine [facility] vs home PT. Past Medical History: Unchanged from Admission Objective Active Medications: Acetaminophen (Tylenol Tab*) 650 mg PO Q4H PRN PRN Reason: FEVER/PAIN Albuterol/Ipratropium (Duoneb (Albuterol 2.5 Mg/Ipratropium 0.5 Mg)) 1 neb INH [id number] AWAKE PRN PRN Reason: sob/wheexing Atorvastatin Calcium (Lipitor*) 80 mg PO QPM [facility] Last Admin: 07/19/18 17:36 Dose: 80 mg Dextrose (D50w Syringe 50 Ml*) 12.5 gm IV PUSH .FOR FS < 60 - SS PRN PRN Reason: FS < 60 Doxycycline Hyclate (Vibramycin Cap(*)) 100 mg PO BID [facility] Last Admin: 07/19/18 20:45 Dose: 100 mg Enoxaparin Sodium (Lovenox(*)) 30 mg SUBCUT BEDTIME [facility] Last Admin: 07/19/18 20:45 Dose: 30 mg Hydroxyzine HCl (Atarax Tab*) 25 mg PO Q6H PRN PRN Reason: itching Insulin Glargine (Lantus(*)) 35 units SUBCUT Q24H [facility] Last Admin: 07/19/18 17:38 Dose: 35 units Insulin Human Lispro (Humalog*) 0 units SUBCUT ACHS [facility]; Protocol Last Admin: 07/19/18 21:05 Dose: 8 unit Magnesium Oxide (Magox 400 Tab*) 400 mg PO DAILY [facility] Last Admin: 07/19/18 08:19 Dose: 400 mg Pto: Equate Men's (Adult Gummy Vitamin) 1 dose PO QAM [facility] Last Admin: 07/19/18 08:17 Dose: 1 dose Pantoprazole Sodium (Protonix Tab*) 40 mg PO DAILY [facility] Potassium Chloride (Potassium Chloride Liquid) 20 meq PO ONCE ONE Stop: 07/20/18 08:30 Prednisone (Deltasone Tab*) 50 mg PO DAILY [facility] Timolol Maleate (Timoptic 0.5% Opth*) [facility] [place] Admin: 07/19/18 08:18 Dose: 1 drp Torsemide (Torsemide) 10 mg PO DAILY [facility] Umeclidinium/Vilanterol (Anoro 62.5/25 Ellipta Device (Nf)) 1 inh INH DAILY [facility] Last Admin: 07/20/18 07:37 Dose: 1 inh Vital Signs - 8 hr 07/20/18 07/20/18 07/20/18 02:05 02:20 07:38 Temperature 97.0 F Pulse Rate 60 67 Respiratory 20 16 Rate Blood Pressure 110/55 (mmHg) O2 Sat by Pulse 89 97 Oximetry 07/20/18 07:41 Temperature 98.3 F Pulse Rate Respiratory Rate Blood Pressure 116/72 (mmHg) O2 Sat by Pulse Oximetry Oxygen Devices in Use Now: Nasal Cannula Appearance: chronically ill appearing, NAD, no increased WOB Ears/Nose/Mouth/Throat: Clear Oropharnyx, Mucous Membranes Moist Respiratory: - - decreased air movement, no wheeze Cardiovascular: RRR Abdominal: NL Sounds; No Tenderness; No Distention, No Hepatosplenomegaly Extremities: - - 1+ edema senior care up shins Neurological: Alert and Oriented x 3 Result Diagrams: 07/19/18 06:38 07/20/18 07:09 Microbiology and Other Data: Microbiology 07/13/18 21:33 Aerobic Blood Culture - Preliminary Blood Venous No Growth Day 1 Anaerobic Blood Culture - Preliminary No Growth Day 1 07/13/18 21:33 Aerobic Blood Culture - Preliminary Blood Venous No Growth Day 1 Anaerobic Blood Culture - Preliminary No Growth Day 1 Assess/Plan/Problems-Billing Assessment: 83M with COPD, HF, admitted for hypoglycemia and hypoxia with SOB most likely due to COPD exacerbations and CHF exacerbations. - Patient Problems (1) Acute respiratory failure with hypoxia Comment: Initially his treatment was targetted for COPD and CHF exacerbations. He does have severe lung disease with home O2 6L. CAT call (07/16/18) that appeared to be related more to diastolic CHF, with CTA neg for PA, and improved after diuresis. Tranferred from ICU 07/18. -cont PO pred taper. Leukocytosis likely related to steroid tx (2) COPD (chronic obstructive pulmonary disease) Comment: - with exacerbation, continue home Anoro standing with Duoneb prn - cont PO steroid and doxycycline (3) Diastolic CHF Comment: - s/p IV Lasix, cont home PO torsemide (4) Diabetes Comment: - Presented with hypoglycemia - lispro SSI coverage with meals, restarted Lantus (5) DAPHNE (acute kidney injury) Comment: creat increased due to use of diuretics and cotrast study on 07/16/18 - cont to monitor Status and Disposition: Pending PT for [facility] vs home PT.
[2018-07-20] MEDS ORDERED: predniSONE TAB* 50 MG PO SCH (09:00)
[2018-07-20] MEDS ORDERED: Pantoprazole TAB * 40 MG TAB PO SCH (09:00)
[2018-07-20] MEDS ORDERED: Torsemide TAB 10 MG PO SCH (09:00)
[2018-07-20] MEDS: Insulin LISPRO* 1 UNITS UNIT SUBCUT SCH ×3 (09:10→17:01)
[2018-07-20] MEDS: [UNRECOGNIZED DRUG - OTHER] PO SCH (09:25)
[2018-07-20] MEDS: Magnesium Oxide TAB* 400 MG PO SCH (09:27)
[2018-07-20] MEDS: DOXYcycline CAP(*) 100 MG PO SCH (09:27)
[2018-07-20] MEDS: Timolol 0.5% OPTH.SOL* BTL LEFT EYE SCH (09:28)
[2018-07-20 15:32] VITALS: BP 114/68
--- NOTE | 2018-07-20 20:49 | DS ---
CC: Dr. Edward Bain; Dr. Carmita Morrow * DISCHARGE SUMMARY: DATE OF ADMISSION: 07/14/18 DATE OF DISCHARGE: 07/20/18 PRIMARY CARE PROVIDER: Dr. Edward Bain. PRIMARY DIAGNOSES: 1. Chronic obstructive pulmonary disease exacerbation. 2. Heart failure exacerbation. SECONDARY DIAGNOSES: 1. Diabetes. 2. Coronary artery disease. 3. Chronic itching. 4. Gastroesophageal reflux disease. CONSULTS: Pulmonology, Dr. Carmita Morrow. DISCHARGE MEDICATIONS: 1. Prednisone 40 mg daily to taper over 6 days. 2. Anoro Ellipta 1 inhalation daily. 3. Albuterol 2 puffs every 4 hours as needed for shortness of breath. 4. Torsemide 10 mg twice a day. 5. Hydroxyzine 25 mg 3 times a day as needed for itching. 6. PreserVision vitamin 1 tablet daily. 7. Timolol 0.5% 1 drop left eye daily. 8. Omeprazole 20 mg twice a day. 9. Insulin glargine 35 units daily. HISTORY OF PRESENT ILLNESS: An 83-year-old man with history of severe emphysema ; chronic hypoxic respiratory failure, on 6 to 8 L home O2, complicated by severe pulmonary hypertension; heart failure, reduced ejection fraction, who presented to the emergency room for concern for low blood sugar at home. The and daughter are constantly with him and had to leave home around 2 p.m. on the day of admission, when they returned home later that day, the patient seemed altered and was asking for juice. They checked his blood sugar and it was 36. They gave him several glasses orange juice and it came up to 67. He ate some chicken and beans and his blood glucose then went to 85, but then decreased again to the 70s, so for this reason they brought him to the emergency room for further evaluation. While he was hypoglycemic, the patient had tried get up and had fallen to the ground. He had denied chest pain, worsening of his chronic dyspnea on exertion. At baseline, he sleeps in a recliner. He has noticed some increase in his lower extremity swelling and abdominal distention with approximately 10-pound weight gain over the last month. Because the family could not bring the patient to see his primary care physician over the last week, his daughter was doubling his torsemide to 10 mg twice a day. He did lose a few pounds, but still had significant lower extremity swelling. He had no recent changes to his insulin, but he has had decreased p.o. over the couple weeks. At baseline, he requires 6 to 8 L of oxygen. When he wakes up in the morning, his O2 saturation is usually in the high 70s and after coughing and taking deep breaths, he can bring it up to the low 90s. HOSPITAL COURSE: In the emergency room, the patient was hypoxic. He was started on IV steroids, magnesium, and DuoNeb and admitted to the hospital. His home insulin was continued and he had hyperglycemia during the hospitalization likely from IV steroid use. Two days after admission, the patient had a clinical assessment team called while he was on the floor given pulse oximetry dropping to 60s and the patient was unable to be aroused. He was found cyanotic, but with a pulse. He was diaphoretic. His tele was unremarkable during the event. His blood glucose was in the 170s. He was placed on 100% FiO2 and his oxygen saturation would not increase above 88%, so he was transferred to the ICU and placed on Vapotherm. Family and the patient had confirmed that he was DNI. CT PE was ordered, but was negative for PE. The patient was given more aggressive diuresis and had improvement in his hypoxia and altered mental status. He was evaluated by Dr. Morrow of Pulmonology and eventually was declining noninvasive ventilation. She recommended to continue titrating down O2 to home dose with continuation of steroids and nebulizers with continued diuresis. She did recommend consideration of palliative care evaluation as he would likely be a candidate for PATH or hospice, although the patient and his family declined a hospice referral and evaluation. He was transferred to the floor and was transitioned to oral steroids and diuretics. He was evaluated by Physical Therapy, who recommended continued skilled physical therapy intervention, preferably rehab, although the patient refused to be placed into a rehab facility. As he was otherwise ready for discharge, he would return home with VNS referral for possible home physical therapy. PERTINENT STUDIES AND LABS: TSH 1.96. Hemoglobin A1c 7.4. TTE: LV with mild concentric hypertrophy. Systolic function mildly reduced with EF 40% to 45%. Right ventricle with systolic function moderately reduced with systolic pressure severely increased. There is septal flattening of the interventricular septum consistent with RV volume pressure overload. RA severely dilated. Mitral valve with moderate regurgitation. Tricuspid valve with severe regurgitation. Chest CTA without pulmonary embolic disease or pulmonary consolidation, significant for severe emphysematous change in the mid to upper lung shafer with RV enlarged as well as RA. Venous Doppler study without sonographic evidence of DVT. 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 He is to check his weights and blood sugar daily and record this log and bring it to his next primary care appointment. He is given a steroid taper on discharge and was discharged on a double his home dose of torsemide. He was referred for visiting nurse services for evaluation for home health aid and home physical therapy. He shoudl resume a healthy diet with activity level as tolerated. DISPOSITION: To home. CONDITION: Improved, but guarded. TIME SPENT: Approximately 60 minutes was spent on discharge of this patient, more than half of which was spent with care, coordination, and bedside for interview and exam. [id number]/CPS #: [id number] MARTIN
== END 2018-07-20 18:35 | disposition home or self-care (01) | DRG 190 ==
LOC: ED 20:47 → MEDTELE 07-14 00:14 → OBSVTOIN 07-15 17:47 → ICU 07-16 10:43 → MED 07-18 17:56
PROVIDERS: ADMIT Pediatrics; ATTEND Internal Medicine
DX: J43.9 Emphysema, unspecified (principal); I50.33 Acute on chronic diastolic (congestive) heart failure; J96.21 Acute and chronic respiratory failure with hypoxia; N17.9 Acute kidney failure, unspecified; E11.649 Type 2 diabetes mellitus with hypoglycemia without coma; I27.20 Pulmonary hypertension, unspecified; I11.0 Hypertensive heart disease with heart failure; T38.0X5A Adverse effect of glucocorticoids and synthetic analogues, initial encounter; Y92.239 Unspecified place in hospital as the place of occurrence of the external cause; I08.1 Rheumatic disorders of both mitral and tricuspid valves; D64.9 Anemia, unspecified; E78.5 Hyperlipidemia, unspecified; M17.0 Bilateral primary osteoarthritis of knee; H26.9 Unspecified cataract; H40.9 Unspecified glaucoma; E11.65 Type 2 diabetes mellitus with hyperglycemia; D72.828 Other elevated white blood cell count; T50.2X5A Adverse effect of carbonic-anhydrase inhibitors, benzothiadiazides and other diuretics, initial encounter; Z72.89 Other problems related to lifestyle; I25.10 Atherosclerotic heart disease of native coronary artery without angina pectoris; K21.9 Gastro-esophageal reflux disease without esophagitis; L29.9 Pruritus, unspecified; Z79.51 Long term (current) use of inhaled steroids; Z79.4 Long term (current) use of insulin; Z99.81 Dependence on supplemental oxygen; Z66 Do not resuscitate; Z91.041 Radiographic dye allergy status; Z95.5 Presence of coronary angioplasty implant and graft; Z87.442 Personal history of urinary calculi; Z98.41 Cataract extraction status, right eye; Z82.49 Family history of ischemic heart disease and other diseases of the circulatory system; Z87.891 Personal history of nicotine dependence; Y92.9 Unspecified place or not applicable
CPT/HCPCS: 36415; 36600; 71045; 71275; 80048; 80053; 80076; 82803; 82947; 83036; 83605; 83735; 83880; 84100; 84443; 84484; 85025; 85027; 85060; 85379; 85610; 85730; 86140; 87040; 93005; 93306; 93970; 94640; 99283; A9270-GY; G0378; G8978-GP-CJ; G8979-GP-CH; G8987-GO-CJ; G8988-GO-CI; J1644; J1650; J1940; J2920; J2930; J3475; J7512; Q9967